=== PATIENT | female | born 1940 | race Caucasian/White ===

== ENCOUNTER 2022-10-17 13:12 | Inpatient (IN) ==
[2022-10-17] MEDS ORDERED: PANTOprazole 40 MG in SYRINGE 0 ML IV ONE (13:33)
[2022-10-17] MEDS ORDERED: SODIUM CHLORIDE 0.9% 1000ML 1,000 ML IV SCH (13:45)
[2022-10-17 13:46] LABS: iSTAT Creatinine 3.4 mg/dl (0.6-1.3); iSTAT Hemoglobin 8.8 g/dl (12.0-16.0); iSTAT Potassium 3.4 mmol/L (3.3-5.0)
[2022-10-17 13:50] LABS: Hematocrit (blood only) 26.7 % (37.0-47.0); Mean Corpuscular Hemoglobin 30.8 pg (25.0-34.0); Mean Corpuscular Hgb Conc 33.7 g/dL (32.0-36.0); Mean Corpuscular Volume 91.4 fL (80.0-100.0); Mean Platelet Volume 9.8 fL (9.4-12.4); Platelet Count 113 K/uL (130-400); RDW Coefficient of Variation 14.2 % (11.5-14.5); RDW Standard Deviation 47.2 fL (36.4-46.3); Red Blood Count 2.92 M/uL (4.20-5.40); White Blood Count 7.88 K/ul (4.8-10.8)
[2022-10-17] MEDS ORDERED: SODIUM CHLORIDE 0.9% 1000ML 1,000 ML IV ONE (14:06)
[2022-10-17 14:07] LABS: Albumin Level 3.3 gm/dl (3.4-5.0); BUN Creatinine Ratio 16.7 (10-20); Bilirubin Direct 2.8 mg/dl (0-0.2); Bilirubin,Total 3.9 mg/dl (0.2-1.0); Creatinine Clr Calc Pharmacy 14.7 ml/min; Est GFR (African American) 15.5 ml/min; Est GFR (Non-African American) 13.4 ml/min; Magnesium 1.3 mg/dl (1.7-2.4); Potassium 3.5 mmol/L (3.5-5.1); Total Protein 6.2 gm/dl (6.0-8.3)
[2022-10-17] MEDS ORDERED: CEFEPIME 2,000 MG/20 ML VIAL IV STA (14:08)
--- NOTE | 2022-10-17 14:10 | CT Scan Report ---
CT SCAN OF THE BRAIN WITHOUT IV CONTRAST CLINICAL HISTORY: Vomiting. Change in mental status. COMPARISON STUDY: CT of the brain dated 10/14/2020. TECHNIQUE: Unenhanced axial CT scan of the brain is performed from the vertex to the skull base. A do se lowering technique was utilized adhering to the principles of ALARA. FINDINGS: Brain parenchyma: There is age-related involutional change noting mild subcortical and periventricula r microangiopathic disease. There is no hemorrhage, mass effect, or evidence of acute territorial isc hemia by CT criteria. Shell-white matter differentiation is preserved. No extra-axial fluid collection is seen. Ventricles, sulci, cisterns: Prominent secondary to involutional change. Intracranial vasculature: There is atherosclerotic calcification of the cavernous carotid and vertebr al artery. Calvarium: Unremarkable. Sinuses and mastoids: There is a 1.6 cm retention cyst in the left maxillary antrum. The remaining pa ranasal sinuses are clear. The mastoid air cells are well pneumatized. Orbits: The bony orbits are grossly intact. There are bilateral ocular lens implants. IMPRESSION: There is no hemorrhage, mass effect, or evidence of acute territorial ischemia by CT duy nichols. ACT 112: Negative or not required by law. Electronically signed by: Andrew Sanders M.D. 10/17/2022 2:09 PM
--- NOTE | 2022-10-17 14:12 | CT Scan Report ---
CT chest diagnostic wo con CLINICAL HISTORY: abn cxr, ams TECHNIQUE: Multidetector row helical CT of the chest was performed. Coronal and sagittal reformations were obtained. Automated dose lowering techniques and/or adjustment according to patient size were u tilized for this exam. CT DOSE: 2837.45 mGy.cm Comparison: Comparison is made to chest radiograph 10/17/2022 FINDINGS: Lungs and pleura: Atelectasis versus scarring is seen in the dependent portions of the lungs. Heart and pericardium: Mitral enlargement is seen. Calcifications are noted. Vessels: Severe atherosclerotic changes in the aorta and coronary arteries. Mediastinum and sara: Unremarkable. Chest wall and lower neck: Unremarkable. Abdomen: For findings below the diaphragm, please refer to CT of the abdomen dated the same. Bones: Degenerative changes in the thoracic spine. IMPRESSION: 1. Atelectasis is seen without evidence of consolidation. 2. Cardiomegaly with biatrial enlargement, mitral annular calcifications are seen. ACT 112: Negative or not required by law. Electronically signed by: Sandro Arora M.D. 10/17/2022 2:11 PM
[2022-10-17 14:18] LABS: Troponin I High Sensitivity 368.7 pg/ml (0-14)
[2022-10-17 14:35] LABS: Basophils # (auto) 0.01 K/uL (0-0.2); Basophils % (auto) 0.1 %; Dohle Bodies 2+; Immature Granulocytes # (auto) 0.17 K/uL (0.01-0.20); Immature Granulocytes % (auto) 2.2 %; Lymphocytes # (auto) 0.39 K/uL (1.2-3.4); Lymphocytes % (auto) 4.9 %; Monocytes # (auto) 0.38 K/uL (0.11-0.59); Monocytes % (auto) 4.8 %; Neutrophils # (auto) 6.93 K/uL (1.40-6.50)
[2022-10-17] MEDS: MAGNESIUM SULFATE / D5W 1 GM/100 ML BAG IV SCH ×2 (14:50→16:00)
--- NOTE | 2022-10-17 14:57 | XRay Report ---
XR chest 1V portable HISTORY: Sepsis COMPARISON: None. FINDINGS: The heart is enlarged. Rotated study. No pneumothorax. There are low lung volumes. Mild john tral pulmonary vascular congestion without overt edema. Bibasilar linear densities favor subsegmental atelectasis. IMPRESSION: 1. Mild central pulmonary vascular congestion without overt edema. 2. Cardiomegaly. 3. Low lung volumes with bibasilar linear densities. This favors subsegmental atelectasis. ACT 112: Negative or not required by law. Electronically signed by: Christiano Nieto M.D. 10/17/2022 2:55 PM
--- NOTE | 2022-10-17 15:08 | CT Scan Report ---
ABDOMEN AND PELVIS CT WITHOUT CONTRAST CT DOSE: HISTORY: Nausea. Vomiting. Abdominal pain. TECHNIQUE: Multiaxial CT images of the abdomen and pelvis were performed without contrast. A dose lo wering technique was utilized adhering to the principles of ALARA. COMPARISON STUDY: None. FINDINGS: Bibasilar densities favor subsegmental atelectasis. No pneumoperitoneum. No pneumatosis. No acute fractures identified. The heart is mildly enlarged. There is a small hiatus hernia. There is a surgical clip within the proximal stomach. Hyperdense material within the proximal stomach favors in gested contents. Cholecystectomy. Hepatic steatosis. The unenhanced spleen, adrenal glands, and pancr eas unremarkable. The common bile duct is mildly distended measuring up to 11 mm. Possible 7 mm hyper dense focus at the distal common bile duct on image 140. This raises the possibility of a distal comm on bile duct stone. Bilateral cortical renal atrophy is noted. No renal or ureteral calculi. No hydro nephrosis. No retroperitoneal lymphadenopathy. Calcified plaque within the normal caliber abdominal a siri. Gas within the bladder. No bladder wall thickening. There is a small amount of gas within the v agina. The uterus and ovaries are within normal limits. No pelvic lymphadenopathy or pelvic free flui d. Colonic diverticulosis. No evidence for acute diverticulitis. Calcified nodule within the left low er quadrant adjacent to the proximal sigmoid colon. This is likely benign. No bowel wall thickening o r obstruction. Normal appendix. IMPRESSION: 1. No bowel wall thickening or obstruction. 2. Possible 7 mm stone at the distal common bile duct. Correlation with LFTs recommended. Follow-up [facility] [employer] or ERCP could also be used for further evaluation. 3. Small hiatus hernia. 4. Colonic diverticulosis. No evidence for acute diverticulitis. 5. Normal appendix. 6. Gas within the bladder. This may be due to prior catheterization. 7. Additional findings as described above. ACT 112: Negative or not required by law. Electronically signed by: Christiano Nieto M.D. 10/17/2022 3:06 PM
[2022-10-17 15:24] LABS: Base Excess VBG -2.2 mEq/L; HCO3 VBG 22 mmol/L; Oxygen Saturation VBG 92.4 %; PCO2 VBG 37 mmHg (38-50); PO2 VBG 60 mmHg; pH VBG 7.39 (7.36-7.41)
--- NOTE | 2022-10-17 15:52 | Emergency Department Note ---
Impression & Plan Altered mental status, Hypotension, Choledocholithiasis, Abnormal LFTs, Chronic kidney disease (CKD), Anemia, Prolonged QT interval ED Provider Note ED Provider Note NAME: TRAN COOK AGE:82 SEX: Female : 1940 ARRIVES VIA: EMS INFORMANT: Family ED PROVIDER(s): Yanelis Esquivel DO CHIEF COMPLAINT: Altered mental status, vomiting HPI: This is an 82-year-old female brought in by EMS due to concern for altered mental status, nausea/vomiting, and abdominal pain. Patient unable to provide history at bedside. EMS reported patient was hypotensive and mildly hypoxic in route. She was given IV fluids as well as 1 dose of push dose epinephrine push with improvement. She was placed on oxygen via nasal cannula with improvement. Family states patient complained of abdominal pain, nausea and vomiting last nig ht. She states she seemed improved and was able to go to bed. Another family member checked on her this morning and found her seated on the floor next to her bed. She did not recall falling, and thought perhaps she had slid out of bed. Family states she seemed more confused today and they were unable to get her up so 911 was contacted. Family states she did recently have a GI bleed and underw ent endoscopy. They states she does not take any blood thinners but does take a low-dose aspirin. She states she is a diabetic and they did check her blood sugar this morning prior to EMS arrival and it was in the 200s. EMS reported their check of blood glucose was in the 300s. PAST MEDICAL HISTORY:See Below PAST SURGICAL HISTORY:See Below FAMILY HISTORY:See Below SOCIAL HISTORY:See Below HOME MEDICATIONS:See Below ALLERGIES:See Below VITALS:See Below PHYSICAL EXAMINATION: GENERAL: alert, well appearing, well nourished, no distress, non-toxic HEAD: nc/at EYE EXAM: normal conjunctiva, PERRL and EOM's grossly intact OROPHARYNX: no exudate, no erythema, lips, buccal mucosa, and tongue normal and mucous membranes are dry NECK: supple, no nuchal rigidity, no adenopathy, non-tender LUNGS: Clear to auscultation. Normal chest wall mechanics, no w/r/r HEART: no murmurs, S1 normal and S2 normal ABDOMEN: abdomen soft, non-tender, normo-active bowel sounds, no masses, no rebound or guarding. BACK: Back is symmetrical on inspection and there is no deformity, no midline tenderness, no CVA tenderness. SKIN: no rashes, petechiae, orbruising UPPER EXTREMITIES: upper extremities are grossly normal. FROM, nml pulses b/l. No evidence of trauma or deformity LOWER EXTREMITIES: No pitting edema. FROM, nml pulses b/l. No evidence of trauma or deformity NEURO EXAM: Pleasantly confused, will answer simple yes/no questions, cranial nerves II-XII grossly intact, normal speech, no facial droop,nogross weakness of arms, no gross weakness of legs. Gross sensation intact. No ataxia. Vital Signs: reviewed and remarkable Differential Diagnosis: CVA, ICH, bacteremia/sepsis, dehydration, electrolyte abnormality, occult traumatic injury, colitis, bowel obstruction, pancreatitis, perforation, mesenteric ischemia, as well as others were concern MEDICAL DECISION MAKING: This is an 82 yo female who presents emerged part via EMS due to altered mental status and being found down, with unknown mechanism. Patient noted to be hypotensive and hypoxic. She was given IV fluids as well as push dose epi by EMS and route and oxygen was improved via supplemental O2 with nasal cannula. Labs drawn and sent, IV established, patient continued IV fluids and blood pressure continued to improve. EKG and chest x-ray performed at bedside and interpreted by me and patient monitored on telemetry throughout. Patient was noted to be fluid responsive and with continued IV fluids blood pressure co ntinued to improve and she was able to be dropped back to maintenance with stability. She was sent for CT imaging due to concern for trauma as well as evaluation for other etiology given reported GI symptoms preceding. Patient's mentation improved as she was treated here. She was given empiric antibiotics after blood work began to result. CT revealed common bile duct stone which likely explains her GI symptoms as well as her abnormal LFTs. Several calls were made as it was not initially clear if we had GI available who could perform ERCP. Ultimately it was determined the patient would be able to be admitted here medically with GI consult for ERCP. Patient and family updated at bedside several times and verbalized understanding. Consultation(s): 1605: Discussed with Dr. Oquendo, Intercom. 163: Discussed with Dr. Peralta. 165: Discussed with Tatyana. States Dr. Marie is available. 1735: Discussed with Robby Bustamante hospitalist team. ER Treatment Provided: See below Diagnostics Interpreted By Me: -ECG: Normal sinus at 77, normal axis, normal QRS, prolonged QT, nonspecific S T/T wave changes -Cardiac Monitoring: An order was placed for continuous cardiac monitoring. The monitor shows a rate of 68 with rhythm. -Laboratory studies: As stated above and show below. -Imaging studies: Chest x-ray:, Suboptimal, patient rotated, CM, no pneumothorax or obvious rib fx Triage Nursing Note Reviewed Prior/Outside Records Reviewed Critical Care: Critical care of 49 min performed to assess and manage high likelihood of life- threatening AMS and stable common bile duct stone, involving labs and imaging performed with assessment to evaluate AMS Diagnosis with frequent reassessment. This time includes bedside time, treatment discussions with patient/family/consultants, documentation time and excludes procedure time. Past Med/Surg History Medical History (Updated 10/19/22 @ 01:24 by Yanelis Esquivel DO) Abnormal LFTs Acute metabolic encephalopathy Anemia Choledocholithiasis CKD (chronic kidney disease), stage IV DM type 2 (diabetes mellitus, type 2) Elevated troponin Encounter for pre-operative examination HLD (hyperlipidemia) HTN (hypertension) Moderate aortic stenosis Postsurgical hypothyroidism Prolonged QT interval Surgical History History of cholecystectomy History of thyroidectomy Social History Smoking Status: Never smoker Second Hand Exposure: No; Do You Dip or Chew Tobacco: No; Tobacco Cessation Education Requested by Patient: No Hx Alcohol Use: No Hx Substance Use: No Preferred Language: Niuean Communication Ability: Effective [employer] Required: No Beliefs That Will Affect Care: None Current Living Situation: Alone Current Living Situation Comment: patient lives in senior community apartment building Other Information That Helps Us Care for You: Yes (particular about foods; please give options) Feels Safe at Home: Yes Safety Concerns: Feels Safe At This Time Assistive Devices: Walker Allergies Allergies Allergy/AdvReac Type Severity Reaction Status Date / Time sulfamethoxazole Allergy unknown Unverified 10/14/20 14:58 [From Bactrim] reaction trimethoprim [From Bactrim] Allergy unknown Unverified 10/14/20 14:58 reaction Home Meds Home Medications Medication Instructions Recorded Confirmed aspirin 81 mg tablet,delayed 81 mg PO DAILY 10/14/20 10/17/22 release (Alberto Low Dose Aspirin) atorvastatin 40 mg tablet 40 mg PO QPM 10/14/20 10/17/22 cholecalciferol (vitamin D3) 125 125 mcg PO DAILY 10/14/20 10/17/22 mcg (5,000 unit) capsule docusate sodium 100 mg capsule 100 mg PO BID PRN Other 10/14/20 10/17/22 famotidine 20 mg tablet 20 mg PO BID 10/14/20 10/17/22 furosemide 40 mg tablet 40 mg PO DAILY 10/14/20 10/17/22 gabapentin 400 mg capsule 400 mg PO BID 10/14/20 10/17/22 insulin detemir U-100 100 unit/mL 11 unit subcut HS 10/14/20 10/17/22 (3 mL) subcutaneous pen (Levemir FlexTouch U-100 Insulin) levothyroxine 50 mcg tablet 50 mcg PO DAILY 10/14/20 10/17/22 liraglutide 0.6 mg/0.1 mL (18 mg/3 1.8 mg subcut QAM 10/14/20 10/17/22 mL) subcutaneous pen injector (Victoza 3-George) sodium bicarbonate 650 mg tablet 650 mg PO BID PRN Other 10/14/20 10/17/22 calcitriol 0.25 mcg capsule 0.25 mcg PO DAILY 10/17/22 10/17/22 diclofenac sodium 1 % topical gel See Rx Instructions .Route 10/17/22 10/17/22 .COMPLEX PRN Other ezetimibe 10 mg tablet 10 mg PO DAILY 10/17/22 10/17/22 glipizide 2.5 mg tablet, extended 2.5 mg PO DAILY 10/17/22 10/17/22 release 24 hr lisinopril 20 mg tablet 20 mg PO DAILY 10/17/22 10/17/22 loratadine 10 mg tablet (Allergy 10 mg PO DAILY 10/17/22 10/17/22 Relief (loratadine)) polysaccharide iron complex 150 mg 150 mg PO BID 10/17/22 10/17/22 iron capsule (iFerex 150) Results & Data (ED) Vital Signs Vital Signs - 24 hr 10/17/22 13:23 10/17/22 13:31 10/17/22 13:31 Temperature 37.5 C Temperature Source Oral Pulse Rate 85 85 Pulse Rate [Right Finger] Pulse Rate from SpO2 Sensor Pulse Rhythm [Right Finger] Pulse Strength [Right Finger] Respiratory Rate 24 Respiratory Effort / Characteristics Respiratory Depth Respiratory Pattern Blood Pressure 96/50 L Blood Pressure [Left Arm] Blood Pressure Mean 65 Blood Pressure Mean [Left Arm] Blood Pressure Position [Left Arm] Pulse Oximetry 94 88 L Oxygen Delivery Method Nasal Cannula Room Air Oxygen Flow Rate 2 Sepsis Recent Fever Within 48 Hours No Sepsis New/Unexplained Change in Mental Status No Sepsis Action Taken by Nursing Physician Notified Oxygen Flow Rate - Titration 2 Pulse Oximetry Post Tiitration 98 10/17/22 13:44 10/17/22 13:17 10/17/22 13:19 Temperature Temperature Source Pulse Rate 84 Pulse Rate [Right Finger] Pulse Rate from SpO2 Sensor 83 Pulse Rhythm [Right Finger] Pulse Strength [Right Finger] Respiratory Rate 18 Respiratory Effort / Characteristics Respiratory Depth Respiratory Pattern Blood Pressure 89/51 L Blood Pressure [Left Arm] Blood Pressure Mean 72 Blood Pressure Mean [Left Arm] Blood Pressure Position [Left Arm] Pulse Oximetry 98 90 Oxygen Delivery Method Nasal Cannula Oxygen Flow Rate 2 2 Sepsis Recent Fever Within 48 Hours Sepsis New/Unexplained Change in Mental Status Sepsis Action Taken by Nursing Oxygen Flow Rate - Titration Pulse Oximetry Post Tiitration 10/17/22 13:19 10/17/22 13:21 10/17/22 13:21 Temperature Temperature Source Pulse Rate 89 80 Pulse Rate [Right Finger] Pulse Rate from SpO2 Sensor 83 80 Pulse Rhythm [Right Finger] Pulse Strength [Right Finger] Respiratory Rate 20 18 Respiratory Effort / Characteristics Respiratory Depth Respiratory Pattern Blood Pressure 97/47 L Blood Pressure [Left Arm] Blood Pressure Mean 63 Blood Pressure Mean [Left Arm] Blood Pressure Position [Left Arm] Pulse Oximetry 97 98 Oxygen Delivery Method Oxygen Flow Rate 2 2 Sepsis Recent Fever Within 48 Hours Sepsis New/Unexplained Change in Mental Status Sepsis Action Taken by Nursing Oxygen Flow Rate - Titration Pulse Oximetry Post Tiitration 10/17/22 13:22 10/17/22 13:22 10/17/22 13:25 Temperature Temperature Source Pulse Rate 83 80 Pulse Rate [Right Finger] Pulse Rate from SpO2 Sensor 79 79 Pulse Rhythm [Right Finger] Pulse Strength [Right Finger] Respiratory Rate 22 22 Respiratory Effort / Characteristics Respiratory Depth Respiratory Pattern Blood Pressure 98/44 L Blood Pressure [Left Arm] Blood Pressure Mean 62 Blood Pressure Mean [Left Arm] Blood Pressure Position [Left Arm] Pulse Oximetry 98 98 Oxygen Delivery Method Oxygen Flow Rate 2 2 Sepsis Recent Fever Within 48 Hours Sepsis New/Unexplained Change in Mental Status Sepsis Action Taken by Nursing Oxygen Flow Rate - Titration Pulse Oximetry Post Tiitration 10/17/22 13:25 10/17/22 13:30 10/17/22 13:30 Temperature Temperature Source Pulse Rate 77 Pulse Rate [Right Finger] Pulse Rate from SpO2 Sensor 78 Pulse Rhythm [Right Finger] Pulse Strength [Right Finger] Respiratory Rate 23 Respiratory Effort / Characteristics Respiratory Depth Respiratory Pattern Blood Pressure 88/48 L 91/46 L Blood Pressure [Left Arm] Blood Pressure Mean 63 59 Blood Pressure Mean [Left Arm] Blood Pressure Position [Left Arm] Pulse Oximetry 98 Oxygen Delivery Method Oxygen Flow Rate 2 Sepsis Recent Fever Within 48 Hours Sepsis New/Unexplained Change in Mental Status Sepsis Action Taken by Nursing Oxygen Flow Rate - Titration Pulse Oximetry Post Tiitration 10/17/22 13:35 10/17/22 13:35 10/17/22 13:40 Temperature Temperature Source Pulse Rate 81 Pulse Rate [Right Finger] Pulse Rate from SpO2 Sensor 82 Pulse Rhythm [Right Finger] Pulse Strength [Right Finger] Respiratory Rate 19 Respiratory Effort / Characteristics Respiratory Depth Respiratory Pattern Blood Pressure 94/50 L 99/53 L Blood Pressure [Left Arm] Blood Pressure Mean 68 75 Blood Pressure Mean [Left Arm] Blood Pressure Position [Left Arm] Pulse Oximetry 99 Oxygen Delivery Method Oxygen Flow Rate 2 Sepsis Recent Fever Within 48 Hours Sepsis New/Unexplained Change in Mental Status Sepsis Action Taken by Nursing Oxygen Flow Rate - Titration Pulse Oximetry Post Tiitration 10/17/22 13:40 10/17/22 13:56 10/17/22 13:57 Temperature Temperature Source Pulse Rate 76 83 Pulse Rate [Right Finger] Pulse Rate from SpO2 Sensor 76 77 Pulse Rhythm [Right Finger] Pulse Strength [Right Finger] Respiratory Rate 21 20 Respiratory Effort / Characteristics Respiratory Depth Respiratory Pattern Blood Pressure 95/51 L Blood Pressure [Left Arm] Blood Pressure Mean 69 Blood Pressure Mean [Left Arm] Blood Pressure Position [Left Arm] Pulse Oximetry 98 98 Oxygen Delivery Method Oxygen Flow Rate 2 2 Sepsis Recent Fever Within 48 Hours Sepsis New/Unexplained Change in Mental Status Sepsis Action Taken by Nursing Oxygen Flow Rate - Titration Pulse Oximetry Post Tiitration 10/17/22 13:57 10/17/22 14:00 10/17/22 14:00 Temperature Temperature Source Pulse Rate 77 74 Pulse Rate [Right Finger] Pulse Rate from SpO2 Sensor 77 72 Pulse Rhythm [Right Finger] Pulse Strength [Right Finger] Respiratory Rate 18 20 Respiratory Effort / Characteristics Respiratory Depth Respiratory Pattern Blood Pressure 89/57 L Blood Pressure [Left Arm] Blood Pressure Mean 66 Blood Pressure Mean [Left Arm] Blood Pressure Position [Left Arm] Pulse Oximetry 98 99 Oxygen Delivery Method Oxygen Flow Rate 2 2 Sepsis Recent Fever Within 48 Hours Sepsis New/Unexplained Change in Mental Status Sepsis Action Taken by Nursing Oxygen Flow Rate - Titration Pulse Oximetry Post Tiitration 10/17/22 14:05 10/17/22 14:05 10/17/22 14:10 Temperature Temperature Source Pulse Rate 73 70 Pulse Rate [Right Finger] Pulse Rate from SpO2 Sensor 74 72 Pulse Rhythm [Right Finger] Pulse Strength [Right Finger] Respiratory Rate 19 20 Respiratory Effort / Characteristics Respiratory Depth Respiratory Pattern Blood Pressure 86/49 L Blood Pressure [Left Arm] Blood Pressure Mean 62 Blood Pressure Mean [Left Arm] Blood Pressure Position [Left Arm] Pulse Oximetry 98 99 Oxygen Delivery Method Oxygen Flow Rate 2 2 Sepsis Recent Fever Within 48 Hours Sepsis New/Unexplained Change in Mental Status Sepsis Action Taken by Nursing Oxygen Flow Rate - Titration Pulse Oximetry Post Tiitration 10/17/22 14:10 10/17/22 14:15 10/17/22 14:15 Temperature Temperature Source Pulse Rate 79 Pulse Rate [Right Finger] Pulse Rate from SpO2 Sensor 77 Pulse Rhythm [Right Finger] Pulse Strength [Right Finger] Respiratory Rate 20 Respiratory Effort / Characteristics Respiratory Depth Respiratory Pattern Blood Pressure 95/50 L 93/72 L Blood Pressure [Left Arm] Blood Pressure Mean 76 80 Blood Pressure Mean [Left Arm] Blood Pressure Position [Left Arm] Pulse Oximetry 99 Oxygen Delivery Method Oxygen Flow Rate 2 Sepsis Recent Fever Within 48 Hours Sepsis New/Unexplained Change in Mental Status Sepsis Action Taken by Nursing Oxygen Flow Rate - Titration Pulse Oximetry Post Tiitration 10/17/22 14:20 10/17/22 14:20 10/17/22 14:25 Temperature Temperature Source Pulse Rate 78 77 Pulse Rate [Right Finger] Pulse Rate from SpO2 Sensor 76 74 Pulse Rhythm [Right Finger] Pulse Strength [Right Finger] Respiratory Rate 24 18 Respiratory Effort / Characteristics Respiratory Depth Respiratory Pattern Blood Pressure 108/61 Blood Pressure [Left Arm] Blood Pressure Mean 90 Blood Pressure Mean [Left Arm] Blood Pressure Position [Left Arm] Pulse Oximetry 99 99 Oxygen Delivery Method Oxygen Flow Rate 2 2 Sepsis Recent Fever Within 48 Hours Sepsis New/Unexplained Change in Mental Status Sepsis Action Taken by Nursing Oxygen Flow Rate - Titration Pulse Oximetry Post Tiitration 10/17/22 14:25 10/17/22 14:30 10/17/22 14:30 Temperature Temperature Source Pulse Rate 74 Pulse Rate [Right Finger] Pulse Rate from SpO2 Sensor 75 Pulse Rhythm [Right Finger] Pulse Strength [Right Finger] Respiratory Rate 20 Respiratory Effort / Characteristics Respiratory Depth Respiratory Pattern Blood Pressure 109/54 L 115/56 L Blood Pressure [Left Arm] Blood Pressure Mean 76 85 Blood Pressure Mean [Left Arm] Blood Pressure Position [Left Arm] Pulse Oximetry 99 Oxygen Delivery Method Oxygen Flow Rate 2 Sepsis Recent Fever Within 48 Hours Sepsis New/Unexplained Change in Mental Status Sepsis Action Taken by Nursing Oxygen Flow Rate - Titration Pulse Oximetry Post Tiitration 10/17/22 14:35 10/17/22 14:35 10/17/22 14:40 Temperature Temperature Source Pulse Rate 77 Pulse Rate [Right Finger] Pulse Rate from SpO2 Sensor 77 Pulse Rhythm [Right Finger] Pulse Strength [Right Finger] Respiratory Rate 21 Respiratory Effort / Characteristics Respiratory Depth Respiratory Pattern Blood Pressure 104/58 L 101/53 L Blood Pressure [Left Arm] Blood Pressure Mean 91 78 Blood Pressure Mean [Left Arm] Blood Pressure Position [Left Arm] Pulse Oximetry 99 Oxygen Delivery Method Oxygen Flow Rate 2 Sepsis Recent Fever Within 48 Hours Sepsis New/Unexplained Change in Mental Status Sepsis Action Taken by Nursing Oxygen Flow Rate - Titration Pulse Oximetry Post Tiitration 10/17/22 14:40 10/17/22 15:00 10/17/22 15:05 Temperature Temperature Source Pulse Rate 75 68 71 Pulse Rate [Right Finger] Pulse Rate from SpO2 Sensor 75 69 71 Pulse Rhythm [Right Finger] Pulse Strength [Right Finger] Respiratory Rate 20 19 18 Respiratory Effort / Characteristics Respiratory Depth Respiratory Pattern Blood Pressure 99/48 L 104/63 Blood Pressure [Left Arm] Blood Pressure Mean 65 76 Blood Pressure Mean [Left Arm] Blood Pressure Position [Left Arm] Pulse Oximetry 98 99 99 Oxygen Delivery Method Nasal Cannula Nasal Cannula Oxygen Flow Rate 2 2 2 Sepsis Recent Fever Within 48 Hours Sepsis New/Unexplained Change in Mental Status Sepsis Action Taken by Nursing Oxygen Flow Rate - Titration Pulse Oximetry Post Tiitration 10/17/22 15:10 10/17/22 15:20 10/17/22 15:25 Temperature Temperature Source Pulse Rate 74 73 73 Pulse Rate [Right Finger] Pulse Rate from SpO2 Sensor 71 71 72 Pulse Rhythm [Right Finger] Pulse Strength [Right Finger] Respiratory Rate 20 22 19 Respiratory Effort / Characteristics Respiratory Depth Respiratory Pattern Blood Pressure 114/51 L 100/60 98/51 L Blood Pressure [Left Arm] Blood Pressure Mean 72 73 66 Blood Pressure Mean [Left Arm] Blood Pressure Position [Left Arm] Pulse Oximetry 98 98 98 Oxygen Delivery Method Nasal Cannula Nasal Cannula Nasal Cannula Oxygen Flow Rate 2 2 2 Sepsis Recent Fever Within 48 Hours Sepsis New/Unexplained Change in Mental Status Sepsis Action Taken by Nursing Oxygen Flow Rate - Titration Pulse Oximetry Post Tiitration 10/17/22 15:30 10/17/22 15:35 10/17/22 15:40 Temperature Temperature Source Pulse Rate 73 74 73 Pulse Rate [Right Finger] Pulse Rate from SpO2 Sensor 71 73 72 Pulse Rhythm [Right Finger] Pulse Strength [Right Finger] Respiratory Rate 23 17 20 Respiratory Effort / Characteristics Respiratory Depth Respiratory Pattern Blood Pressure 97/54 L 100/59 L 106/53 L Blood Pressure [Left Arm] Blood Pressure Mean 68 72 70 Blood Pressure Mean [Left Arm] Blood Pressure Position [Left Arm] Pulse Oximetry 98 98 98 Oxygen Delivery Method Nasal Cannula Nasal Cannula Nasal Cannula Oxygen Flow Rate 2 2 2 Sepsis Recent Fever Within 48 Hours Sepsis New/Unexplained Change in Mental Status Sepsis Action Taken by Nursing Oxygen Flow Rate - Titration Pulse Oximetry Post Tiitration 10/17/22 15:45 10/17/22 15:50 10/17/22 15:55 Temperature Temperature Source Pulse Rate 73 70 67 Pulse Rate [Right Finger] Pulse Rate from SpO2 Sensor 68 69 68 Pulse Rhythm [Right Finger] Pulse Strength [Right Finger] Respiratory Rate 23 19 19 Respiratory Effort / Characteristics Respiratory Depth Respiratory Pattern Blood Pressure 99/50 L 98/54 L 99/53 L Blood Pressure [Left Arm] Blood Pressure Mean 66 68 68 Blood Pressure Mean [Left Arm] Blood Pressure Position [Left Arm] Pulse Oximetry 98 98 98 Oxygen Delivery Method Nasal Cannula Nasal Cannula Nasal Cannula Oxygen Flow Rate 2 2 2 Sepsis Recent Fever Within 48 Hours Sepsis New/Unexplained Change in Mental Status Sepsis Action Taken by Nursing Oxygen Flow Rate - Titration Pulse Oximetry Post Tiitration 10/17/22 16:27 Temperature 37.0 C Temperature Source Oral Pulse Rate Pulse Rate [Right Finger] 70 Pulse Rate from SpO2 Sensor Pulse Rhythm [Right Finger] Regular Pulse Strength [Right Finger] Normal Respiratory Rate 18 Respiratory Effort / Characteristics Non-Labored Spontaneous Respiratory Depth Normal Respiratory Pattern Regular Blood Pressure Blood Pressure [Left Arm] 102/53 L Blood Pressure Mean Blood Pressure Mean [Left Arm] 69 Blood Pressure Position [Left Arm] Semi-fowlers Pulse Oximetry 99 Oxygen Delivery Method Nasal Cannula Oxygen Flow Rate 2 Sepsis Recent Fever Within 48 Hours Sepsis New/Unexplained Change in Mental Status Sepsis Action Taken by Nursing Oxygen Flow Rate - Titration Pulse Oximetry Post Tiitration Laboratory Data 10/17/22 13:21 10/17/22 13:21 Lab Results 10/17/22 10/17/22 10/17/22 Range/Units 13:21 13:21 13:21 WBC 7.88 (4.8-10.8) K/ul RBC 2.92 L (4.20-5.40) M/uL Hgb 9.0 L (12.0-16.0) g/dl POC Hgb (12.0-16.0) g/dl Hct 26.7 L (37.0-47.0) % POC Hct (37-47) % MCV 91.4 (80.0-100.0) fL MCH 30.8 (25.0-34.0) pg MCHC 33.7 (32.0-36.0) g/dL RDW Std Deviation 47.2 H (36.4-46.3) fL RDW Coeff of Aysha 14.2 (11.5-14.5) % Plt Count 113 L (130-400) K/uL MPV 9.8 (9.4-12.4) fL Immature Gran % (Auto) 2.2 % Neut % (Auto) 88.0 % Lymph % (Auto) 4.9 % [place] % (Auto) 4.8 % Eos % (Auto) 0.0 % Baso % (Auto) 0.1 % Neut # (Auto) 6.93 H (1.40-6.50) K/uL Lymph # (Auto) 0.39 L (1.2-3.4) K/uL [place] # (Auto) 0.38 (0.11-0.59) K/uL Eos # (Auto) 0.00 (0-0.50) K/uL Baso # (Auto) 0.01 (0-0.2) K/uL Immature Gran # (Auto) 0.17 (0.01-0.20) K/uL Dohle Bodies 2+ VBG pH (7.36-7.41) VBG pCO2 (38-50) mmHg VBG pO2 mmHg VBG HCO3 mmol/L VBG O2 Saturation % VBG Base Excess mEq/L POC Sodium (135-144) mmol/L Sodium 133 L (136-145) mmol/L POC Potassium (3.3-5.0) mmol/L Potassium 3.5 (3.5-5.1) mmol/L POC Chloride (101-112) mmol/L Chloride 97 L (98-107) mmol/L Carbon Dioxide 24 (21-32) mmol/L POC Total CO2 (24-31) mmol/L Anion Gap 12 H (3-11) POC Anion Gap (16-25) mmol/L POC BUN (7-18) mg/dl BUN 51 H (6-23) mg/dl Creatinine 3.06 H (0.6-1.2) mg/dl POC Creatinine (0.6-1.3) mg/dl Est Cr Clr Drug Dosing 14.7 ml/min Est GFR ( Amer) 15.5 ml/min Est GFR (Non-Af Amer) 13.4 ml/min BUN/Creatinine Ratio 16.7 (10-20) Glucose 248 H (70-99(Fasting)) mg/dl POC Glucose (other) (70-99) mg/dl Lactate (0.4-2.0) mmol/L Calcium 8.0 L (8.6-10.3) mg/dl POC Ioniz Calcium Art (1.12-1.32) mmol/l Magnesium 1.3 L (1.7-2.4) mg/dl Total Bilirubin 3.9 H (0.2-1.0) mg/dl Direct Bilirubin 2.8 H (0-0.2) mg/dl AST 383 H (13-39) U/L ALT 416 H (7-52) U/L Alkaline Phosphatase 154 H (34-104) U/L Total Creatine Kinase 281 H (26-192) U/L Troponin I High Sens 368.7 H* (0-14) pg/ml Total Protein 6.2 (6.0-8.3) gm/dl Albumin 3.3 L (3.4-5.0) gm/dl Procalcitonin > 200.00 H (0-0.5) ng/ml Enterobacterales (PCR) (NotDetected) E. coli (PCR) (NotDetected) mcr-1 Colistin Res Gene PCR (NotDetected) blaIMP Car res Gene PCR (NotDetected) KPC-Carbap Res Gene PCR (NotDetected) blaNDM Car Res Gene PCR (NotDetected) OXA-48 Carbapenem Resis Gene (PCR) (NotDetected) blaVIM Car Res Gene PCR (NotDetected) CTX-M Gene Resistance (PCR) (NotDetected) Bld Cult ID Panel PCR (NotDetected) Blood Type Antibody Screen Antibody Identification Antibody ID Comment 10/17/22 10/17/22 10/17/22 Range/Units 13:21 13:30 13:34 WBC (4.8-10.8) K/ul RBC (4.20-5.40) M/uL Hgb (12.0-16.0) g/dl POC Hgb 8.8 L (12.0-16.0) g/dl Hct (37.0-47.0) % POC Hct 26 L (37-47) % MCV (80.0-100.0) fL MCH (25.0-34.0) pg MCHC (32.0-36.0) g/dL RDW Std Deviation (36.4-46.3) fL RDW Coeff of Aysha (11.5-14.5) % Plt Count (130-400) K/uL MPV (9.4-12.4) fL Immature Gran % (Auto) % Neut % (Auto) % Lymph % (Auto) % [place] % (Auto) % Eos % (Auto) % Baso % (Auto) % Neut # (Auto) (1.40-6.50) K/uL Lymph # (Auto) (1.2-3.4) K/uL [place] # (Auto) (0.11-0.59) K/uL Eos # (Auto) (0-0.50) K/uL Baso # (Auto) (0-0.2) K/uL Immature Gran # (Auto) (0.01-0.20) K/uL Dohle Bodies VBG pH (7.36-7.41) VBG pCO2 (38-50) mmHg VBG pO2 mmHg VBG HCO3 mmol/L VBG O2 Saturation % VBG Base Excess mEq/L POC Sodium 133 L (135-144) mmol/L Sodium (136-145) mmol/L POC Potassium 3.4 (3.3-5.0) mmol/L Potassium (3.5-5.1) mmol/L POC Chloride 95 L (101-112) mmol/L Chloride (98-107) mmol/L Carbon Dioxide (21-32) mmol/L POC Total CO2 22 L (24-31) mmol/L Anion Gap (3-11) POC Anion Gap 20.0 (16-25) mmol/L POC BUN 45 H (7-18) mg/dl BUN (6-23) mg/dl Creatinine (0.6-1.2) mg/dl POC Creatinine 3.4 H (0.6-1.3) mg/dl Est Cr Clr Drug Dosing ml/min Est GFR ( Amer) ml/min Est GFR (Non-Af Amer) ml/min BUN/Creatinine Ratio (10-20) Glucose (70-99(Fasting)) mg/dl POC Glucose (other) 262 H (70-99) mg/dl Lactate 2.4 H* (0.4-2.0) mmol/L Calcium (8.6-10.3) mg/dl POC Ioniz Calcium Art 1.00 L (1.12-1.32) mmol/l Magnesium (1.7-2.4) mg/dl Total Bilirubin (0.2-1.0) mg/dl Direct Bilirubin (0-0.2) mg/dl AST (13-39) U/L ALT (7-52) U/L Alkaline Phosphatase (34-104) U/L Total Creatine Kinase (26-192) U/L Troponin I High Sens (0-14) pg/ml Total Protein (6.0-8.3) gm/dl Albumin (3.4-5.0) gm/dl Procalcitonin (0-0.5) ng/ml Enterobacterales (PCR) DETECTED A (NotDetected) E. coli (PCR) DETECTED A (NotDetected) mcr-1 Colistin Res Gene PCR Not Detected (NotDetected) blaIMP Car res Gene PCR Not Detected (NotDetected) KPC-Carbap Res Gene PCR Not Detected (NotDetected) blaNDM Car Res Gene PCR Not Detected (NotDetected) OXA-48 Carbapenem Resis Gene (PCR) Not Detected (NotDetected) blaVIM Car Res Gene PCR Not Detected (NotDetected) CTX-M Gene Resistance (PCR) Not Detected (NotDetected) Bld Cult ID Panel PCR See PCR Comment (NotDetected) Blood Type Antibody Screen Antibody Identification Antibody ID Comment 10/17/22 10/17/22 10/17/22 Range/Units 14:00 15:19 16:14 WBC (4.8-10.8) K/ul RBC (4.20-5.40) M/uL Hgb (12.0-16.0) g/dl POC Hgb (12.0-16.0) g/dl Hct (37.0-47.0) % POC Hct (37-47) % MCV (80.0-100.0) fL MCH (25.0-34.0) pg MCHC (32.0-36.0) g/dL RDW Std Deviation (36.4-46.3) fL RDW Coeff of Aysha (11.5-14.5) % Plt Count (130-400) K/uL MPV (9.4-12.4) fL Immature Gran % (Auto) % Neut % (Auto) % Lymph % (Auto) % [place] % (Auto) % Eos % (Auto) % Baso % (Auto) % Neut # (Auto) (1.40-6.50) K/uL Lymph # (Auto) (1.2-3.4) K/uL [place] # (Auto) (0.11-0.59) K/uL Eos # (Auto) (0-0.50) K/uL Baso # (Auto) (0-0.2) K/uL Immature Gran # (Auto) (0.01-0.20) K/uL Dohle Bodies VBG pH 7.39 (7.36-7.41) VBG pCO2 37 L (38-50) mmHg VBG pO2 60 mmHg VBG HCO3 22 mmol/L VBG O2 Saturation 92.4 % VBG Base Excess -2.2 mEq/L POC Sodium (135-144) mmol/L Sodium (136-145) mmol/L POC Potassium (3.3-5.0) mmol/L Potassium (3.5-5.1) mmol/L POC Chloride (101-112) mmol/L Chloride (98-107) mmol/L Carbon Dioxide (21-32) mmol/L POC Total CO2 (24-31) mmol/L Anion Gap (3-11) POC Anion Gap (16-25) mmol/L POC BUN (7-18) mg/dl BUN (6-23) mg/dl Creatinine (0.6-1.2) mg/dl POC Creatinine (0.6-1.3) mg/dl Est Cr Clr Drug Dosing ml/min Est GFR ( Amer) ml/min Est GFR (Non-Af Amer) ml/min BUN/Creatinine Ratio (10-20) Glucose (70-99(Fasting)) mg/dl POC Glucose (other) (70-99) mg/dl Lactate 1.5 (0.4-2.0) mmol/L Calcium (8.6-10.3) mg/dl POC Ioniz Calcium Art (1.12-1.32) mmol/l Magnesium (1.7-2.4) mg/dl Total Bilirubin (0.2-1.0) mg/dl Direct Bilirubin (0-0.2) mg/dl AST (13-39) U/L ALT (7-52) U/L Alkaline Phosphatase (34-104) U/L Total Creatine Kinase (26-192) U/L Troponin I High Sens (0-14) pg/ml Total Protein (6.0-8.3) gm/dl Albumin (3.4-5.0) gm/dl Procalcitonin (0-0.5) ng/ml Enterobacterales (PCR) (NotDetected) E. coli (PCR) (NotDetected) mcr-1 Colistin Res Gene PCR (NotDetected) blaIMP Car res Gene PCR (NotDetected) KPC-Carbap Res Gene PCR (NotDetected) blaNDM Car Res Gene PCR (NotDetected) OXA-48 Carbapenem Resis Gene (PCR) (NotDetected) blaVIM Car Res Gene PCR (NotDetected) CTX-M Gene Resistance (PCR) (NotDetected) Bld Cult ID Panel PCR (NotDetected) Blood Type O Negative Antibody Screen POSITIVE A Antibody Identification Anti-E Antibody ID Comment Administered Medications Aspirin (Aspirin 81 Mg Ectab) 81 mg PO DAILY [facility] Stop: 11/17/22 08:59 Last Admin: 10/18/22 08:59 Dose: 81 mg Documented By: CAMACHO Calcitriol (Calcitriol 0.25 Mcg Capsule) 0.25 mcg PO DAILY [facility] Stop: 11/17/22 08:59 Last Admin: 10/18/22 08:59 Dose: 0.25 mcg Documented By: CAMACHO Famotidine (Famotidine 20 Mg Tab) 20 mg PO BID [facility] Stop: 11/16/22 20:59 Last Admin: 10/18/22 21:03 Dose: 20 mg Documented By: Admin: 10/18/22 08:58 Dose: 20 mg Documented By: Admin: 10/17/22 21:44 Dose: 20 mg Documented By: MARGA Gabapentin (Gabapentin 400 Mg Cap) 400 mg PO BID [facility] Stop: 11/16/22 20:59 Last Admin: 10/18/22 21:03 Dose: 400 mg Documented By: Admin: 10/18/22 08:58 Dose: 400 mg Documented By: Admin: 10/17/22 21:44 Dose: 400 mg Documented By: MARGA Piperacillin Sod/Tazobactam (Sod 4.5 gm/ Dextrose) 120 mls @ 30 mls/hr IV Q12H [facility]; Protocol Stop: 10/28/22 03:59 Last Admin: 10/18/22 16:53 Dose: 30 mls/hr Documented By: Infusion: 10/18/22 09:10 Dose: 0 mls/hr Documented By: Admin: 10/18/22 05:08 Dose: 30 mls/hr Documented By: MARGA Sodium Chloride (Nss 1000ml) 1,000 mls @ 80 mls/hr IV .[id number] [facility] Stop: 10/19/22 10:14 Last Admin: 10/18/22 09:48 Dose: 80 mls/hr Documented By: CAMACHO Insulin Aspart (Insulin Aspart Per Unit Charge) 0 units SC ACHS [facility] Stop: 11/16/22 20:59 Last Admin: 10/18/22 21:03 Dose: 7 units Documented By: MARGA Co-signed By: JOSE Admin: 10/18/22 17:38 Dose: 2 units Documented By: RLJozef Co-signed By: RT Admin: 10/18/22 12:17 Dose: 1 units Documented By: RLJozef Co-signed By: [email or web address] Admin: 10/18/22 08:59 Dose: 1 units Documented By: RLJozef Co-signed By: RT Admin: 10/17/22 21:21 Dose: 5 units Documented By: DLP Co-signed By: EDILBERTO Insulin Glargine (Lantus Per Unit Charge) 0 units SQ HS [facility]; Protocol Stop: 11/16/22 20:59 Last Admin: 10/18/22 21:04 Dose: 10 units Documented By: DLArchana Co-signed By: JOSE Admin: 10/17/22 23:47 Dose: 10 units Documented By: DLArchana Co-signed By: EDILBERTO Levothyroxine Sodium (Levothyroxine Sodium 50 Mcg Tablet) 50 mcg PO DAILYBB [facility] Stop: 11/17/22 06:29 Last Admin: 10/18/22 06:59 Dose: 50 mcg Documented By: MARGA Polysaccharide Iron Complex (Iron Polysaccharide Complex 150 Mg Capsule) 150 mg PO BID [facility] Stop: 11/16/22 20:59 Last Admin: 10/18/22 21:03 Dose: 150 mg Documented By: Admin: 10/18/22 08:58 Dose: 150 mg Documented By: Admin: 10/17/22 21:44 Dose: 150 mg Documented By: MARGA Discontinued Medications Sodium Chloride (Nss 1000ml) 1,000 mls @ 999 mls/hr IV .Q1H1M [facility] Stop: 10/17/22 14:45 Last Infusion: 10/17/22 14:56 Dose: 0 mls/hr Documented By: Admin: 10/17/22 14:03 Dose: 999 mls/hr Documented By: ARCELIA Pantoprazole Sodium 40 mg/ (Syringe) 10 mls @ 5 mls/min IV NOW ONE Stop: 10/17/22 13:34 Last Admin: 10/17/22 14:04 Dose: 5 mls/min Documented By: ARCELIA Sodium Chloride (Nss 1000ml) 1,000 mls @ 999 mls/hr IV .Q1H1M ONE Stop: 10/17/22 15:06 Last Infusion: 10/17/22 16:11 Dose: 0 mls/hr Documented By: Admin: 10/17/22 14:16 Dose: 999 mls/hr Documented By: ARCELIA Cefepime HCl (Maxipime) 2,000 mg in 20 mls @ 5 mls/min IV NOW STA; Protocol Stop: 10/17/22 14:11 Last Admin: 10/17/22 14:27 Dose: 5 mls/min Documented By: ARCELIA Magnesium Sulfate/Dextrose (Magnesium Sulfate / D5w) 1 gm in 100 mls @ 100 mls/hr IV Q1H [facility] Stop: 10/17/22 16:36 Last Infusion: 10/17/22 17:20 Dose: 0 mls/hr Documented By: Admin: 10/17/22 16:00 Dose: 100 mls/hr Documented By: Infusion: 10/17/22 15:50 Dose: 100 mls/hr Documented By: Admin: 10/17/22 14:50 Dose: 100 mls/hr Documented By: ARCELIA Lactated Ringer's (Lr) 1,000 mls @ 125 mls/hr IV .Q8H [facility] Stop: 10/18/22 07:44 Last Infusion: 10/18/22 08:15 Dose: 0 mls/hr Documented By: Admin: 10/17/22 21:42 Dose: 125 mls/hr Documented By: Infusion: 10/17/22 21:42 Dose: 125 mls/hr Documented By: Admin: 10/17/22 16:18 Dose: 125 mls/hr Documented By: QGV Piperacillin Sod/Tazobactam (Sod 4.5 gm/ Dextrose) 120 mls @ 240 mls/hr IV ONE ONE; Protocol Stop: 10/17/22 20:29 Last Infusion: 10/18/22 05:04 Dose: 0 mls/hr Documented By: DLArchana Admin: 10/17/22 21:41 Dose: 240 mls/hr Documented By: DLP Imaging Data Radiologist's Impression: Chest X-Ray 10/17/22 13:31 XR chest 1V portable HISTORY: Sepsis COMPARISON: None. FINDINGS: The heart is enlarged. Rotated study. No pneumothorax. There are low lung volumes. Mild central pulmonary vascular congestion without overt edema. Bibasilar linear densities favor subsegmental atelectasis. IMPRESSION: 1. Mild central pulmonary vascular congestion without overt edema. 2. Cardiomegaly. 3. Low lung volumes with bibasilar linear densities. This favors subsegmental atelectasis. ACT 112: Negative or not required by law. Electronically signed by: Christiano Nieto M.D. 10/17/2022 2:55 PM Abdomen/Pelvis CT 10/17/22 13:[address] WITHOUT CONTRAST CT DOSE: HISTORY: Nausea. Vomiting. Abdominal pain. TECHNIQUE: Multiaxial CT images of the abdomen and pelvis were performed without contrast. A dose lowering technique was utilized adhering to the principles of ALARA. COMPARISON STUDY: None. FINDINGS: Bibasilar densities favor subsegmental atelectasis. No pneumoperitoneum. No pneumatosis. No acute fractures identified. The heart is mildly enlarged. There is a small hiatus hernia. There is a surgical clip within the proximal stomach. Hyperdense material within the proximal stomach favors ingested contents. Cholecystectomy. Hepatic steatosis. The unenhanced spleen, adrenal glands, and pancreas unremarkable. The common bile duct is mildly distended measuring up to 11 mm. Possible 7 mm hyperdense focus at the distal common bile duct on image 140. This raises the possibility of a distal common bile duct stone. Bilateral cortical renal atrophy is noted. No renal or ureteral calculi. No hydronephrosis. No retroperitoneal lymphadenopathy. Calcified plaque within the normal caliber abdominal aorta. Gas within the bladder. No bladder wall thickening. There is a small amount of gas within the vagina. The uterus and ovaries are within normal limits. No pelvic lymphadenopathy or pelvic free fluid. Colonic diverticulosis. No evidence for acute diverticulitis. Calcified nodule within the left lower quadrant adjacent to the proximal sigmoid colon. This is likely benign. No bowel wall thickening or obstruction. Normal appendix. IMPRESSION: 1. No bowel wall thickening or obstruction. 2. Possible 7 mm stone at the distal common bile duct. Correlation with LFTs recommended. Follow-up MRCP or ERCP could also be used for further evaluation. 3. Small hiatus hernia. 4. Colonic diverticulosis. No evidence for acute diverticulitis. 5. Normal appendix. 6. Gas within the bladder. This may be due to prior catheterization. 7. Additional findings as described above. ACT 112: Negative or not required by law. Electronically signed by: Christiano Nieto M.D. 10/17/2022 3:[address] 10/17/22 13:32 CT SCAN OF THE BRAIN WITHOUT IV CONTRAST CLINICAL HISTORY: Vomiting. Change in mental status. COMPARISON STUDY: CT of the brain dated 10/14/2020. TECHNIQUE: Unenhanced axial CT scan of the brain is performed from the vertex to the skull base. A dose lowering technique was utilized adhering to the principles of ALARA. FINDINGS: Brain parenchyma: There is age-related involutional change noting mild subcortical and periventricular microangiopathic disease. There is no hemorrhage, mass effect, or evidence of acute territorial ischemia by CT criteria. Shell-white matter differentiation is preserved. No extra-axial fluid collection is seen. Ventricles, sulci, cisterns: Prominent secondary to involutional change. Intracranial vasculature: There is atherosclerotic calcification of the cavernous carotid and vertebral artery. Calvarium: Unremarkable. Sinuses and mastoids: There is a 1.6 cm retention cyst in the left maxillary antrum. The remaining paranasal sinuses are clear. The mastoid air cells are well pneumatized. Orbits: The bony orbits are grossly intact. There are bilateral ocular lens implants. IMPRESSION: There is no hemorrhage, mass effect, or evidence of acute territorial ischemia by CT criteria. ACT 112: Negative or not required by law. Electronically signed by: Andrew Sanders M.D. 10/17/2022 2:[address] 10/17/22 13:45 CT chest diagnostic wo con CLINICAL HISTORY: abn cxr, ams TECHNIQUE: Multidetector row helical CT of the chest was performed. Coronal and sagittal reformations were obtained. Automated dose lowering techniques and/or adjustment according to patient size were utilized for this exam. CT DOSE: 2837.45 mGy.cm Comparison: Comparison is made to chest radiograph 10/17/2022 FINDINGS: Lungs and pleura: Atelectasis versus scarring is seen in the dependent portions of the lungs. Heart and pericardium: Mitral enlargement is seen. Calcifications are noted. Vessels: Severe atherosclerotic changes in the aorta and coronary arteries. Mediastinum and sara: Unremarkable. Chest wall and lower neck: Unremarkable. Abdomen: For findings below the diaphragm, please refer to CT of the abdomen dated the same. Bones: Degenerative changes in the thoracic spine. IMPRESSION: 1. Atelectasis is seen without evidence of consolidation. 2. Cardiomegaly with biatrial enlargement, mitral annular calcifications are seen. ACT 112: Negative or not required by law. Electronically signed by: Sandro Arora M.D. 10/17/2022 2:11 PM Discharge Plan Visit Data Chief Complaint: Seizure Stated Complaint: SEIZURE ED Provider: Yanelis Esquivel Discharge Problem: Altered mental status, Hypotension, Choledocholithiasis, Abnormal LFTs, Chronic kidney disease (CKD), Anemia, Prolonged QT interval Patient Disposition: Admitted As Inpatient Discharge Instructions Interventions: ED Discharge Assessment Last Done: 10/17/22 19:09
[2022-10-17] MEDS: LACTATED RINGER'S 1,000 ML IV SCH ×2 (16:18→21:42)
--- NOTE | 2022-10-17 17:37 | Electrocardiogram Report ---
Test Reason : Blood Pressure : / mmHG Vent. Rate : 077 BPM Atrial Rate : 077 BPM P-R Int : 156 ms QRS Dur : 096 ms QT Int : 464 ms P-R-T Axes : 060 -06 020 degrees QTc Int : 525 ms Normal sinus rhythm Moderate voltage criteria for LVH, may be normal variant Prolonged QT Abnormal ECG No previous ECGs available Confirmed by Ryan Osborn ([id number]) on 10/17/2022 5:36:35 PM Referred By: REFERRED SELF Confirmed By:Gary Osborn
[2022-10-17] MEDS ORDERED: DEXTROSE 50% 50 ML SYRINGE IV PRN (19:49)
[2022-10-17] MEDS ORDERED: CARBOHYDRATES FOR HYPOGLYCEMIA PO PRN (19:49)
[2022-10-17] MEDS ORDERED: GLUCAGON FOR INJ 1 MG VIAL SQ PRN (19:49)
[2022-10-17] MEDS ORDERED: PHARMACY GLYCEMIC MGMT CONSULT PRN (19:49)
[2022-10-17] MEDS ORDERED: GLUCOSE 10 TAB/TUBE PO PRN (19:49)
[2022-10-17] MEDS ORDERED: DOCUSATE SODIUM 100 MG CAP PO PRN (19:49)
[2022-10-17] MEDS ORDERED: GLUCOSE 40% GEL 15 GM TUBE PO PRN (19:49)
[2022-10-17] MEDS ORDERED: PIPERACILLIN/TAZOBACTAM 4.5 GM in DEXTROSE 5% 100 ML IV ONE (20:00)
--- NOTE | 2022-10-17 20:27 | History & Physical Report ---
Date of Service October 17, 2022 Assessment & Plan (1) Choledocholithiasis: (2) Acute metabolic encephalopathy: Plan: Admit to telemetry Patient presenting from home with reports of vomiting, confusion, generalized weakness. In the ED, found to have transaminitis and CT ABD/pelvis showing 7 mm stone in the common bile duct. Noted prior history of laparoscopic cholecystectomy in 2020. Received IV cefepime in the ED, will continue with empiric Zosyn. Leukocytosis and elevated procalcitonin noted, currently afebrile. Follow blood cultures GI consult, tentatively planning ERCP tomorrow (3) Elevated troponin: Plan: HS troponin 368 No reports of chest pain, EKG without acute ST changes Continue to trend troponin, resting echo prior to GI procedure tomorrow (4) Prolonged QT interval: Plan: QTc 525 Avoid QTc prolonging agents Daily EKG (5) Moderate aortic stenosis: Plan: Moderate aortic stenosis on echo 01/2022, updating echo as above (6) CKD (chronic kidney disease), stage IV: Plan: Creatinine 3.0, unknown baseline, PCP records requested (7) HTN (hypertension): Plan: Holding lisinopril due to hypotension in route to the ED and also unknown baseline creatinine (8) DM type 2 (diabetes mellitus, type 2): Plan: Unknown Hgb A1c, will obtain with a.m. labs Lantus NovoLog per protocol while hospitalized (9) Anemia: Plan: Hgb 9.0, unknown baseline, PCP records requested Suspect some component of chronic anemia due to underlying CKD Continue iron replacement (10) Postsurgical hypothyroidism: Plan: Continue levothyroxine (11) HLD (hyperlipidemia): Plan: Holding statin due to elevated FTs DVT PROPHYLAXIS SCDs due to tentative GI procedure tomorrow Patient seen in collaboration with Dr. Rodriguez. I spent a total of 75 minutes coordinating, documenting, and providing care for this patient excluding time spent in the performance of separately billed services. This included personally reviewing all current laboratories and imaging studies, medication reconciliation, outpatient chart review, and discussion with specialists. Admission and Anticipated Discharge Date Admission Date: October 17, 2022 History of Present Illness Chief Complaint: Abdominal pain, vomiting, confusion, weakness Primary Care Provider: Ephraim Drummond 82-year-old female with PMH DM type II, HTN, CKD stage IV, anemia, HLD, and other problems listed below who presents to the ED for evaluation of abdominal pain, vomiting, confusion, generalized weakness. History obtained from the patient and daughter at the bedside as well as review of outpatient cardiology records. Last evening around 5:00, patient developed vomiting. Daughter states that patient struggles with chronic nausea and vomiting from time to time however this was much worse last evening. Patient had gone to bed and states that she woke up around 4 AM to go to the bathroom and she slid out of bed onto the floor. Granddaughter found her on the floor at 730. Patient progressively got more confused and generally weak throughout the day and also with worsening vomiting. EMS was called and patient was brought to the ED for further evaluation. Patient denies fevers and chills. No chest pain or shortness of breath. Denies lightheadedness, dizziness, diaphoresis, syncopal events. No urinary symptoms. Patient did require a small dose of epinephrine in route due to hypotension, BPs have since been stable. In the ED, labs show transaminitis, HS troponin 368, procalcitonin > 200. CT ABD/pelvis shows 7 mm stone in the common bile duct. Patient was given IV cefepime, IV Protonix, IVF. Allergies Allergy/AdvReac Type Severity Reaction Status Date / Time sulfamethoxazole Allergy unknown Unverified 10/14/20 14:58 [From Bactrim] reaction trimethoprim [From Bactrim] Allergy unknown Unverified 10/14/20 14:58 reaction Home Medications Medication Instructions Recorded Confirmed Type aspirin 81 mg tablet,delayed 81 mg PO DAILY 10/14/20 10/17/22 History release (Alberto Low Dose Aspirin) atorvastatin 40 mg tablet 40 mg PO QPM 10/14/20 10/17/22 History cholecalciferol (vitamin D3) 125 125 mcg PO DAILY 10/14/20 10/17/22 History mcg (5,000 unit) capsule docusate sodium 100 mg capsule 100 mg PO BID PRN Other 10/14/20 10/17/22 History famotidine 20 mg tablet 20 mg PO BID 10/14/20 10/17/22 History furosemide 40 mg tablet 40 mg PO DAILY 10/14/20 10/17/22 History gabapentin 400 mg capsule 400 mg PO BID 10/14/20 10/17/22 History insulin detemir U-100 100 unit/mL 11 unit subcut HS 10/14/20 10/17/22 History (3 mL) subcutaneous pen (Levemir FlexTouch U-100 Insulin) levothyroxine 50 mcg tablet 50 mcg PO DAILY 10/14/20 10/17/22 History liraglutide 0.6 mg/0.1 mL (18 mg/3 1.8 mg subcut QAM 10/14/20 10/17/22 History mL) subcutaneous pen injector (Victoza 3-George) sodium bicarbonate 650 mg tablet 650 mg PO BID PRN Other 10/14/20 10/17/22 History calcitriol 0.25 mcg capsule 0.25 mcg PO DAILY 10/17/22 10/17/22 History diclofenac sodium 1 % topical gel See Rx Instructions .Route 10/17/22 10/17/22 History .COMPLEX PRN Other ezetimibe 10 mg tablet 10 mg PO DAILY 10/17/22 10/17/22 History glipizide 2.5 mg tablet, extended 2.5 mg PO DAILY 10/17/22 10/17/22 History release 24 hr lisinopril 20 mg tablet 20 mg PO DAILY 10/17/22 10/17/22 History loratadine 10 mg tablet (Allergy 10 mg PO DAILY 10/17/22 10/17/22 History Relief (loratadine)) polysaccharide iron complex 150 mg 150 mg PO BID 10/17/22 10/17/22 History iron capsule (iFerex 150) Past Med/Surg History Medical History (Updated 10/17/22 @ 20:16 by DIVINE Jones) Anemia CKD (chronic kidney disease), stage IV DM type 2 (diabetes mellitus, type 2) HLD (hyperlipidemia) HTN (hypertension) Moderate aortic stenosis Postsurgical hypothyroidism Surgical History History of cholecystectomy History of thyroidectomy Social History Smoking Status: Never smoker Second Hand Exposure: No; Do You Dip or Chew Tobacco: No; Tobacco Cessation Education Requested by Patient: No Hx Alcohol Use: No Hx Substance Use: No Preferred Language: Greenlandic Communication Ability: Effective Medical Coding Specialist Required: No Beliefs That Will Affect Care: None Current Living Situation: Alone Current Living Situation Comment: patient lives in [facility] apartment building Other Information That Helps Us Care for You: Yes (particular about foods; please give options) Feels Safe at Home: Yes Safety Concerns: Feels Safe At This Time Assistive Devices: Denture - Upper, Denture - Lower, Glasses and Walker Review of Systems Review of Systems: ROS per HPI, all other systems reviewed and negative Physical Exam Constitutional: WD/WN, vitals as above no acute distress Eyes: PERRL, conjunctivae normal, anicteric sclerae ENMT: external ear and nose normal, oropharynx normal Respiratory: normal respiratory effort, lungs clear to auscultation Cardiovascular: Rate/Rhythm: regular rate and regular rhythm Heart Sounds: + murmur (Grade 3/6, systolic) Vessels: normal peripheral pulses Extremities: no edema Gastrointestinal (Abdomen): normal bowel sounds, soft, nontender, no hepatosplenomegaly Musculoskeletal: no cyanosis or clubbing, extremities motor strength 5/5 Skin: no rashes, warm and dry Neurologic: PERRL, EOMI, accommodation nl, no face palsy, no dysarthria Psychiatric: A+Ox3, euthymic affect Cognition: + recent memory not intact Insight: + limited insight Results & Data Results & Data Vital Signs (Past 12 Hours) Vital Signs Temp Pulse Pulse Resp BP BP Pulse Ox 10/17/22 19:09 37.1 C 67 20 125/65 100 10/17/22 19:04 67 21 125/65 99 10/17/22 18:55 66 20 115/61 100 10/17/22 18:50 67 20 118/76 100 10/17/22 18:40 66 18 115/64 100 10/17/22 18:30 65 18 128/51 L 100 10/17/22 18:20 66 19 112/54 L 99 10/17/22 18:15 64 17 110/62 100 10/17/22 18:10 68 18 117/55 L 98 10/17/22 18:05 65 16 113/64 100 10/17/22 18:04 68 18 110/58 L 99 10/17/22 17:35 71 22 120/59 L 100 10/17/22 17:30 70 24 124/61 99 10/17/22 17:27 73 20 117/72 99 10/17/22 17:15 68 21 118/63 99 10/17/22 17:05 68 20 108/58 L 99 10/17/22 16:50 70 22 107/60 99 10/17/22 16:10 70 21 116/54 L 99 10/17/22 16:27 37.0 C 70 18 102/53 L 99 10/17/22 15:55 67 19 99/53 L 98 10/17/22 15:50 70 19 98/54 L 98 10/17/22 15:45 73 23 99/50 L 98 10/17/22 15:40 73 20 106/53 L 98 10/17/22 15:35 74 17 100/59 L 98 10/17/22 15:30 73 23 97/54 L 98 10/17/22 15:25 73 19 98/51 L 98 10/17/22 15:20 73 22 100/60 98 10/17/22 15:10 74 20 114/51 L 98 10/17/22 15:05 71 18 104/63 99 10/17/22 15:00 68 19 99/48 L 99 10/17/22 14:40 75 20 98 10/17/22 14:40 101/53 L 10/17/22 14:35 104/58 L 10/17/22 14:35 77 21 99 10/17/22 14:30 74 20 99 10/17/22 14:30 115/56 L 10/17/22 14:25 109/54 L 10/17/22 14:25 77 18 99 10/17/22 14:20 108/61 10/17/22 14:20 78 24 99 10/17/22 14:15 79 20 99 10/17/22 14:15 93/72 L 10/17/22 14:10 95/50 L 10/17/22 14:10 70 20 99 10/17/22 14:05 86/49 L 10/17/22 14:05 73 19 98 10/17/22 14:00 74 20 99 10/17/22 14:00 89/57 L 10/17/22 13:57 77 18 98 10/17/22 13:57 95/51 L 10/17/22 13:56 83 20 98 10/17/22 13:40 76 21 98 10/17/22 13:40 99/53 L 10/17/22 13:35 94/50 L 10/17/22 13:35 81 19 99 10/17/22 13:30 77 23 98 10/17/22 13:30 91/46 L 10/17/22 13:25 88/48 L 10/17/22 13:25 80 22 98 10/17/22 13:22 83 22 98 10/17/22 13:22 98/44 L 10/17/22 13:21 80 18 98 10/17/22 13:21 97/47 L 10/17/22 13:19 89 20 97 10/17/22 13:19 89/51 L 10/17/22 13:17 84 18 90 10/17/22 13:44 98 10/17/22 13:31 88 L 10/17/22 13:31 37.5 C 85 24 96/50 L 94 10/17/22 13:23 85 O2 Del Method O2 Flow Rate 10/17/22 19:09 Nasal Cannula 2 10/17/22 19:04 2 10/17/22 18:55 Nasal Cannula 2 10/17/22 18:50 Nasal Cannula 2 10/17/22 18:40 Nasal Cannula 2 10/17/22 18:30 Nasal Cannula 2 10/17/22 18:20 2 10/17/22 18:15 2 10/17/22 18:10 2 10/17/22 18:05 2 10/17/22 18:04 Nasal Cannula 2 10/17/22 17:35 Nasal Cannula 2 10/17/22 17:30 Nasal Cannula 2 10/17/22 17:27 Nasal Cannula 2 10/17/22 17:15 Nasal Cannula 2 10/17/22 17:05 Nasal Cannula 2 10/17/22 16:50 Nasal Cannula 2 10/17/22 16:10 Nasal Cannula 2 10/17/22 16:27 Nasal Cannula 2 10/17/22 15:55 Nasal Cannula 2 10/17/22 15:50 Nasal Cannula 2 10/17/22 15:45 Nasal Cannula 2 10/17/22 15:40 Nasal Cannula 2 10/17/22 15:35 Nasal Cannula 2 10/17/22 15:30 Nasal Cannula 2 10/17/22 15:25 Nasal Cannula 2 10/17/22 15:20 Nasal Cannula 2 10/17/22 15:10 Nasal Cannula 2 10/17/22 15:05 Nasal Cannula 2 10/17/22 15:00 Nasal Cannula 2 10/17/22 14:40 2 10/17/22 14:40 10/17/22 14:35 10/17/22 14:35 2 10/17/22 14:30 2 10/17/22 14:30 10/17/22 14:25 10/17/22 14:25 2 10/17/22 14:20 10/17/22 14:20 2 10/17/22 14:15 2 10/17/22 14:15 10/17/22 14:10 10/17/22 14:10 2 10/17/22 14:05 10/17/22 14:05 2 10/17/22 14:00 2 10/17/22 14:00 10/17/22 13:57 2 10/17/22 13:57 10/17/22 13:56 2 10/17/22 13:40 2 10/17/22 13:40 10/17/22 13:35 10/17/22 13:35 2 10/17/22 13:30 2 10/17/22 13:30 10/17/22 13:25 10/17/22 13:25 2 10/17/22 13:22 2 10/17/22 13:22 10/17/22 13:21 2 10/17/22 13:21 10/17/22 13:19 2 10/17/22 13:19 10/17/22 13:17 2 10/17/22 13:44 Nasal Cannula 2 10/17/22 13:31 Room Air 10/17/22 13:31 Nasal Cannula 2 10/17/22 13:23 Laboratory Results Short CBC 10/17/22 Range/Units 13:21 WBC 7.88 (4.8-10.8) K/ul Hgb 9.0 L (12.0-16.0) g/dl Hct 26.7 L (37.0-47.0) % Plt Count 113 L (130-400) K/uL BMP 10/17/22 13:21 Sodium 133 L Potassium 3.5 Chloride 97 L Carbon Dioxide 24 BUN 51 H Creatinine 3.06 H Glucose 248 H Calcium 8.0 L Cardiac Enzymes 10/17/22 Range/Units 13:21 Total Creatine Kinase 281 H (26-192) U/L Liver Function 10/17/22 Range/Units 13:21 Total Bilirubin 3.9 H (0.2-1.0) mg/dl Direct Bilirubin 2.8 H (0-0.2) mg/dl AST 383 H (13-39) U/L ALT 416 H (7-52) U/L Alkaline Phosphatase 154 H (34-104) U/L Albumin 3.3 L (3.4-5.0) gm/dl Diagnostic Findings Chest X-Ray 10/17/22 13:31 XR chest 1V portable HISTORY: Sepsis COMPARISON: None. FINDINGS: The heart is enlarged. Rotated study. No pneumothorax. There are low lung volumes. Mild central pulmonary vascular congestion without overt edema. Bibasilar linear densities favor subsegmental atelectasis. IMPRESSION: 1. Mild central pulmonary vascular congestion without overt edema. 2. Cardiomegaly. 3. Low lung volumes with bibasilar linear densities. This favors subsegmental atelectasis. ACT 112: Negative or not required by law. Electronically signed by: Christiano Nieto M.D. 10/17/2022 2:55 PM Abdomen/Pelvis CT 10/17/22 13:[address] WITHOUT CONTRAST CT DOSE: HISTORY: Nausea. Vomiting. Abdominal pain. TECHNIQUE: Multiaxial CT images of the abdomen and pelvis were performed without contrast. A dose lowering technique was utilized adhering to the principles of ALARA. COMPARISON STUDY: None. FINDINGS: Bibasilar densities favor subsegmental atelectasis. No pneumoperitoneum. No pneumatosis. No acute fractures identified. The heart is mildly enlarged. There is a small hiatus hernia. There is a surgical clip within the proximal stomach. Hyperdense material within the proximal stomach favors ingested contents. Cholecystectomy. Hepatic steatosis. The unenhanced spleen, adrenal glands, and pancreas unremarkable. The common bile duct is mildly distended measuring up to 11 mm. Possible 7 mm hyperdense focus at the distal common bile duct on image 140. This raises the possibility of a distal common bile duct stone. Bilateral cortical renal atrophy is noted. No renal or ureteral calculi. No hydronephrosis. No retroperitoneal lymphadenopathy. Calcified plaque within the normal caliber abdominal aorta. Gas within the bladder. No bladder wall thickening. There is a small amount of gas within the vagina. The uterus and ovaries are within normal limits. No pelvic lymphadenopathy or pelvic free fluid. Colonic diverticulosis. No evidence for acute diverticulitis. Calcified nodule within the left lower quadrant adjacent to the proximal sigmoid colon. This is likely benign. No bowel wall thickening or obstruction. Normal appendix. IMPRESSION: 1. No bowel wall thickening or obstruction. 2. Possible 7 mm stone at the distal common bile duct. Correlation with LFTs recommended. Follow-up MRCP or ERCP could also be used for further evaluation. 3. Small hiatus hernia. 4. Colonic diverticulosis. No evidence for acute diverticulitis. 5. Normal appendix. 6. Gas within the bladder. This may be due to prior catheterization. 7. Additional findings as described above. ACT 112: Negative or not required by law. Electronically signed by: Christiano Nieto M.D. 10/17/2022 3:[address] 10/17/22 13:32 CT SCAN OF THE BRAIN WITHOUT IV CONTRAST CLINICAL HISTORY: Vomiting. Change in mental status. COMPARISON STUDY: CT of the brain dated 10/14/2020. TECHNIQUE: Unenhanced axial CT scan of the brain is performed from the vertex to the skull base. A dose lowering technique was utilized adhering to the principles of ALARA. FINDINGS: Brain parenchyma: There is age-related involutional change noting mild subcortical and periventricular microangiopathic disease. There is no hemorrhage, mass effect, or evidence of acute territorial ischemia by CT criteria. Shell-white matter differentiation is preserved. No extra-axial fluid collection is seen. Ventricles, sulci, cisterns: Prominent secondary to involutional change. Intracranial vasculature: There is atherosclerotic calcification of the cavernous carotid and vertebral artery. Calvarium: Unremarkable. Sinuses and mastoids: There is a 1.6 cm retention cyst in the left maxillary antrum. The remaining paranasal sinuses are clear. The mastoid air cells are well pneumatized. Orbits: The bony orbits are grossly intact. There are bilateral ocular lens implants. IMPRESSION: There is no hemorrhage, mass effect, or evidence of acute territorial ischemia by CT criteria. ACT 112: Negative or not required by law. Electronically signed by: Andrew Sanders M.D. 10/17/2022 2:[address] 10/17/22 13:45 CT chest diagnostic wo con CLINICAL HISTORY: abn cxr, ams TECHNIQUE: Multidetector row helical CT of the chest was performed. Coronal and sagittal reformations were obtained. Automated dose lowering techniques and/or adjustment according to patient size were utilized for this exam. CT DOSE: 2837.45 mGy.cm Comparison: Comparison is made to chest radiograph 10/17/2022 FINDINGS: Lungs and pleura: Atelectasis versus scarring is seen in the dependent portions of the lungs. Heart and pericardium: Mitral enlargement is seen. Calcifications are noted. Vessels: Severe atherosclerotic changes in the aorta and coronary arteries. Mediastinum and sara: Unremarkable. Chest wall and lower neck: Unremarkable. Abdomen: For findings below the diaphragm, please refer to CT of the abdomen dated the same. Bones: Degenerative changes in the thoracic spine. IMPRESSION: 1. Atelectasis is seen without evidence of consolidation. 2. Cardiomegaly with biatrial enlargement, mitral annular calcifications are seen. ACT 112: Negative or not required by law. Electronically signed by: Sandro Arora M.D. 10/17/2022 2:11 PM Code Status & VTE Plan Code Status Patient is a full code as per my discussion with her. VTE Prophylaxis Plan VTE Prophylaxis will be ordered: Yes Supervising Physician Co-Signing Physician Notes I have seen and examined the patient and have discussed the case with the provider above. I agree with the assessment and plan as stated . 82-year-old female presenting with 24 hours of nausea vomiting and confusion as well as worsening weakness. Workup reveals evidence of a possible 7 mm stone at the distal common bile duct seen on abdomen pelvis CT without contrast. She has no leukocytosis with anemia present (H&H is 9/26.7), thrombocytopenia with a platelet count of 113 present, hyponatremia with a sodium of 133, evidence of renal disease with no known baseline with a BUN of 51 and creatinine of 3.06, lactate was initially elevated at 2.4 and improved to 1.5 with treatment in the ER. Magnesium is severely low at 1.3. Liver panel is concerning for obstructive process with a total bilirubin of 3.9, direct bilirubin of 2.8, AST of 383 and ALT of 416 with an alk phos of 154. She had a and elevated highly sensitive troponin of 368 which trended up to 436. She denied any chest pain or other ACS symptoms and at the time she was evaluated she was not confused anymore. Head CT was negative for acute intracranial abnormality. Chest imaging was unremarkable. On exam she was alert and oriented with generalized weakness. She was morbidly obese. She was hemodynamically stable and afebrile. She was oxygenating well on 4 L via nasal cannula but was not significantly short of breath and was quickly able to wean down to 94% on room air. Lungs were clear to auscultation throughout. CV exam reveals a 3 out of 6 systolic ejection murmur throughout precordium. Regular rate and rhythm is observed. No significant peripheral edema. Abdomen is soft nontender nondistended. 1. Choledocholithiasis with possible developing infection-continue Zosyn, trend cultures and clinical improvement. GI consult with tentative plan for ERCP in the morning. 2. Acute metabolic encephalopathy-resolved 3. Elevated troponin-suspect demand ischemia in setting of acute illness with possible developing infection. Continue trending troponin overnight. 4. Anemia-unknown baseline, requested records from outside hospital. No active bleeding. Trend CBC in a.m. 5. Other chronic comorbidities high appears stable, continue management as listed above. DO Michael
--- NOTE | 2022-10-17 20:45 | Pharmacy Report ---
Pharmacy Glycemic Short Note 2 - Date of Service October 17, 2022 - Glycemic Short BSG Results (Last 24 hours): 10/17/22 10/17/22 13:21 13:34 Glucose 248 H POC Glucose (other) 262 H OUTPATIENT ANTIDIABETIC REGIMEN: * Levemir 11 units HS, glipizide 2.5 mg daily, victoza ASSESSMENT: * 82 year old, type 2 diabetic - presenting with abdominal pain, vomiting, and confusion. A1c ordered for tomorrow AM. Patient on clears, but changing to NPO for possible ERCP tomorrow AM * Plan to have scale for basal insulin at HS this evening 8-10 units. Will start novolog stress of 2 PLAN FOR INPATIENT GLYCEMIC CONTROL: * Hold outpatient oral diabetes medications * Basal insulin * Lantus 8-10 units HS per scale * Bolus insulin * NovoLog per scale ACHS or Q6hrs while NPO * Goal Range: Low 110 mg/dL - High 140 mg/dL * Correction Factor: 30 mg/dL/unit * Nutritional / Prandial insulin per carb ratio of 1 unit per 10 grams CHO consumed
[2022-10-17] MEDS: INSULIN ASPART PER UNIT CHARGE SC SCH (21:21)
[2022-10-17] MEDS: IRON POLYSACCHARIDE COMPLEX 150 MG CAPSULE PO SCH (21:44)
[2022-10-17] MEDS: GABAPENTIN 400 MG CAP PO SCH (21:44)
[2022-10-17] MEDS: FAMOTIDINE 20 MG TAB PO SCH (21:44)
[2022-10-17] MEDS: LANTUS PER UNIT CHARGE SQ SCH (23:47)
[2022-10-18 04:38] LABS: A calco-baum cmplx NotReported Not Detected (NotDetected); Bact fragilis Not Reported Not Detected (NotDetected); C auris Not Reported Not Detected (NotDetected); CTX-M Resistant Gene Not Detected (NotDetected); Calbicans Not Reported Not Detected (NotDetected); Candida glabrata Not Reported Not Detected (NotDetected); Candida krusei Not Reported Not Detected (NotDetected); Cneoformans/gatti Not Reported Not Detected (NotDetected); Cparapsilosis Not Reported Not Detected (NotDetected); Ctropicalis Not Reported Not Detected (NotDetected); E cloacae compx Not Reported Not Detected (NotDetected); Efaecalis Not Reported Not Detected (NotDetected); Efaecium Not Reported Not Detected (NotDetected); Enterobacterales DETECTED (NotDetected); Enterobacterales Not Reported DETECTED (NotDetected); Escherichia coli Not Reported DETECTED (NotDetected); H influenzae Not Reported Not Detected (NotDetected); IMP Resistant Gene Not Detected (NotDetected); K aerogenes Not Reported Not Detected (NotDetected); KPC Resistant Gene Not Detected (NotDetected); Koxytoca Not Reported Not Detected (NotDetected); Kpneumoniae grp Not Reported Not Detected (NotDetected); Lmonocyt Not Reported Not Detected (NotDetected); N meningitidis Not Reported Not Detected (NotDetected); NDM Resistant Gene Not Detected (NotDetected); OXA 48 Like Resistant Gene Not Detected (NotDetected); P aeruginosa Not Reported Not Detected (NotDetected); Proteus spp Not Reported Not Detected (NotDetected); Salmonella spp Not Reported Not Detected (NotDetected); Smarcescens Not Reported Not Detected (NotDetected); Staph lugdunensis Not Reported Not Detected (NotDetected); Staph spp. Not Reported Not Detected (NotDetected); Staphaureus Not Reported Not Detected (NotDetected); Staphepi Not Reported Not Detected (NotDetected); Stenmaltophilia Not Reported Not Detected (NotDetected); Strep agal(GrpB) Not Reported Not Detected (NotDetected); Strep pneum Not Reported Not Detected (NotDetected); Strep pyog (GrpA) Not Reported Not Detected (NotDetected); Strep spp Not Reported Not Detected (NotDetected); VIM Resistant Gene Not Detected (NotDetected); mcr-1 Colistin Resistant Gene Not Detected (NotDetected)
[2022-10-18] MEDS: PIPERACILLIN/TAZOBACTAM 4.5 GM in DEXTROSE 5% 100 ML IV SCH ×2 (05:08→16:53)
[2022-10-18] MEDS: LEVOTHYROXINE SODIUM 50 MCG TABLET PO SCH (06:59)
[2022-10-18 07:11] LABS: Hematocrit (blood only) 24.7 % (37.0-47.0); Hemoglobin 8.2 g/dl (12.0-16.0); Mean Corpuscular Hemoglobin 30.6 pg (25.0-34.0); Mean Corpuscular Hgb Conc 33.2 g/dL (32.0-36.0); Mean Corpuscular Volume 92.2 fL (80.0-100.0); Mean Platelet Volume 9.8 fL (9.4-12.4); Platelet Count 100 K/uL (130-400); RDW Standard Deviation 47.1 fL (36.4-46.3); Red Blood Count 2.68 M/uL (4.20-5.40)
[2022-10-18 07:13] LABS: Albumin Level 2.8 gm/dl (3.4-5.0); BUN Creatinine Ratio 17.2 (10-20); Bilirubin,Total 3.2 mg/dl (0.2-1.0); Calcium 7.6 mg/dl (8.6-10.3); Creatinine Clr Calc Pharmacy 14.5 ml/min; Est GFR (African American) 15.7 ml/min; Est GFR (Non-African American) 13.6 ml/min; Globulin 2.8 gm/dl (2.5-4.0); Magnesium 1.9 mg/dl (1.7-2.4); Potassium 3.8 mmol/L (3.5-5.1); Total Protein 5.6 gm/dl (6.0-8.3)
--- NOTE | 2022-10-18 08:10 | Cardiology Consultation ---
Date of Consultation October 18, 2022 Assessment & Plan (1) Acute metabolic encephalopathy: (2) Choledocholithiasis: (3) Elevated troponin: (4) Prolonged QT interval: Plan 82-year-old female with known moderate aortic stenosis and stage IV CKD. Admitted for Choledocholithiasis with plans for ERCP. Peak high-sensitivity troponin of 436 and trending downward. Likely in the setting of demand ischemia/NSTEMI. EKG without ischemic changes but QTc prolonged at 525 ms Patient well compensated from a cardiac standpoint upon exam. She is currently chest pain-free with no evidence of hypervolemia Patient at moderate but acceptable risk to proceed with ERCP. Consider outpatient nuclear stress testing however given renal dysfunction patient may be a poor candidate for cardiac catheterization. Continue medical management with aspirin. Not currently on statin due to abnormal LFTs. Avoid QTc prolonging medications-repeat EKG to reassess Please refer to physician addendum for further information as per plan of care. Supervising Physician Co-Signing Physician Notes Attending Staff Pt seen and evaluated with [facility] staff; concur with evaluation and plan 82 yo woman presenting with confusion, abdominal pain and emesis Dx: Choledocholithiasis + Demand Ischemia/NSTEMI Tn peak 436 - trending down QTC - 525 CT Scan 10/17/2022: S/P Lab Cholecystectomy 7 mm stone in CBD Rx with: IV Fluids ABX Cardiac HX: Moderate HTN DMII CKD Stage 4 Anemia Hyperlipidemia Plans: Troponin elevation appears consistent with demand ischemia in the setting of significant physical stress related to CBD stone. Pt was functional prior to this presentation There is no evidence that patient had progressive angina, decompensated CHF or unstable arrhythmias leading up to presentation. No further testing suggested at this time in anticipation of removal of CBD stone Pt may benefit from outpt Pharmacologic Stress Testing Check 12-lead EKG ECHO on 10/18/2022 with normal LV function and Moderate Cautious with either aggressive volume repletion or depletion Continue ASA 81 mg po per day As LFTs improve, would consider starting Crestor 20 mg po per day Check LDL SBP @ goal HBA1c - 6.1 Jhonny Guajardo History of Present Illness Reason for Consultation: Elevated troponin Preop Requesting Physician: [facility] Attending Physician: Larry Alonzo MD History of Present Illness 82-year-old female who initially presented to [facility] emergency department due to abdominal pain and vomiting. Patient was confused and was having generalized weakness. CT ABD/pelvis shows 7 mm stone in the common bile duct. Patient was given IV cefepime, IV Protonix, IVF. Noted prior history of laparoscopic cholecystectomy in 2020. Lactate was initially elevated to 2.4, lowered to 1.5. Cardiac workup showed EKG without acute ST segment changes however QTc was prolonged at 525 ms. High-sensitivity troponin 368.7>>436.5>>398.9. CT of the chest showed coronary artery calcifications. Patient has known moderate aortic valve stenosis per echo 01/2022, echo this admission pending. Lisinopril held due to hypotension as well as renal function. Past medical history: Hypertension Aortic valve stenosis Dyslipidemia Type 2 diabetes CKD stage IV Multifactorial anemia/anemia of chronic disease and iron deficiency Allergies Allergy/AdvReac Type Severity Reaction Status Date / Time sulfamethoxazole Allergy unknown Unverified 10/14/20 14:58 [From Bactrim] reaction trimethoprim [From Bactrim] Allergy unknown Unverified 10/14/20 14:58 reaction Home Medications Medication Instructions Recorded Confirmed Type aspirin 81 mg tablet,delayed 81 mg PO DAILY 10/14/20 10/17/22 History release (Alberto Low Dose Aspirin) atorvastatin 40 mg tablet 40 mg PO QPM 10/14/20 10/17/22 History cholecalciferol (vitamin D3) 125 125 mcg PO DAILY 10/14/20 10/17/22 History mcg (5,000 unit) capsule docusate sodium 100 mg capsule 100 mg PO BID PRN Other 10/14/20 10/17/22 History famotidine 20 mg tablet 20 mg PO BID 10/14/20 10/17/22 History furosemide 40 mg tablet 40 mg PO DAILY 10/14/20 10/17/22 History gabapentin 400 mg capsule 400 mg PO BID 10/14/20 10/17/22 History insulin detemir U-100 100 unit/mL 11 unit subcut HS 10/14/20 10/17/22 History (3 mL) subcutaneous pen (Levemir FlexTouch U-100 Insulin) levothyroxine 50 mcg tablet 50 mcg PO DAILY 10/14/20 10/17/22 History liraglutide 0.6 mg/0.1 mL (18 mg/3 1.8 mg subcut QAM 10/14/20 10/17/22 History mL) subcutaneous pen injector (Victoza 3-George) sodium bicarbonate 650 mg tablet 650 mg PO BID PRN Other 10/14/20 10/17/22 History calcitriol 0.25 mcg capsule 0.25 mcg PO DAILY 10/17/22 10/17/22 History diclofenac sodium 1 % topical gel See Rx Instructions .Route 10/17/22 10/17/22 History .COMPLEX PRN Other ezetimibe 10 mg tablet 10 mg PO DAILY 10/17/22 10/17/22 History glipizide 2.5 mg tablet, extended 2.5 mg PO DAILY 10/17/22 10/17/22 History release 24 hr lisinopril 20 mg tablet 20 mg PO DAILY 10/17/22 10/17/22 History loratadine 10 mg tablet (Allergy 10 mg PO DAILY 10/17/22 10/17/22 History Relief (loratadine)) polysaccharide iron complex 150 mg 150 mg PO BID 10/17/22 10/17/22 History iron capsule (iFerex 150) Patient History Medical History (Updated 10/17/22 @ 20:16 by DIVINE Jones) Anemia CKD (chronic kidney disease), stage IV DM type 2 (diabetes mellitus, type 2) HLD (hyperlipidemia) HTN (hypertension) Moderate aortic stenosis Postsurgical hypothyroidism Surgical History History of cholecystectomy History of thyroidectomy Social History Smoking Status: Never smoker Second Hand Exposure: No; Do You Dip or Chew Tobacco: No; Tobacco Cessation Education Requested by Patient: No Hx Alcohol Use: No Hx Substance Use: No Preferred Language: Kazakh Communication Ability: Effective Hand Salter Required: No Beliefs That Will Affect Care: None Current Living Situation: Alone Current Living Situation Comment: patient lives in senior community apartment building Other Information That Helps Us Care for You: Yes (particular about foods; please give options) Feels Safe at Home: Yes Safety Concerns: Feels Safe At This Time Assistive Devices: Denture - Upper, Denture - Lower, Glasses and Walker Review of Systems Review of Systems: All systems reviewed & are unremarkable except as noted in HPI & below Physical Exam Physical Exam: Pt in NAD JVP @ base of neck S1S2 2/6 systolic murmur CTA B + Obese abdomen; + BS - soft No C/C/E Warm and perfusing Results & Data Vital Signs (Past 12 Hours) Vital Signs Temp Pulse Resp BP BP Pulse Ox O2 Del Method 10/18/22 07:53 36.5 C 65 19 106/63 98 Nasal Cannula 10/18/22 04:12 36.8 C 63 20 120/68 98 Nasal Cannula 10/17/22 23:43 36.4 C L 61 20 102/61 93 Room Air O2 Flow Rate 10/18/22 07:53 2.0 10/18/22 04:12 2 10/17/22 23:43 Laboratory Results Cardiac Enzymes 10/17/22 10/17/22 10/18/22 Range/Units 13:21 20:02 00:41 AST 383 H (13-39) U/L Troponin I High Sens 368.7 H* 436.5 H* 398.9 H* (0-14) pg/ml 10/18/22 Range/Units 06:21 AST 227 H (13-39) U/L Troponin I High Sens (0-14) pg/ml CBC 10/17/22 10/18/22 Range/Units 13:21 06:21 WBC 7.88 5.70 (4.8-10.8) K/ul RBC 2.92 L 2.68 L (4.20-5.40) M/uL Hgb 9.0 L 8.2 L (12.0-16.0) g/dl Hct 26.7 L 24.7 L (37.0-47.0) % Plt Count 113 L 100 L (130-400) K/uL Neut # (Auto) 6.93 H (1.40-6.50) K/uL Lymph # (Auto) 0.39 L (1.2-3.4) K/uL Cecil # (Auto) 0.38 (0.11-0.59) K/uL Eos # (Auto) 0.00 (0-0.50) K/uL Baso # (Auto) 0.01 (0-0.2) K/uL Comprehensive Metabolic Panel 10/17/22 10/18/22 Range/Units 13:21 06:21 Sodium 133 L 134 L (136-145) mmol/L Potassium 3.5 3.8 (3.5-5.1) mmol/L Chloride 97 L 98 (98-107) mmol/L Carbon Dioxide 24 26 (21-32) mmol/L BUN 51 H 52 H (6-23) mg/dl Creatinine 3.06 H 3.02 H (0.6-1.2) mg/dl Glucose 248 H 208 H (70-99(Fasting)) mg/dl Calcium 8.0 L 7.6 L (8.6-10.3) mg/dl Direct Bilirubin 2.8 H (0-0.2) mg/dl AST 383 H 227 H (13-39) U/L ALT 416 H 307 H (7-52) U/L Alkaline Phosphatase 154 H 101 (34-104) U/L Total Protein 6.2 5.6 L (6.0-8.3) gm/dl Albumin 3.3 L 2.8 L (3.4-5.0) gm/dl Intake and Output 10/17/22 10/18/22 10/18/22 22:59 06:59 14:59 Intake Total 1875 / 3995 120 / 3995 Balance 1875 / 3995 120 / 3995 Intake: IV 1875 / 3995 120 / 3995 Lactated Ringer's 1,000 ml @ 675 / 675 125 mls/hr IV .Q8H ASH Rx#: [id number] Magnesium Sulfate / D5w 1 gm In 200 / 200 100 ml @ 100 mls/hr IV Q1H ASH Rx#:[id number] Piperacillin/Tazobactam 4.5 gm 120 / 120 In Dextrose 5% 100 ml @ 240 mls /hr IV ONE ONE Rx#:[id number] Sodium Chloride 0.9% 1000ML 1, 1000 / 1000 000 ml @ 999 mls/hr IV .Q1H1M ONE Rx#:[id number] Oral 0 / 0 Other: # Unmeasured Voids 1 Weight 90.5 kg Weight Measurement Method Built in [facility] Diagnostic Findings ECHOcardiogram - 10/18/2022 LVEF 55-60% No WMA Moderate Grade II Diastolic Dysfunction TR - mild Mild PH
[2022-10-18 08:23] LABS: Estimated Average Glucose 128 mg/dl; Hemoglobin A1C 6.1 % (4.5-5.6)
[2022-10-18] MEDS: IRON POLYSACCHARIDE COMPLEX 150 MG CAPSULE PO SCH ×2 (08:58→21:03)
[2022-10-18] MEDS: GABAPENTIN 400 MG CAP PO SCH ×2 (08:58→21:03)
[2022-10-18] MEDS: FAMOTIDINE 20 MG TAB PO SCH ×2 (08:58→21:03)
[2022-10-18] MEDS: CALCITRIOL 0.25 MCG CAPSULE PO SCH (08:59)
[2022-10-18] MEDS: ASPIRIN 81 MG ECTAB PO SCH (08:59)
[2022-10-18] MEDS: INSULIN ASPART PER UNIT CHARGE SC SCH ×4 (08:59→21:03)
--- NOTE | 2022-10-18 09:34 | Gastrointestinal Consultation ---
Date of Consultation October 18, 2022 Assessment & Plan (1) Abnormal LFTs: 82 year old T2DM, HTN, CKD-IV, anemia, dyslipidemia admitted with hypotension, abd pain, nausea/vomiting, elevated LFTs, imaging concerning for CBD stone and now positive blood cultures growing gram negative bacilli NPO ERCP today Needs ABX with biliary coverage Cardiology clearance for ERCP given elevated troponin Trend LFTs We appreciate assistance in the management of any serological abnormality and corrections to include: hemoglobin >7, INR <2, platelets >50,000, potassium levels >3.5 but <5.3, and sodium levels within 5 points of the reference range prior to endoscopic evaluation. Thank you for allowing us to participate in the care of this patient. Please call with any acute changes, questions or concerns. Please see addendum below with additional recommendation from my supervising physician. Supervising Physician Co-Signing Physician Notes Attending attestation I have seen, examined this patient, and agree with the findings and above by our mid-level provider DIVINE Jack, with the following additions: Presentation of biliary obstruction Plan for ERCP History of Present Illness Reason for Consultation: abd pain, ERCP Requesting Physician: Clinton Attending Physician: Larry Alonzo MD History of Present Illness 82 year old female with history of T2DM, HTN, CKD-IV, anemia, dyslipidemia and others below admitted through the ED with hypotension, abd pain, nausea/vomiting - concerning for retained biliary stones. Pt was seen and evaluated, chart reviewed. Notes she has had episodic abd pain for about a week or so. She has had intermittent nausea and vomiting with this and some chills at home. No lightheadedness, dizziness, CP or SOB reported. In the ED, HS troponin 368, procalcitonin > 200 and elevated transaminases, CT shows 7 mm stone in the common bile duct.She was started on IV cefepime. Blood cultures growing gram negative bacilli. CTAP 2022: No bowel wall thickening or obstruction.Possible 7 mm stone at the distal common bile duct. Correlation with LFTs recommended. Follow-up MRCP or ERCP could also be used for further evaluation.Small hiatus hernia. Colonic diverticulosis. No evidence for acute diverticulitis. Normal appendix.Gas within the bladder. This may be due to prior catheterization.Additional findings as described above. Allergies Allergy/AdvReac Type Severity Reaction Status Date / Time sulfamethoxazole Allergy unknown Unverified 10/14/20 14:58 [From Bactrim] reaction trimethoprim [From Bactrim] Allergy unknown Unverified 10/14/20 14:58 reaction Home Medications Medication Instructions Recorded Confirmed Type aspirin 81 mg tablet,delayed 81 mg PO DAILY 10/14/20 10/17/22 History release (Alberto Low Dose Aspirin) atorvastatin 40 mg tablet 40 mg PO QPM 10/14/20 10/17/22 History cholecalciferol (vitamin D3) 125 125 mcg PO DAILY 10/14/20 10/17/22 History mcg (5,000 unit) capsule docusate sodium 100 mg capsule 100 mg PO BID PRN Other 10/14/20 10/17/22 History famotidine 20 mg tablet 20 mg PO BID 10/14/20 10/17/22 History furosemide 40 mg tablet 40 mg PO DAILY 10/14/20 10/17/22 History gabapentin 400 mg capsule 400 mg PO BID 10/14/20 10/17/22 History insulin detemir U-100 100 unit/mL 11 unit subcut HS 10/14/20 10/17/22 History (3 mL) subcutaneous pen (Levemir FlexTouch U-100 Insulin) levothyroxine 50 mcg tablet 50 mcg PO DAILY 10/14/20 10/17/22 History liraglutide 0.6 mg/0.1 mL (18 mg/3 1.8 mg subcut QAM 10/14/20 10/17/22 History mL) subcutaneous pen injector (Victoza 3-George) sodium bicarbonate 650 mg tablet 650 mg PO BID PRN Other 10/14/20 10/17/22 History calcitriol 0.25 mcg capsule 0.25 mcg PO DAILY 10/17/22 10/17/22 History diclofenac sodium 1 % topical gel See Rx Instructions .Route 10/17/22 10/17/22 History .COMPLEX PRN Other ezetimibe 10 mg tablet 10 mg PO DAILY 10/17/22 10/17/22 History glipizide 2.5 mg tablet, extended 2.5 mg PO DAILY 10/17/22 10/17/22 History release 24 hr lisinopril 20 mg tablet 20 mg PO DAILY 10/17/22 10/17/22 History loratadine 10 mg tablet (Allergy 10 mg PO DAILY 10/17/22 10/17/22 History Relief (loratadine)) polysaccharide iron complex 150 mg 150 mg PO BID 10/17/22 10/17/22 History iron capsule (iFerex 150) Patient History Medical History (Updated 10/18/22 @ 13:31 by Greg Corbin MD) Abnormal LFTs Acute metabolic encephalopathy Anemia Choledocholithiasis CKD (chronic kidney disease), stage IV DM type 2 (diabetes mellitus, type 2) Elevated troponin Encounter for pre-operative examination HLD (hyperlipidemia) HTN (hypertension) Moderate aortic stenosis Postsurgical hypothyroidism Prolonged QT interval Surgical History History of cholecystectomy History of thyroidectomy Social History Smoking Status: Never smoker Second Hand Exposure: No; Do You Dip or Chew Tobacco: No; Tobacco Cessation Education Requested by Patient: No Hx Alcohol Use: No Hx Substance Use: No Preferred Language: Estonian Communication Ability: Effective 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 Beliefs That Will Affect Care: None Current Living Situation: Alone Current Living Situation Comment: patient lives in [facility] apartment building Other Information That Helps Us Care for You: Yes (particular about foods; please give options) Feels Safe at Home: Yes Safety Concerns: Feels Safe At This Time Assistive Devices: Walker Review of Systems Review of Systems: All systems reviewed & are unremarkable except as noted in HPI & below Physical Exam Respiratory: normal respiratory effort, lungs clear to auscultation Cardiovascular: Rate/Rhythm: regular rate and regular rhythm Gastrointestinal (Abdomen): Inspection/Auscultation: normal bowel sounds Percussion/Palpation: + abdomen tender and abdomen soft; no guarding and abdomen not rigid Skin: no rashes, warm and dry Results & Data Vital Signs (Past 12 Hours) Vital Signs Temp Pulse Resp BP BP Pulse Ox O2 Del Method 10/18/22 07:53 36.5 C 65 19 106/63 98 Nasal Cannula 10/18/22 04:12 36.8 C 63 20 120/68 98 Nasal Cannula 10/17/22 23:43 36.4 C L 61 20 102/61 93 Room Air O2 Flow Rate 10/18/22 07:53 2.0 10/18/22 04:12 2 10/17/22 23:43 Laboratory Results 10/18/22 10/18/22 10/18/22 Range/Units 07:48 06:21 06:21 WBC (4.8-10.8) K/ul RBC (4.20-5.40) M/uL Hgb (12.0-16.0) g/dl POC Hgb (12.0-16.0) g/dl Hct (37.0-47.0) % POC Hct (37-47) % MCV (80.0-100.0) fL MCH (25.0-34.0) pg MCHC (32.0-36.0) g/dL RDW Std Deviation (36.4-46.3) fL RDW Coeff of Aysha (11.5-14.5) % Plt Count (130-400) K/uL MPV (9.4-12.4) fL Immature Gran % (Auto) % Neut % (Auto) % Lymph % (Auto) % [place] % (Auto) % Eos % (Auto) % Baso % (Auto) % Neut # (Auto) (1.40-6.50) K/uL Lymph # (Auto) (1.2-3.4) K/uL [place] # (Auto) (0.11-0.59) K/uL Eos # (Auto) (0-0.50) K/uL Baso # (Auto) (0-0.2) K/uL Immature Gran # (Auto) (0.01-0.20) K/uL Dohle Bodies VBG pH (7.36-7.41) VBG pCO2 (38-50) mmHg VBG pO2 mmHg VBG HCO3 mmol/L VBG O2 Saturation % VBG Base Excess mEq/L POC Sodium (135-144) mmol/L Sodium 134 L (136-145) mmol/L POC Potassium (3.3-5.0) mmol/L Potassium 3.8 (3.5-5.1) mmol/L POC Chloride (101-112) mmol/L Chloride 98 (98-107) mmol/L Carbon Dioxide 26 (21-32) mmol/L POC Total CO2 (24-31) mmol/L Anion Gap 10 (3-11) POC Anion Gap (16-25) mmol/L POC BUN (7-18) mg/dl BUN 52 H (6-23) mg/dl Creatinine 3.02 H (0.6-1.2) mg/dl POC Creatinine (0.6-1.3) mg/dl Est Cr Clr Drug Dosing 14.5 ml/min Est GFR ( Amer) 15.7 ml/min Est GFR (Non-Af Amer) 13.6 ml/min BUN/Creatinine Ratio 17.2 (10-20) Glucose 208 H (70-99(Fasting)) mg/dl POC Glucose 145 H (70-99) mg/dl POC Glucose (other) (70-99) mg/dl Estimat Average Glucose 128 mg/dl Hemoglobin A1c 6.1 H (4.5-5.6) % Lactate (0.4-2.0) mmol/L Calcium 7.6 L (8.6-10.3) mg/dl POC Ioniz Calcium Art (1.12-1.32) mmol/l Magnesium 1.9 (1.7-2.4) mg/dl Total Bilirubin 3.2 H (0.2-1.0) mg/dl Direct Bilirubin (0-0.2) mg/dl AST 227 H (13-39) U/L ALT 307 H (7-52) U/L Alkaline Phosphatase 101 (34-104) U/L Total Creatine Kinase (26-192) U/L Troponin I High Sens (0-14) pg/ml Total Protein 5.6 L (6.0-8.3) gm/dl Albumin 2.8 L (3.4-5.0) gm/dl Globulin 2.8 (2.5-4.0) gm/dl Albumin/Globulin Ratio 1.0 (0.9-2) Procalcitonin (0-0.5) ng/ml Enterobacterales (PCR) (NotDetected) E. coli (PCR) (NotDetected) SARS-CoV-2, RNA, NAAT (NEGATIVE) mcr-1 Colistin Res Gene PCR (NotDetected) blaIMP Car res Gene PCR (NotDetected) KPC-Carbap Res Gene PCR (NotDetected) blaNDM Car Res Gene PCR (NotDetected) OXA-48 Carbapenem Resis Gene (PCR) (NotDetected) blaVIM Car Res Gene PCR (NotDetected) CTX-M Gene Resistance (PCR) (NotDetected) Bld Cult ID Panel PCR (NotDetected) Blood Type Antibody Screen Antibody Identification Antibody ID Comment 10/18/22 10/18/22 10/17/22 Range/Units 06:21 00:41 20:51 WBC 5.70 (4.8-10.8) K/ul RBC 2.68 L (4.20-5.40) M/uL Hgb 8.2 L (12.0-16.0) g/dl POC Hgb (12.0-16.0) g/dl Hct 24.7 L (37.0-47.0) % POC Hct (37-47) % MCV 92.2 (80.0-100.0) fL MCH 30.6 (25.0-34.0) pg MCHC 33.2 (32.0-36.0) g/dL RDW Std Deviation 47.1 H (36.4-46.3) fL RDW Coeff of Aysha 14.0 (11.5-14.5) % Plt Count 100 L (130-400) K/uL MPV 9.8 (9.4-12.4) fL Immature Gran % (Auto) % Neut % (Auto) % Lymph % (Auto) % [place] % (Auto) % Eos % (Auto) % Baso % (Auto) % Neut # (Auto) (1.40-6.50) K/uL Lymph # (Auto) (1.2-3.4) K/uL [place] # (Auto) (0.11-0.59) K/uL Eos # (Auto) (0-0.50) K/uL Baso # (Auto) (0-0.2) K/uL Immature Gran # (Auto) (0.01-0.20) K/uL Dohle Bodies VBG pH (7.36-7.41) VBG pCO2 (38-50) mmHg VBG pO2 mmHg VBG HCO3 mmol/L VBG O2 Saturation % VBG Base Excess mEq/L POC Sodium (135-144) mmol/L Sodium (136-145) mmol/L POC Potassium (3.3-5.0) mmol/L Potassium (3.5-5.1) mmol/L POC Chloride (101-112) mmol/L Chloride (98-107) mmol/L Carbon Dioxide (21-32) mmol/L POC Total CO2 (24-31) mmol/L Anion Gap (3-11) POC Anion Gap (16-25) mmol/L POC BUN (7-18) mg/dl BUN (6-23) mg/dl Creatinine (0.6-1.2) mg/dl POC Creatinine (0.6-1.3) mg/dl Est Cr Clr Drug Dosing ml/min Est GFR ( Amer) ml/min Est GFR (Non-Af Amer) ml/min BUN/Creatinine Ratio (10-20) Glucose (70-99(Fasting)) mg/dl POC Glucose 267 H (70-99) mg/dl POC Glucose (other) (70-99) mg/dl Estimat Average Glucose mg/dl Hemoglobin A1c (4.5-5.6) % Lactate (0.4-2.0) mmol/L Calcium (8.6-10.3) mg/dl POC Ioniz Calcium Art (1.12-1.32) mmol/l Magnesium (1.7-2.4) mg/dl Total Bilirubin (0.2-1.0) mg/dl Direct Bilirubin (0-0.2) mg/dl AST (13-39) U/L ALT (7-52) U/L Alkaline Phosphatase (34-104) U/L Total Creatine Kinase (26-192) U/L Troponin I High Sens 398.9 H* (0-14) pg/ml Total Protein (6.0-8.3) gm/dl Albumin (3.4-5.0) gm/dl Globulin (2.5-4.0) gm/dl Albumin/Globulin Ratio (0.9-2) Procalcitonin (0-0.5) ng/ml Enterobacterales (PCR) (NotDetected) E. coli (PCR) (NotDetected) SARS-CoV-2, RNA, NAAT (NEGATIVE) mcr-1 Colistin Res Gene PCR (NotDetected) blaIMP Car res Gene PCR (NotDetected) KPC-Carbap Res Gene PCR (NotDetected) blaNDM Car Res Gene PCR (NotDetected) OXA-48 Carbapenem Resis Gene (PCR) (NotDetected) blaVIM Car Res Gene PCR (NotDetected) CTX-M Gene Resistance (PCR) (NotDetected) Bld Cult ID Panel PCR (NotDetected) Blood Type Antibody Screen Antibody Identification Antibody ID Comment 10/17/22 10/17/22 10/17/22 Range/Units 20:02 17:41 16:14 WBC (4.8-10.8) K/ul RBC (4.20-5.40) M/uL Hgb (12.0-16.0) g/dl POC Hgb (12.0-16.0) g/dl Hct (37.0-47.0) % POC Hct (37-47) % MCV (80.0-100.0) fL MCH (25.0-34.0) pg MCHC (32.0-36.0) g/dL RDW Std Deviation (36.4-46.3) fL RDW Coeff of Aysha (11.5-14.5) % Plt Count (130-400) K/uL MPV (9.4-12.4) fL Immature Gran % (Auto) % Neut % (Auto) % Lymph % (Auto) % [place] % (Auto) % Eos % (Auto) % Baso % (Auto) % Neut # (Auto) (1.40-6.50) K/uL Lymph # (Auto) (1.2-3.4) K/uL [place] # (Auto) (0.11-0.59) K/uL Eos # (Auto) (0-0.50) K/uL Baso # (Auto) (0-0.2) K/uL Immature Gran # (Auto) (0.01-0.20) K/uL Dohle Bodies VBG pH (7.36-7.41) VBG pCO2 (38-50) mmHg VBG pO2 mmHg VBG HCO3 mmol/L VBG O2 Saturation % VBG Base Excess mEq/L POC Sodium (135-144) mmol/L Sodium (136-145) mmol/L POC Potassium (3.3-5.0) mmol/L Potassium (3.5-5.1) mmol/L POC Chloride (101-112) mmol/L Chloride (98-107) mmol/L Carbon Dioxide (21-32) mmol/L POC Total CO2 (24-31) mmol/L Anion Gap (3-11) POC Anion Gap (16-25) mmol/L POC BUN (7-18) mg/dl BUN (6-23) mg/dl Creatinine (0.6-1.2) mg/dl POC Creatinine (0.6-1.3) mg/dl Est Cr Clr Drug Dosing ml/min Est GFR ( Amer) ml/min Est GFR (Non-Af Amer) ml/min BUN/Creatinine Ratio (10-20) Glucose (70-99(Fasting)) mg/dl POC Glucose (70-99) mg/dl POC Glucose (other) (70-99) mg/dl Estimat Average Glucose mg/dl Hemoglobin A1c (4.5-5.6) % Lactate 1.5 (0.4-2.0) mmol/L Calcium (8.6-10.3) mg/dl POC Ioniz Calcium Art (1.12-1.32) mmol/l Magnesium (1.7-2.4) mg/dl Total Bilirubin (0.2-1.0) mg/dl Direct Bilirubin (0-0.2) mg/dl AST (13-39) U/L ALT (7-52) U/L Alkaline Phosphatase (34-104) U/L Total Creatine Kinase (26-192) U/L Troponin I High Sens 436.5 H* (0-14) pg/ml Total Protein (6.0-8.3) gm/dl Albumin (3.4-5.0) gm/dl Globulin (2.5-4.0) gm/dl Albumin/Globulin Ratio (0.9-2) Procalcitonin (0-0.5) ng/ml Enterobacterales (PCR) (NotDetected) E. coli (PCR) (NotDetected) SARS-CoV-2, RNA, NAAT NEGATIVE (NEGATIVE) mcr-1 Colistin Res Gene PCR (NotDetected) blaIMP Car res Gene PCR (NotDetected) KPC-Carbap Res Gene PCR (NotDetected) blaNDM Car Res Gene PCR (NotDetected) OXA-48 Carbapenem Resis Gene (PCR) (NotDetected) blaVIM Car Res Gene PCR (NotDetected) CTX-M Gene Resistance (PCR) (NotDetected) Bld Cult ID Panel PCR (NotDetected) Blood Type Antibody Screen Antibody Identification Antibody ID Comment 10/17/22 10/17/22 10/17/22 Range/Units 15:19 14:00 13:34 WBC (4.8-10.8) K/ul RBC (4.20-5.40) M/uL Hgb (12.0-16.0) g/dl POC Hgb 8.8 L (12.0-16.0) g/dl Hct (37.0-47.0) % POC Hct 26 L (37-47) % MCV (80.0-100.0) fL MCH (25.0-34.0) pg MCHC (32.0-36.0) g/dL RDW Std Deviation (36.4-46.3) fL RDW Coeff of Aysha (11.5-14.5) % Plt Count (130-400) K/uL MPV (9.4-12.4) fL Immature Gran % (Auto) % Neut % (Auto) % Lymph % (Auto) % [place] % (Auto) % Eos % (Auto) % Baso % (Auto) % Neut # (Auto) (1.40-6.50) K/uL Lymph # (Auto) (1.2-3.4) K/uL [place] # (Auto) (0.11-0.59) K/uL Eos # (Auto) (0-0.50) K/uL Baso # (Auto) (0-0.2) K/uL Immature Gran # (Auto) (0.01-0.20) K/uL Dohle Bodies VBG pH 7.39 (7.36-7.41) VBG pCO2 37 L (38-50) mmHg VBG pO2 60 mmHg VBG HCO3 22 mmol/L VBG O2 Saturation 92.4 % VBG Base Excess -2.2 mEq/L POC Sodium 133 L (135-144) mmol/L Sodium (136-145) mmol/L POC Potassium 3.4 (3.3-5.0) mmol/L Potassium (3.5-5.1) mmol/L POC Chloride 95 L (101-112) mmol/L Chloride (98-107) mmol/L Carbon Dioxide (21-32) mmol/L POC Total CO2 22 L (24-31) mmol/L Anion Gap (3-11) POC Anion Gap 20.0 (16-25) mmol/L POC BUN 45 H (7-18) mg/dl BUN (6-23) mg/dl Creatinine (0.6-1.2) mg/dl POC Creatinine 3.4 H (0.6-1.3) mg/dl Est Cr Clr Drug Dosing ml/min Est GFR ( Amer) ml/min Est GFR (Non-Af Amer) ml/min BUN/Creatinine Ratio (10-20) Glucose (70-99(Fasting)) mg/dl POC Glucose (70-99) mg/dl POC Glucose (other) 262 H (70-99) mg/dl Estimat Average Glucose mg/dl Hemoglobin A1c (4.5-5.6) % Lactate (0.4-2.0) mmol/L Calcium (8.6-10.3) mg/dl POC Ioniz Calcium Art 1.00 L (1.12-1.32) mmol/l Magnesium (1.7-2.4) mg/dl Total Bilirubin (0.2-1.0) mg/dl Direct Bilirubin (0-0.2) mg/dl AST (13-39) U/L ALT (7-52) U/L Alkaline Phosphatase (34-104) U/L Total Creatine Kinase (26-192) U/L Troponin I High Sens (0-14) pg/ml Total Protein (6.0-8.3) gm/dl Albumin (3.4-5.0) gm/dl Globulin (2.5-4.0) gm/dl Albumin/Globulin Ratio (0.9-2) Procalcitonin (0-0.5) ng/ml Enterobacterales (PCR) (NotDetected) E. coli (PCR) (NotDetected) SARS-CoV-2, RNA, NAAT (NEGATIVE) mcr-1 Colistin Res Gene PCR (NotDetected) blaIMP Car res Gene PCR (NotDetected) KPC-Carbap Res Gene PCR (NotDetected) blaNDM Car Res Gene PCR (NotDetected) OXA-48 Carbapenem Resis Gene (PCR) (NotDetected) blaVIM Car Res Gene PCR (NotDetected) CTX-M Gene Resistance (PCR) (NotDetected) Bld Cult ID Panel PCR (NotDetected) Blood Type O Negative Antibody Screen POSITIVE A Antibody Identification Anti-E Antibody ID Comment Pending 10/17/22 10/17/22 10/17/22 Range/Units 13:30 13:21 13:21 WBC (4.8-10.8) K/ul RBC (4.20-5.40) M/uL Hgb (12.0-16.0) g/dl POC Hgb (12.0-16.0) g/dl Hct (37.0-47.0) % POC Hct (37-47) % MCV (80.0-100.0) fL MCH (25.0-34.0) pg MCHC (32.0-36.0) g/dL RDW Std Deviation (36.4-46.3) fL RDW Coeff of Aysha (11.5-14.5) % Plt Count (130-400) K/uL MPV (9.4-12.4) fL Immature Gran % (Auto) % Neut % (Auto) % Lymph % (Auto) % [place] % (Auto) % Eos % (Auto) % Baso % (Auto) % Neut # (Auto) (1.40-6.50) K/uL Lymph # (Auto) (1.2-3.4) K/uL [place] # (Auto) (0.11-0.59) K/uL Eos # (Auto) (0-0.50) K/uL Baso # (Auto) (0-0.2) K/uL Immature Gran # (Auto) (0.01-0.20) K/uL Dohle Bodies VBG pH (7.36-7.41) VBG pCO2 (38-50) mmHg VBG pO2 mmHg VBG HCO3 mmol/L VBG O2 Saturation % VBG Base Excess mEq/L POC Sodium (135-144) mmol/L Sodium (136-145) mmol/L POC Potassium (3.3-5.0) mmol/L Potassium (3.5-5.1) mmol/L POC Chloride (101-112) mmol/L Chloride (98-107) mmol/L Carbon Dioxide (21-32) mmol/L POC Total CO2 (24-31) mmol/L Anion Gap (3-11) POC Anion Gap (16-25) mmol/L POC BUN (7-18) mg/dl BUN (6-23) mg/dl Creatinine (0.6-1.2) mg/dl POC Creatinine (0.6-1.3) mg/dl Est Cr Clr Drug Dosing ml/min Est GFR ( Amer) ml/min Est GFR (Non-Af Amer) ml/min BUN/Creatinine Ratio (10-20) Glucose (70-99(Fasting)) mg/dl POC Glucose (70-99) mg/dl POC Glucose (other) (70-99) mg/dl Estimat Average Glucose mg/dl Hemoglobin A1c (4.5-5.6) % Lactate 2.4 H* (0.4-2.0) mmol/L Calcium (8.6-10.3) mg/dl POC Ioniz Calcium Art (1.12-1.32) mmol/l Magnesium (1.7-2.4) mg/dl Total Bilirubin (0.2-1.0) mg/dl Direct Bilirubin (0-0.2) mg/dl AST (13-39) U/L ALT (7-52) U/L Alkaline Phosphatase (34-104) U/L Total Creatine Kinase (26-192) U/L Troponin I High Sens (0-14) pg/ml Total Protein (6.0-8.3) gm/dl Albumin (3.4-5.0) gm/dl Globulin (2.5-4.0) gm/dl Albumin/Globulin Ratio (0.9-2) Procalcitonin > 200.00 H (0-0.5) ng/ml Enterobacterales (PCR) DETECTED A (NotDetected) E. coli (PCR) DETECTED A (NotDetected) SARS-CoV-2, RNA, NAAT (NEGATIVE) mcr-1 Colistin Res Gene PCR Not Detected (NotDetected) blaIMP Car res Gene PCR Not Detected (NotDetected) KPC-Carbap Res Gene PCR Not Detected (NotDetected) blaNDM Car Res Gene PCR Not Detected (NotDetected) OXA-48 Carbapenem Resis Gene (PCR) Not Detected (NotDetected) blaVIM Car Res Gene PCR Not Detected (NotDetected) CTX-M Gene Resistance (PCR) Not Detected (NotDetected) Bld Cult ID Panel PCR See PCR Comment (NotDetected) Blood Type Antibody Screen Antibody Identification Antibody ID Comment 10/17/22 10/17/22 Range/Units 13:21 13:21 WBC 7.88 (4.8-10.8) K/ul RBC 2.92 L (4.20-5.40) M/uL Hgb 9.0 L (12.0-16.0) g/dl POC Hgb (12.0-16.0) g/dl Hct 26.7 L (37.0-47.0) % POC Hct (37-47) % MCV 91.4 (80.0-100.0) fL MCH 30.8 (25.0-34.0) pg MCHC 33.7 (32.0-36.0) g/dL RDW Std Deviation 47.2 H (36.4-46.3) fL RDW Coeff of Aysha 14.2 (11.5-14.5) % Plt Count 113 L (130-400) K/uL MPV 9.8 (9.4-12.4) fL Immature Gran % (Auto) 2.2 % Neut % (Auto) 88.0 % Lymph % (Auto) 4.9 % [place]on % (Auto) 4.8 % Eos % (Auto) 0.0 % Baso % (Auto) 0.1 % Neut # (Auto) 6.93 H (1.40-6.50) K/uL Lymph # (Auto) 0.39 L (1.2-3.4) K/uL [place] # (Auto) 0.38 (0.11-0.59) K/uL Eos # (Auto) 0.00 (0-0.50) K/uL Baso # (Auto) 0.01 (0-0.2) K/uL Immature Gran # (Auto) 0.17 (0.01-0.20) K/uL Dohle Bodies 2+ VBG pH (7.36-7.41) VBG pCO2 (38-50) mmHg VBG pO2 mmHg VBG HCO3 mmol/L VBG O2 Saturation % VBG Base Excess mEq/L POC Sodium (135-144) mmol/L Sodium 133 L (136-145) mmol/L POC Potassium (3.3-5.0) mmol/L Potassium 3.5 (3.5-5.1) mmol/L POC Chloride (101-112) mmol/L Chloride 97 L (98-107) mmol/L Carbon Dioxide 24 (21-32) mmol/L POC Total CO2 (24-31) mmol/L Anion Gap 12 H (3-11) POC Anion Gap (16-25) mmol/L POC BUN (7-18) mg/dl BUN 51 H (6-23) mg/dl Creatinine 3.06 H (0.6-1.2) mg/dl POC Creatinine (0.6-1.3) mg/dl Est Cr Clr Drug Dosing 14.7 ml/min Est GFR ( Amer) 15.5 ml/min Est GFR (Non-Af Amer) 13.4 ml/min BUN/Creatinine Ratio 16.7 (10-20) Glucose 248 H (70-99(Fasting)) mg/dl POC Glucose (70-99) mg/dl POC Glucose (other) (70-99) mg/dl Estimat Average Glucose mg/dl Hemoglobin A1c (4.5-5.6) % Lactate (0.4-2.0) mmol/L Calcium 8.0 L (8.6-10.3) mg/dl POC Ioniz Calcium Art (1.12-1.32) mmol/l Magnesium 1.3 L (1.7-2.4) mg/dl Total Bilirubin 3.9 H (0.2-1.0) mg/dl Direct Bilirubin 2.8 H (0-0.2) mg/dl AST 383 H (13-39) U/L ALT 416 H (7-52) U/L Alkaline Phosphatase 154 H (34-104) U/L Total Creatine Kinase 281 H (26-192) U/L Troponin I High Sens 368.7 H* (0-14) pg/ml Total Protein 6.2 (6.0-8.3) gm/dl Albumin 3.3 L (3.4-5.0) gm/dl Globulin (2.5-4.0) gm/dl Albumin/Globulin Ratio (0.9-2) Procalcitonin (0-0.5) ng/ml Enterobacterales (PCR) (NotDetected) E. coli (PCR) (NotDetected) SARS-CoV-2, RNA, NAAT (NEGATIVE) mcr-1 Colistin Res Gene PCR (NotDetected) blaIMP Car res Gene PCR (NotDetected) KPC-Carbap Res Gene PCR (NotDetected) blaNDM Car Res Gene PCR (NotDetected) OXA-48 Carbapenem Resis Gene (PCR) (NotDetected) blaVIM Car Res Gene PCR (NotDetected) CTX-M Gene Resistance (PCR) (NotDetected) Bld Cult ID Panel PCR (NotDetected) Blood Type Antibody Screen Antibody Identification Antibody ID Comment
[2022-10-18] MEDS: SODIUM CHLORIDE 0.9% 1000ML 1,000 ML IV SCH (09:48)
--- NOTE | 2022-10-18 13:25 | Pharmacy Report ---
Pharmacy Glycemic Short Note 2 - Date of Service October 18, 2022 - Glycemic Short BSG Results (Last 24 hours): 10/17/22 10/17/22 10/17/22 13:21 13:34 20:51 Glucose 248 H POC Glucose 267 H POC Glucose (other) 262 H 10/18/22 10/18/22 10/18/22 06:21 07:48 11:59 Glucose 208 H POC Glucose 145 H 155 H POC Glucose (other) OUTPATIENT ANTIDIABETIC REGIMEN: * Levemir 11 units HS, glipizide 2.5 mg daily, victoza HbA1c: 6.1% (10/18/22) ASSESSMENT: 10/18/22: * BSGs much improved this morning at 145 mg/dL * NPO today for ERCP - in progress at this time * Will continue current insulin orders today w/ slight adjustment to Lantus scale this evening 10/17/22: * 82 year old, type 2 diabetic - presenting with abdominal pain, vomiting, and confusion. A1c ordered for tomorrow AM. Patient on clears, but changing to NPO for possible ERCP tomorrow AM * Plan to have scale for basal insulin at HS this evening 8-10 units. Will start novolog stress of 2 PLAN FOR INPATIENT GLYCEMIC CONTROL: * Hold outpatient oral diabetes medications * Basal insulin * Lantus 0-5-10 units HS per scale (see EHR for details) * Bolus insulin * NovoLog per scale ACHS or Q6hrs while NPO * Goal Range: Low 110 mg/dL - High 140 mg/dL * Correction Factor: 30 mg/dL/unit * Nutritional / Prandial insulin per carb ratio of 1 unit per 10 grams CHO consumed
[2022-10-18] MEDS ORDERED: ONDANSETRON INJ 2 MG/ML 2 ML VIAL ONE (13:30)
[2022-10-18] MEDS ORDERED: DEXAMETHASONE SOD INJ 4 MG/ML VIAL ONE (13:30)
[2022-10-18] MEDS ORDERED: PROPOFOL IV EMULSION 10 MG/ML 20 ML VIAL IV ONE (13:30)
[2022-10-18] MEDS ORDERED: LIDOCAINE 2% 2 ML VIAL/AMP(20MG/ML) INFIL ONE (13:31)
[2022-10-18] MEDS ORDERED: fentaNYL citrate PF 100 MCG/2 ML VIAL ONE (13:31)
--- NOTE | 2022-10-18 13:31 | Anesthesiology Consultation ---
Date of Service October 18, 2022 Assessment & Plan (1) Encounter for pre-operative examination: Chart Review Chart Review: Acceptable Risk for Surgery and Patient NOT seen in Pre Admission Testing Cardiology note 10/18/22: Assessment & Plan (1) Acute metabolic encephalopathy: (2) Choledocholithiasis: (3) Elevated troponin: (4) Prolonged QT interval: Plan 82-year-old female with known moderate aortic stenosis and stage IV CKD. Admitted for Choledocholithiasis with plans for ERCP. Peak high-sensitivity troponin of 436 and trending downward. Likely in the setting of demand ischemia/NSTEMI. EKG without ischemic changes but QTc prolonged at 525 ms Patient well compensated from a cardiac standpoint upon exam. She is currently chest pain-free with no evidence of hypervolemia Patient at moderate but acceptable risk to proceed with ERCP. Consider outpatient nuclear stress testing however given renal dysfunction patient may be a poor candidate for cardiac catheterization. Continue medical management with aspirin. Not currently on statin due to abnormal LFTs. Avoid QTc prolonging medications-repeat EKG to reassess Please refer to physician addendum for further information as per plan of care. Consults Requested none History Surgery Operation Date: 10/18/22 08:30 Proposed Procedures p Endoscopic Retrograde Cholangiopancreato - Ericen Franci Marie, Height/Weight Height: 5 ft 2 in Weight: 90.5 kg Allergies Allergy/AdvReac Type Severity Reaction Status Date / Time sulfamethoxazole Allergy unknown Unverified 10/14/20 14:58 [From Bactrim] reaction trimethoprim [From Bactrim] Allergy unknown Unverified 10/14/20 14:58 reaction Medications Home Medications Medication Instructions Recorded Confirmed Last Taken aspirin 81 mg tablet,delayed 81 mg PO DAILY 10/14/20 10/17/22 Unknown release (Alberto Low Dose Aspirin) atorvastatin 40 mg tablet 40 mg PO QPM 10/14/20 10/17/22 Unknown cholecalciferol (vitamin D3) 125 125 mcg PO DAILY 10/14/20 10/17/22 Unknown mcg (5,000 unit) capsule docusate sodium 100 mg capsule 100 mg PO BID PRN Other 10/14/20 10/17/22 Unknown famotidine 20 mg tablet 20 mg PO BID 10/14/20 10/17/22 Unknown furosemide 40 mg tablet 40 mg PO DAILY 10/14/20 10/17/22 Unknown gabapentin 400 mg capsule 400 mg PO BID 10/14/20 10/17/22 Unknown insulin detemir U-100 100 unit/mL 11 unit subcut HS 10/14/20 10/17/22 Unknown (3 mL) subcutaneous pen (Levemir FlexTouch U-100 Insulin) levothyroxine 50 mcg tablet 50 mcg PO DAILY 10/14/20 10/17/22 Unknown liraglutide 0.6 mg/0.1 mL (18 mg/3 1.8 mg subcut QAM 10/14/20 10/17/22 Unknown mL) subcutaneous pen injector (Victoza 3-George) sodium bicarbonate 650 mg tablet 650 mg PO BID PRN Other 10/14/20 10/17/22 Unknown calcitriol 0.25 mcg capsule 0.25 mcg PO DAILY 10/17/22 10/17/22 Unknown diclofenac sodium 1 % topical gel See Rx Instructions .Route 10/17/22 10/17/22 Unknown .COMPLEX PRN Other ezetimibe 10 mg tablet 10 mg PO DAILY 10/17/22 10/17/22 Unknown glipizide 2.5 mg tablet, extended 2.5 mg PO DAILY 10/17/22 10/17/22 Unknown release 24 hr lisinopril 20 mg tablet 20 mg PO DAILY 10/17/22 10/17/22 Unknown loratadine 10 mg tablet (Allergy 10 mg PO DAILY 10/17/22 10/17/22 Unknown Relief (loratadine)) polysaccharide iron complex 150 mg 150 mg PO BID 10/17/22 10/17/22 Unknown iron capsule (iFerex 150) Active Medications Generic Name Dose Route Start Last Admin Trade Name Odilon PRN Reason Stop Dose Admin Aspirin 81 mg 10/18/22 09:00 10/18/22 08:59 Aspirin 81 Mg Ectab PO 11/17/22 08:59 81 mg DAILY ASH Administration Calcitriol 0.25 mcg 10/18/22 09:00 10/18/22 08:59 Calcitriol 0.25 Mcg Capsule PO 11/17/22 08:59 0.25 mcg DAILY ASH Administration Famotidine 20 mg 10/17/22 21:00 10/18/22 08:58 Famotidine 20 Mg Tab PO 11/16/22 20:59 20 mg BID ASH Administration Gabapentin 400 mg 10/17/22 21:00 10/18/22 08:58 Gabapentin 400 Mg Cap PO 11/16/22 20:59 400 mg BID ASH Administration Piperacillin Sod/Tazobactam 120 mls @ 30 mls/hr 10/18/22 04:00 10/18/22 09:10 Sod 4.5 gm/ Dextrose IV 10/28/22 03:59 Infused Q12H ASH Infusion Protocol Sodium Chloride 1,000 mls @ 80 mls/hr 10/18/22 09:15 10/18/22 09:48 Nss 1000ml IV 10/19/22 10:14 80 mls/hr .[id number] ASH Administration Insulin Aspart 0 units 10/17/22 21:00 10/18/22 12:17 Insulin Aspart Per Unit Charge SC 11/16/22 20:59 1 units ACHS ASH Administration Insulin Glargine 0 units 10/17/22 21:00 10/17/22 23:47 Lantus Per Unit Charge SQ 11/16/22 20:59 10 units HS ASH Administration Protocol Levothyroxine Sodium 50 mcg 10/18/22 06:30 10/18/22 06:59 Levothyroxine Sodium 50 Mcg Tablet PO 11/17/22 06:29 50 mcg DAILYBB ASH Administration Polysaccharide Iron Complex 150 mg 10/17/22 21:00 10/18/22 08:58 Iron Polysaccharide Complex 150 Mg Capsule PO 11/16/22 20:59 150 mg BID ASH Administration Past Medical History Medical History (Updated 10/18/22 @ 13:31 by Greg Corbin MD) Abnormal LFTs Acute metabolic encephalopathy Anemia Choledocholithiasis CKD (chronic kidney disease), stage IV DM type 2 (diabetes mellitus, type 2) Elevated troponin Encounter for pre-operative examination HLD (hyperlipidemia) HTN (hypertension) Moderate aortic stenosis Postsurgical hypothyroidism Prolonged QT interval Past Surgical History Surgical History History of cholecystectomy History of thyroidectomy Social History Smoking Status: Never smoker Do You Dip or Chew Tobacco: No Hx Alcohol Use: No Hx Substance Use: No Physical Exam Vital Signs Last Vital Signs Temp 36.5 C 10/18/22 12:31 Pulse 61 10/18/22 12:31 Resp 20 10/18/22 12:31 BP 96/58 L 10/18/22 12:31 Pulse Ox 97 10/18/22 12:31 O2 Del Method Room Air 10/18/22 12:31 O2 Flow Rate 2 10/18/22 08:58 Testing Laboratory Results 10/18/22 06:21 10/18/22 06:21 Hemoglobin A1c 6.1 % (4.5-5.6) H 10/18/22 06:21 Blood Type O Negative 10/17/22 14:00 Antibody Screen POSITIVE A 10/17/22 14:00 10/17/22 13:21 Aerobic Blood Culture - Preliminary Blood Gram negative bacilli Anaerobic Blood Culture - Preliminary Gram negative bacilli 10/17/22 13:30 Anaerobic Blood Culture - Preliminary Blood Gram negative bacilli 10/18/22 10/18/22 11:59 07:48 POC Glucose 155 H 145 H Electrocardiogram Date: 10/17/22 Findings: + NSR @ (77) Normal sinus rhythm Moderate voltage criteria for LVH, may be normal variant Prolonged QT Abnormal ECG No previous ECGs available Confirmed by Ryan Osborn ([id number]) on 10/17/2022 5:36:35 PM Chest X-Ray Date: 10/17/22 XR chest 1V portable HISTORY: Sepsis COMPARISON: None. FINDINGS: The heart is enlarged. Rotated study. No pneumothorax. There are low lung volumes. Mild central pulmonary vascular congestion without overt edema. Bibasilar linear densities favor subsegmental atelectasis. IMPRESSION: 1. Mild central pulmonary vascular congestion without overt edema. 2. Cardiomegaly. 3. Low lung volumes with bibasilar linear densities. This favors subsegmental atelectasis. Echocardiogram Date: 10/18/22 Mild LVH LV wall motion is normal. LV systolic funtion is normal. EF 55-60% RV is normal in size and function. Moderate is present Grade 2 DD
[2022-10-18] MEDS ORDERED: ROCURONIUM BROMIDE 10 MG/ML 5 ML VIAL IV ONE (13:33)
[2022-10-18] MEDS ORDERED: SUCCINYLCHOLINE CHLORIDE 20 MG/ML 10 ML VIAL IV ONE (13:33)
--- NOTE | 2022-10-18 13:54 | History & Physical Bridge Note ---
Date of Service October 18, 2022 History & Physical Bridge Note I have examined the patient, reviewed the History & Physical and in the interval since the performance of the History & Physical I have noted the following changes of clinical significance: no changes noted I saw and evaluated the patient. We are planning to do ERCP for suspected choledocholithiasis and cholangitis. We discussed risks and benefits of the procedure in addition to complications which include bleeding, infection, perforation, pain, pancreatitis and cardiopulmonary problems. We also discussed the potential for a failed biliary cannulation. We discussed the fact that this is an increased level of complexity due to her ongoing health issues and presentation with sepsis.
[2022-10-18] MEDS ORDERED: ATROPINE SULFATE 0.1 MG/ML 10ML SYR IV PRN (13:55)
[2022-10-18] MEDS ORDERED: ePHEDrine sulfate 50 MG/ML AMP IV PRN (13:55)
[2022-10-18] MEDS ORDERED: FLUMAZENIL 0.1 MG/1 ML 10 ML VIAL IV PRN (13:55)
[2022-10-18] MEDS ORDERED: fentaNYL citrate PF 100 MCG/2 ML VIAL IV PRN (13:55)
[2022-10-18] MEDS ORDERED: PROMETHAZINE HCL 12.5 MG in SODIUM CHLORIDE 0.9% 50 ML IV PRN (13:55)
[2022-10-18] MEDS ORDERED: LABETALOL HCL IV 5 MG/ML 20ML IV PRN (13:55)
[2022-10-18] MEDS ORDERED: ONDANSETRON INJ 2 MG/ML 2 ML VIAL IV PRN (13:55)
[2022-10-18] MEDS ORDERED: NALOXONE HCL 0.4 MG/1 ML VIAL/CARP IV PRN (13:55)
--- NOTE | 2022-10-18 14:49 | Post Operative Brief Note ---
Immediate Post Op Note v1 Date of Surgery October 18, 2022 Pre & Post Diagnosis Operation Date: 10/18/22 08:30 Pre-Op Diagnosis: CHOLEDOCHOLITHIASIS Post-Op Diagnosis: CHOLEDOCHOLITHIASIS/cholangitis I identified the patient and participated in the time-out.: Yes Procedure Operation Date: 10/18/22 08:30 Actual Procedures p Endoscopic Retrograde Cholangiopancreatography(Not Applicable) - Brii Marie DO Surgeon Brii Marie, DO Aluminum Pool Installer none Estimated Blood Loss 0 Findings Consistent with Post-Op Diagnosis
--- NOTE | 2022-10-18 14:51 | Hospitalist Progress Note ---
Date of Service October 18, 2022 Assessment & Plan (1) Choledocholithiasis: (2) Acute metabolic encephalopathy: Plan: Patient presenting from home with reports of vomiting, confusion, generalized weakness.In ED, found to have transaminitis and CT ABD/pelvis showing 7 mm stone in the common bile duct. Noted prior history of laparoscopic cholecystectomy in 2020. Acute metabolic encephalopathy Gram-negative bacteremia Choledocholithiasis Transaminitis secondary to above --CT ABD:No bowel wall thickening or obstruction. Possible 7 mm stone at the distal common bile duct. Correlation with LFTs recommended. Follow-up MRCP or ERCP could also be used for further evaluation. Small hiatus hernia. Colonic diverticulosis. No evidence for acute diverticulitis. Normal appendix. Gas within the bladder. This may be due to prior catheterization. --CT head:There is no hemorrhage, mass effect, or evidence of acute territorial ischemia by CT criteria. -- Blood culture positive for gram-negative bacilli --BioFire: Enterobacter results, E. coli -- Plan for ERCP today Continue IV Zosyn for now Will repeat blood cultures tomorrow Appreciate GI input Monitor LFTs Avoid hepatotoxic agents as able Mental status back to baseline (3) Elevated troponin: Plan: Elevated troponin in setting of CKD stage IV Prolonged QT interval Moderate aortic stenosis Troponin elevation likely demand ischemia -- Patient denied any chest pain --ECHO: Mild concentric LVH. Left ventricle wall motion is normal. Left ventricle systolic function is normal. EF 55 to 60%. Right ventricle is normal in size and function. Moderate mitral annular calcification. Aortic valve is moderately calcified. Moderate aortic stenosis present. Grade 2 diastolic dysfunction. Mild tricuspid regurgitation. Avoid QTc prolonging meds Appreciate cardiology input May need outpatient pharmacological stress test Check lipid panel (4) Prolonged QT interval: Plan: QTc 525 Avoid QTc prolonging agents Monitor (5) Moderate aortic stenosis: Plan: Moderate aortic stenosis Echo as outpatient (6) CKD (chronic kidney disease), stage IV: Plan: Creatinine 3.0 Follows with nephrology as outpatient (7) HTN (hypertension): Plan: Hold lisinopril for now Blood pressure stable (8) DM type 2 (diabetes mellitus, type 2): Plan: Hgb A1c 6.1 Lantus NovoLog per protocol while hospitalized Monitor BGs (9) Anemia: Plan: Normocytic anemia Thrombocytopenia Likely anemia of chronic disease Continue iron supplements Monitor CBC (10) Postsurgical hypothyroidism: Plan: Continue levothyroxine (11) HLD (hyperlipidemia): Plan: Hold statin given elevated LFTs DVT Px SCDs for now Admission and Anticipated Discharge Date Admission Date: October 17, 2022 Subjective Patient is seen and examined at bedside States having generalized weakness and tiredness Less nausea today but no vomiting Dyspnea resolved Denies any chest pain, dizziness, abdominal pain No other complaints Plan for ERCP today Review of Systems Review of Systems: All systems reviewed & are unremarkable except as noted in Subjective Physical Exam Physical Exam: Physical Exam: Vitals signs as noted above General Appearance:Obese, no apparent distress Head: normocephalic, Atraumatic Eyes: normal inspection, EOMI Neck: supple, Trachea midline Respiratory/Chest: Normal breath sounds, CTA, No accessory muscle use Cardiovascular: S1, S2,+murmur Abdomen/GI:Soft, Non tender, Bowel sounds present Extremities/Musculoskeletal:normal inspection, no edema Neurologic/Psych:AAOX3, grossly no focal neurological deficits Skin: normal color, warm Results & Data Results & Data Vital Signs (Past 12 Hours) Vital Signs Temp Pulse Pulse Resp BP BP Pulse Ox 10/18/22 13:18 36.7 C 73 20 124/48 L 96 10/18/22 12:31 36.5 C 61 20 96/58 L 97 10/18/22 08:58 61 10/18/22 08:58 10/18/22 07:53 36.5 C 65 19 106/63 98 10/18/22 04:12 36.8 C 63 20 120/68 98 O2 Del Method O2 Flow Rate 10/18/22 13:18 Room Air 10/18/22 12:31 Room Air 10/18/22 08:58 10/18/22 08:58 Nasal Cannula 2 10/18/22 07:53 Nasal Cannula 2.0 10/18/22 04:12 Nasal Cannula 2 Laboratory Results Short CBC 10/18/22 Range/Units 06:21 WBC 5.70 (4.8-10.8) K/ul Hgb 8.2 L (12.0-16.0) g/dl Hct 24.7 L (37.0-47.0) % Plt Count 100 L (130-400) K/uL BMP 10/18/22 06:21 Sodium 134 L Potassium 3.8 Chloride 98 Carbon Dioxide 26 BUN 52 H Creatinine 3.02 H Glucose 208 H Calcium 7.6 L Cardiac Enzymes 10/17/22 Range/Units 13:21 Total Creatine Kinase 281 H (26-192) U/L Liver Function 10/18/22 Range/Units 06:21 Total Bilirubin 3.2 H (0.2-1.0) mg/dl AST 227 H (13-39) U/L ALT 307 H (7-52) U/L Alkaline Phosphatase 101 (34-104) U/L Albumin 2.8 L (3.4-5.0) gm/dl
--- NOTE | 2022-10-18 14:52 | Communication Note ---
Date of Service: October 18, 2022 The patient underwent ERCP this afternoon for suspected cholangitis. We found numerous gallstones within the common bile duct, there was also pus which is consistent with the underlying diagnosis of cholangitis. We performed a biliary sphincterotomy, a prophylactic pancreatic stent was placed and a biliary stent was placed after gallstone extraction. Recommendations Patient may have clear liquids tonight Continue with IV hydration Patient should complete a 2-week course of antibiotics given underlying cholangitis Anticoagulation for 5 days, hold aspirin for 5 days possible Repeat ERCP for stent removal in 6 to 8 weeks
--- NOTE | 2022-10-18 15:02 | GI REPORT ---
Patient Name: Ioana Abbott Procedure Date: 10/18/2022 1:58 PM Date of : 1940 Admit Type: Inpatient Age: 82 Gender: Female Attending MD: Brii Marie DO, Procedure: ERCP Providers: Brii Marie DO Referring MD: Larry Alonzo Md Indications: Abdominal pain of suspected biliary origin, Suspected ascending cholangitis, Elevated liver enzymes Medicines: General Anesthesia Complications: No immediate complications. Estimated blood loss: Minimal. Estimated Blood Loss: Estimated blood loss was minimal. Procedure: Pre-Anesthesia Assessment: - Prior to the procedure, a History and Physical was performed, and patient medications, allergies and sensitivities were reviewed. The patient's tolerance of previous anesthesia was reviewed. - The risks and benefits of the procedure and the sedation options and risks were discussed with the patient. All questions were answered and informed consent was obtained. - Patient identification and proposed procedure were verified prior to the procedure by the physician, the nurse and the swimming coach. The procedure was verified in the procedure room. - Pre-procedure physical examination revealed no contraindications to sedation. - ASA Grade Assessment: IV - A patient with severe systemic disease that is a constant threat to life. - After reviewing the risks and benefits, the patient was deemed in satisfactory condition to undergo the procedure. - The anesthesia plan was to use general anesthesia. - Immediately prior to administration of medications, the patient was re-assessed for adequacy to receive sedatives. - The heart rate, respiratory rate, oxygen saturations, blood pressure, adequacy of pulmonary ventilation, and response to care were monitored throughout the procedure. - The physical status of the patient was re-assessed after the procedure. After obtaining informed consent, the scope was passed under direct vision. Throughout the procedure, the patient's blood pressure, pulse, and oxygen saturations were monitored continuously. The Duodenoscope was introduced through the mouth, and advanced to the duodenum and used to inject contrast into the bile duct. The ERCP was accomplished without difficulty. The patient tolerated the procedure well. Findings: A abrasive band winder film of the abdomen was obtained. Surgical clips, consistent with a previous cholecystectomy, were seen in the area of the right upper quadrant of the abdomen. The esophagus was successfully intubated under direct vision without detailed examination of the pharynx, larynx, and associated structures, and upper GI tract. The upper GI tract was grossly normal. The major papilla was congested. The ventral pancreatic duct was inadvertently cannulated with the short-nosed traction sphincterotome and guidewire without any complications. The bile duct was deeply cannulated with the short-nosed traction sphincterotome and guidewire. Contrast was injected. I personally interpreted the bile duct images. Contrast extended to the entire biliary tree. A cholecystectomy had been performed. The lower third of the main bile duct and middle third of the main bile duct contained filling defect(s) thought to be a stone and sludge. Biliary sphincterotomy was made with a monofilament Fusion OMNI sphincterotome using ERBE electrocautery. There was no post-sphincterotomy bleeding. To discover objects, the biliary tree was swept with a 15 mm balloon starting at the bifurcation. Sludge was swept from the duct. Many stones were removed. No stones remained. Pus was swept from the duct. One 10 Fr by 8 cm biliary stent with a single external flap and a single internal flap was placed 8 cm into the common bile duct. Bile flowed through the stent. The stent was in good position. One 5 Fr by 7 cm pancreatic stent with a full external pigtail and no internal flaps was placed 7 cm into the ventral pancreatic duct. Clear fluid flowed through the stent. The stent was in good position. The endoscope was withdrawn from the patient. The total fluoroscopy exposure time was 1 minute and 4 seconds. The endoscope was withdrawn from the patient. Impression: - The patient has had a cholecystectomy. - Choledocholithiasis and cholangitis was found. Complete removal was accomplished by biliary sphincterotomy and balloon extraction. - One biliary stent was placed into the common bile duct. - One pancreatic stent was placed into the ventral pancreatic duct. Recommendation: - Avoid aspirin and nonsteroidal anti-inflammatory medicines for 1 week. - Clear liquid diet today. - Use broad spectrum antibiotics for 2 weeks. - Repeat ERCP in 6-8 weeks to remove stent. Brii Marie D.O. Brii Marie DO 10/18/2022 3:01:23 PM This report has been signed electronically. Note Initiated On: 10/18/2022 1:58 PM Number of Addenda: 0 I attest to the content of the Intraoperative Record and orders documented therein, exceptions below {[id number]}
--- NOTE | 2022-10-18 15:44 | Anesthesiology Progress Note ---
Date of Service October 18, 2022 Anesthesia Post Procedure Vital Signs Vital Signs: Temp Pulse Pulse Pulse Resp BP BP 10/18/22 15:34 36.6 C 65 16 145/68 H 10/18/22 15:20 36.5 C 71 16 145/64 H 10/18/22 15:10 73 20 143/50 H 10/18/22 15:00 76 16 123/65 10/18/22 14:54 36.9 C 90 16 143/53 H 10/18/22 13:18 36.7 C 73 20 10/18/22 12:31 36.5 C 61 20 10/18/22 08:58 61 10/18/22 08:58 10/18/22 07:53 36.5 C 65 19 10/18/22 04:12 36.8 C 63 20 120/68 10/17/22 23:43 36.4 C L 61 20 10/17/22 19:30 36.6 C 66 16 110/68 10/17/22 19:09 37.1 C 67 20 125/65 10/17/22 19:04 67 21 125/65 10/17/22 18:55 66 20 115/61 10/17/22 18:50 67 20 118/76 10/17/22 18:40 66 18 115/64 10/17/22 18:30 65 18 128/51 L 10/17/22 18:20 66 19 112/54 L 10/17/22 18:15 64 17 110/62 10/17/22 18:10 68 18 117/55 L 10/17/22 18:05 65 16 113/64 10/17/22 18:04 68 18 110/58 L 10/17/22 17:35 71 22 120/59 L 10/17/22 17:30 70 24 124/61 10/17/22 17:27 73 20 117/72 10/17/22 17:15 68 21 118/63 10/17/22 17:05 68 20 108/58 L 10/17/22 16:50 70 22 107/60 10/17/22 16:10 70 21 116/54 L 10/17/22 16:27 37.0 C 70 18 102/53 L 10/17/22 15:55 67 19 99/53 L 10/17/22 15:50 70 19 98/54 L 10/17/22 15:45 73 23 99/50 L BP Pulse Ox O2 Del Method O2 Flow Rate 10/18/22 15:34 94 Room Air 10/18/22 15:20 95 Room Air 10/18/22 15:10 96 Room Air 10/18/22 15:00 95 Room Air 10/18/22 14:54 100 Oxymask 4 10/18/22 13:18 124/48 L 96 Room Air 10/18/22 12:31 96/58 L 97 Room Air 10/18/22 08:58 10/18/22 08:58 Nasal Cannula 2 10/18/22 07:53 106/63 98 Nasal Cannula 2.0 10/18/22 04:12 98 Nasal Cannula 2 10/17/22 23:43 102/61 93 Room Air 10/17/22 19:30 94 Room Air 10/17/22 19:09 100 Nasal Cannula 2 10/17/22 19:04 99 2 10/17/22 18:55 100 Nasal Cannula 2 10/17/22 18:50 100 Nasal Cannula 2 10/17/22 18:40 100 Nasal Cannula 2 10/17/22 18:30 100 Nasal Cannula 2 10/17/22 18:20 99 2 10/17/22 18:15 100 2 10/17/22 18:10 98 2 10/17/22 18:05 100 2 10/17/22 18:04 99 Nasal Cannula 2 10/17/22 17:35 100 Nasal Cannula 2 10/17/22 17:30 99 Nasal Cannula 2 10/17/22 17:27 99 Nasal Cannula 2 10/17/22 17:15 99 Nasal Cannula 2 10/17/22 17:05 99 Nasal Cannula 2 10/17/22 16:50 99 Nasal Cannula 2 10/17/22 16:10 99 Nasal Cannula 2 10/17/22 16:27 99 Nasal Cannula 2 10/17/22 15:55 98 Nasal Cannula 2 10/17/22 15:50 98 Nasal Cannula 2 10/17/22 15:45 98 Nasal Cannula 2 Pain Intensity Abdomen: Pain Intensity: 5 Transfer of Care Handoff Completed per policy Notes Mental Status: alert / awake / arousable Patient Amnestic to Procedure: Yes Nausea / Vomiting: adequately controlled Pain: adequately controlled Airway Patency, RR, SpO2: stable & adequate BP & HR: stable & adequate Hydration State: stable & adequate Anesthetic Complications: no major complications apparent and Pt Satisfied with anesthetic care
--- NOTE | 2022-10-18 19:46 | Fluoroscopy Report ---
INTRAOPERATIVE RADIOGRAPHS CLINICAL HISTORY: ERCP Fluoro time: 66 seconds. Ka,r: 31.43 mGy FINDINGS: 3 spot fluoroscopic views of the abdomen are correlated with abdominal CT dated 10/17/2022. C holecystectomy clips are noted. The initial image shows the endoscope projecting over the stomach. Wi res are present within the common bile duct and the pancreatic duct. Contrast injected in the common bile duct shows extrahepatic biliary ductal dilatation. A filling defect within the common bile duct likely represents choledocholithiasis. IMPRESSION: Intraoperative ERCP images as above. See operative report for detailed findings. Electronically signed by: Andrew Sanders M.D. 10/18/2022 7:45 PM
[2022-10-18] MEDS: LANTUS PER UNIT CHARGE SQ SCH (21:04)
[2022-10-19] MEDS: SODIUM CHLORIDE 0.9% 1000ML 1,000 ML IV SCH (02:05)
[2022-10-19] MEDS: PIPERACILLIN/TAZOBACTAM 4.5 GM in DEXTROSE 5% 100 ML IV SCH ×2 (04:45→16:30)
[2022-10-19] MEDS: LEVOTHYROXINE SODIUM 50 MCG TABLET PO SCH (06:31)
[2022-10-19 06:46] LABS: Hematocrit (blood only) 26.1 % (37.0-47.0); Hemoglobin 8.9 g/dl (12.0-16.0); Mean Corpuscular Hgb Conc 34.1 g/dL (32.0-36.0); Mean Corpuscular Volume 90.9 fL (80.0-100.0); Mean Platelet Volume 10.2 fL (9.4-12.4); Platelet Count 111 K/uL (130-400); RDW Coefficient of Variation 13.7 % (11.5-14.5); RDW Standard Deviation 45.8 fL (36.4-46.3); Red Blood Count 2.87 M/uL (4.20-5.40); White Blood Count 5.02 K/ul (4.8-10.8)
[2022-10-19 07:15] LABS: Alanine Aminotransferase 229 U/L (7-52); Albumin Globulin Ratio 0.9 (0.9-2); Albumin Level 2.8 gm/dl (3.4-5.0); Alkaline Phosphatase 101 U/L (34-104); Anion Gap 13 (3-11); Aspartate Aminotransferase 116 U/L (13-39); BUN Creatinine Ratio 21.2 (10-20); Bilirubin,Total 1.7 mg/dl (0.2-1.0); Blood Urea Nitrogen 65 mg/dl (6-23); Calcium 7.7 mg/dl (8.6-10.3); Carbon Dioxide 21 mmol/L (21-32); Chloride 100 mmol/L (98-107); Chol HDL Ratio 16.7 (0-5); Cholesterol 117 mg/dl (0-200); Creatinine Clr Calc Pharmacy 14.3 ml/min; Est GFR (African American) 15.4 ml/min; Est GFR (Non-African American) 13.3 ml/min; Glucose 344 mg/dl (70-99(Fasting)); HDL Cholesterol 7 mg/dl; Magnesium 1.9 mg/dl (1.7-2.4); Potassium 4.5 mmol/L (3.5-5.1); Sodium 134 mmol/L (136-145); Total Protein 5.8 gm/dl (6.0-8.3); Triglycerides 402 mg/dl (0-150)
[2022-10-19] MEDS ORDERED: INSULIN HUMAN REGULAR PER UNIT 5 UNITS in SYRINGE 4.95 ML IV ONE ×2 (07:45→12:30)
[2022-10-19] MEDS ORDERED: LANTUS PER UNIT CHARGE SQ ONE ×2 (07:45→12:15)
--- NOTE | 2022-10-19 08:28 | Cardiology Progress Note ---
Date of Service October 19, 2022 Assessment & Plan (1) Acute metabolic encephalopathy: (2) Choledocholithiasis: (3) Elevated troponin: (4) Prolonged QT interval: Plan 82 yo woman presenting with confusion, abdominal pain and emesis Dx: Choledocholithiasis + Demand Ischemia/NSTEMI Tn peak 436 - trending down QTC - 525 CT Scan 10/17/2022: S/P Lab Cholecystectomy 7 mm stone in CBD Cardiac HX: Moderate HTN DMII CKD Stage 4 Anemia Hyperlipidemia Plans: Troponin elevation appears consistent with demand ischemia in the setting of significant physical stress related to CBD stone. * Pt may benefit from outpt Pharmacologic Stress Testing * Check 12-lead EKG (PENDING) * ECHO on 10/18/2022 with normal LV function and Moderate * ASA 81 mg po per day if possible * As LFTs improve, would consider starting Crestor 20 mg po per day * LDL (Pending) * SBP elevated at 155 mmHg * Consider resuming home antihypertensive - Lisinopril at reduced dose of 10 mg po per day * HBA1c - 6.1 * Please arrange for F/U with [facility] @ [facility] in 4 weeks * Plans for outpt pharamcologic stress given demand ischemia in the setting of Choledocholithiasis Jhonny Guajardo Admission and Anticipated Discharge Date Admission Date: October 17, 2022 Supervising Physician Co-Signing Physician Notes Pt seen and evaluated with [facility] staff. Concur with observations and plans Jhonny Guajardo Subjective Events Overnight: * ERCP performed * Removal of CBD Stone * Pancreatic + Billiary Stent Placed * No immediate complications noted * No chest pain Review of Systems Review of Systems: All systems reviewed & are unremarkable except as noted in HPI & below Physical Exam Physical Exam: Pt in NAD JVP @ base of neck S1S2 2/6 systolic murmur CTA B + Obese abdomen; + BS - soft No C/C/E Warm and perfusing Results & Data Vital Signs (Past 12 Hours) Vital Signs Temp Pulse Pulse Resp BP Pulse Ox O2 Del Method 10/19/22 08:00 61 10/19/22 07:21 36.3 C L 58 L 18 155/66 H 95 Room Air 10/19/22 03:00 36.4 C L 61 19 156/77 H 96 Room Air 10/18/22 23:00 36.6 C 70 18 133/69 96 Room Air Laboratory Results Cardiac Enzymes 10/19/22 Range/Units 06:01 AST 116 H (13-39) U/L Lipids 10/19/22 Range/Units 06:01 Triglycerides 402 H (0-150) mg/dl Cholesterol 117 (0-200) mg/dl HDL Cholesterol 7 mg/dl Cholesterol/HDL Ratio 16.7 H (0-5) CBC 10/19/22 Range/Units 06:01 WBC 5.02 (4.8-10.8) K/ul RBC 2.87 L (4.20-5.40) M/uL Hgb 8.9 L (12.0-16.0) g/dl Hct 26.1 L (37.0-47.0) % Plt Count 111 L (130-400) K/uL Comprehensive Metabolic Panel 10/19/22 Range/Units 06:01 Sodium 134 L (136-145) mmol/L Potassium 4.5 (3.5-5.1) mmol/L Chloride 100 (98-107) mmol/L Carbon Dioxide 21 (21-32) mmol/L BUN 65 H (6-23) mg/dl Creatinine 3.07 H (0.6-1.2) mg/dl Glucose 344 H* (70-99(Fasting)) mg/dl Calcium 7.7 L (8.6-10.3) mg/dl AST 116 H (13-39) U/L ALT 229 H (7-52) U/L Alkaline Phosphatase 101 (34-104) U/L Total Protein 5.8 L (6.0-8.3) gm/dl Albumin 2.8 L (3.4-5.0) gm/dl Intake and Output 10/18/22 10/19/22 10/19/22 22:59 06:59 14:59 Intake Total 520 / 2640 1000 / 2640 Output Total Balance 519 / 2639 1000 / 2639 Intake: IV 120 / 2240 1000 / 2240 Piperacillin/Tazobactam 4.5 gm 120 / 240 In Dextrose 5% 100 ml @ 30 mls/ hr IV Q12H ASH Rx#:[id number] Sodium Chloride 0.9% 1000ML 1, 1000 / 1000 000 ml @ 80 mls/hr IV .[id number] A[facility] Rx#:[id number] IV Perioperative 300 / 300 Oral 100 / 100 Output: Estimated Blood Loss 0 / 0 # Bowel Movements 1 / 1 Other: Other Intake Source Patient is NPO. # Unmeasured Voids 1 1 Medications Administered Current Inpatient Medications Aspirin (Aspirin 81 Mg Ectab) 81 mg PO DAILY ASH Stop: 11/17/22 08:59 Last Admin: 10/18/22 08:59 Dose: 81 mg Calcitriol (Calcitriol 0.25 Mcg Capsule) 0.25 mcg PO DAILY ASH Stop: 11/17/22 08:59 Last Admin: 10/18/22 08:59 Dose: 0.25 mcg Dextrose (Dextrose 50% 50 Ml Syringe) 25 - 50 ml IV UD PRN; Protocol PRN Reason: Hypoglycemia Protocol Stop: 11/16/22 19:48 Docusate Sodium (Docusate Sodium 100 Mg Cap) 100 mg PO BID PRN PRN Reason: constipation Stop: 11/16/22 19:48 Famotidine (Famotidine 20 Mg Tab) 20 mg PO BID ASH Stop: 11/16/22 20:59 Last Admin: 10/18/22 21:03 Dose: 20 mg Gabapentin (Gabapentin 400 Mg Cap) 400 mg PO BID ASH Stop: 11/16/22 20:59 Last Admin: 10/18/22 21:03 Dose: 400 mg Glucagon (Glucagon For Inj 1 Mg Vial) 1 mg SQ UD PRN; Protocol PRN Reason: Hypoglycemia Protocol Stop: 11/16/22 19:48 Glucose (Glucose 10 Tab/Tube) 4 - 8 tab PO UD PRN; Protocol PRN Reason: Hypoglycemia Treatment Stop: 11/16/22 19:48 Glucose (Glucose 40% Gel 15 Gm Tube) 15 - 30 gm PO UD PRN; Protocol PRN Reason: Hypoglycemia Protocol Stop: 11/16/22 19:48 Piperacillin Sod/Tazobactam (Sod 4.5 gm/ Dextrose) 120 mls @ 30 mls/hr IV Q12H ASH; Protocol Stop: 10/28/22 03:59 Last Admin: 10/19/22 04:45 Dose: 30 mls/hr Sodium Chloride (Nss 1000ml) 1,000 mls @ 80 mls/hr IV .[id number] ASH Stop: 10/19/22 10:14 Last Infusion: 10/19/22 02:04 Dose: Infused Insulin Aspart (Insulin Aspart Per Unit Charge) 0 units SC ACHS ASH Stop: 11/16/22 20:59 Last Admin: 10/18/22 21:03 Dose: 7 units Levothyroxine Sodium (Levothyroxine Sodium 50 Mcg Tablet) 50 mcg PO DAILYBB [facility] Stop: 11/17/22 06:29 Last Admin: 10/19/22 06:31 Dose: 50 mcg Lisinopril (Lisinopril 10 Mg Tab) 10 mg PO QAM [facility] Stop: 11/18/22 08:59 Miscellaneous (Carbohydrates For Hypoglycemia ) 15 - 30 gm PO UD PRN PRN Reason: Hypoglycemia Protocol Stop: 11/16/22 19:48 Miscellaneous Information (Pharmacy Glycemic Mgmt Consult) 1 each N/A UD PRN PRN Reason: Consult Stop: 11/16/22 19:48 Polysaccharide Iron Complex (Iron Polysaccharide Complex 150 Mg Capsule) 150 mg PO BID [facility] Stop: 11/16/22 20:59 Last Admin: 10/18/22 21:03 Dose: 150 mg
[2022-10-19] MEDS: GABAPENTIN 400 MG CAP PO SCH ×2 (08:51→20:58)
[2022-10-19] MEDS: CALCITRIOL 0.25 MCG CAPSULE PO SCH (08:51)
[2022-10-19] MEDS: ASPIRIN 81 MG ECTAB PO SCH (08:51)
[2022-10-19] MEDS: IRON POLYSACCHARIDE COMPLEX 150 MG CAPSULE PO SCH ×2 (08:51→20:59)
[2022-10-19] MEDS: FAMOTIDINE 20 MG TAB PO SCH ×2 (08:52→20:58)
[2022-10-19] MEDS: INSULIN ASPART PER UNIT CHARGE SC SCH ×4 (08:53→20:57)
[2022-10-19] MEDS: lisinopril 10 MG TAB PO SCH (08:58)
--- NOTE | 2022-10-19 09:11 | Gastroenterology Progress Note ---
Date of Service October 19, 2022 Assessment & Plan (1) Abnormal LFTs: Plan: 82 year old T2DM, HTN, CKD-IV, anemia, dyslipidemia admitted with hypotension, abd pain, nausea/vomiting, elevated LFTs, imaging concerning for CBD stone and now positive blood cultures growing gram negative bacilli s/p ERCP for stone removal and stent placement Avoid aspirin and nonsteroidal anti-inflammatory medicines for 1 week. Advance diet as tolerated Use broad spectrum antibiotics for 2 weeks. Repeat ERCP in 6-8 weeks to remove stent. Will sign off. Thank you for allowing us to participate in the care of this patient. Please call with any acute changes, questions or concerns. Please see addendum below with additional recommendation from my supervising physician. Admission and Anticipated Discharge Date Admission Date: October 17, 2022 Subjective Feeling well! No abd pain. No nausea, vomiting. Completed breakfast tray this AM. ERCP 2022: - The patient has had a cholecystectomy. - Choledocholithiasis and cholangitis was found. Complete removal was accomplished by biliary sphincterotomy and balloon extraction. - One biliary stent was placed into the common bile duct. - One pancreatic stent was placed into the ventral pancreatic duct. Review of Systems Review of Systems: All systems reviewed & are unremarkable except as noted in HPI & below Physical Exam Constitutional: WD/WN, vitals as above Respiratory: normal respiratory effort, lungs clear to auscultation Cardiovascular: Rate/Rhythm: regular rate Gastrointestinal (Abdomen): normal bowel sounds, soft, nontender, no hepatosplenomegaly Skin: no rashes, warm and dry Results & Data Vital Signs (Past 12 Hours) Vital Signs Temp Pulse Pulse Resp BP Pulse Ox O2 Del Method 10/19/22 08:00 61 10/19/22 07:21 36.3 C L 58 L 18 155/66 H 95 Room Air 10/19/22 03:00 36.4 C L 61 19 156/77 H 96 Room Air 10/18/22 23:00 36.6 C 70 18 133/69 96 Room Air Laboratory Results 10/19/22 10/19/22 10/19/22 Range/Units 07:28 07:26 06:01 WBC (4.8-10.8) K/ul RBC (4.20-5.40) M/uL Hgb (12.0-16.0) g/dl Hct (37.0-47.0) % MCV (80.0-100.0) fL MCH (25.0-34.0) pg MCHC (32.0-36.0) g/dL RDW Std Deviation (36.4-46.3) fL RDW Coeff of Aysha (11.5-14.5) % Plt Count (130-400) K/uL MPV (9.4-12.4) fL Sodium 134 L (136-145) mmol/L Potassium 4.5 (3.5-5.1) mmol/L Chloride 100 (98-107) mmol/L Carbon Dioxide 21 (21-32) mmol/L Anion Gap 13 H (3-11) BUN 65 H (6-23) mg/dl Creatinine 3.07 H (0.6-1.2) mg/dl Est Cr Clr Drug Dosing 14.3 ml/min Est GFR ( Amer) 15.4 ml/min Est GFR (Non-Af Amer) 13.3 ml/min BUN/Creatinine Ratio 21.2 H (10-20) Glucose 344 H* (70-99(Fasting)) mg/dl POC Glucose 350 H* 359 H* (70-99) mg/dl Calcium 7.7 L (8.6-10.3) mg/dl Magnesium 1.9 (1.7-2.4) mg/dl Total Bilirubin 1.7 H (0.2-1.0) mg/dl AST 116 H (13-39) U/L ALT 229 H (7-52) U/L Alkaline Phosphatase 101 (34-104) U/L Total Protein 5.8 L (6.0-8.3) gm/dl Albumin 2.8 L (3.4-5.0) gm/dl Globulin 3.0 (2.5-4.0) gm/dl Albumin/Globulin Ratio 0.9 (0.9-2) Triglycerides 402 H (0-150) mg/dl Cholesterol 117 (0-200) mg/dl LDL Cholesterol, Calc TNP VLDL Cholesterol, Calc TNP HDL Cholesterol 7 mg/dl Cholesterol/HDL Ratio 16.7 H (0-5) Antibody ID Comment 10/19/22 10/18/22 10/18/22 Range/Units 06:01 20:36 16:51 WBC 5.02 (4.8-10.8) K/ul RBC 2.87 L (4.20-5.40) M/uL Hgb 8.9 L (12.0-16.0) g/dl Hct 26.1 L (37.0-47.0) % MCV 90.9 (80.0-100.0) fL MCH 31.0 (25.0-34.0) pg MCHC 34.1 (32.0-36.0) g/dL RDW Std Deviation 45.8 (36.4-46.3) fL RDW Coeff of Aysha 13.7 (11.5-14.5) % Plt Count 111 L (130-400) K/uL MPV 10.2 (9.4-12.4) fL Sodium (136-145) mmol/L Potassium (3.5-5.1) mmol/L Chloride (98-107) mmol/L Carbon Dioxide (21-32) mmol/L Anion Gap (3-11) BUN (6-23) mg/dl Creatinine (0.6-1.2) mg/dl Est Cr Clr Drug Dosing ml/min Est GFR ( Amer) ml/min Est GFR (Non-Af Amer) ml/min BUN/Creatinine Ratio (10-20) Glucose (70-99(Fasting)) mg/dl POC Glucose 277 H 171 H (70-99) mg/dl Calcium (8.6-10.3) mg/dl Magnesium (1.7-2.4) mg/dl Total Bilirubin (0.2-1.0) mg/dl AST (13-39) U/L ALT (7-52) U/L Alkaline Phosphatase (34-104) U/L Total Protein (6.0-8.3) gm/dl Albumin (3.4-5.0) gm/dl Globulin (2.5-4.0) gm/dl Albumin/Globulin Ratio (0.9-2) Triglycerides (0-150) mg/dl Cholesterol (0-200) mg/dl LDL Cholesterol, Calc VLDL Cholesterol, Calc HDL Cholesterol mg/dl Cholesterol/HDL Ratio (0-5) Antibody ID Comment 10/18/22 10/18/22 10/17/22 Range/Units 14:55 11:59 14:00 WBC (4.8-10.8) K/ul RBC (4.20-5.40) M/uL Hgb (12.0-16.0) g/dl Hct (37.0-47.0) % MCV (80.0-100.0) fL MCH (25.0-34.0) pg MCHC (32.0-36.0) g/dL RDW Std Deviation (36.4-46.3) fL RDW Coeff of Aysha (11.5-14.5) % Plt Count (130-400) K/uL MPV (9.4-12.4) fL Sodium (136-145) mmol/L Potassium (3.5-5.1) mmol/L Chloride (98-107) mmol/L Carbon Dioxide (21-32) mmol/L Anion Gap (3-11) BUN (6-23) mg/dl Creatinine (0.6-1.2) mg/dl Est Cr Clr Drug Dosing ml/min Est GFR ( Amer) ml/min Est GFR (Non-Af Amer) ml/min BUN/Creatinine Ratio (10-20) Glucose (70-99(Fasting)) mg/dl POC Glucose 132 H 155 H (70-99) mg/dl Calcium (8.6-10.3) mg/dl Magnesium (1.7-2.4) mg/dl Total Bilirubin (0.2-1.0) mg/dl AST (13-39) U/L ALT (7-52) U/L Alkaline Phosphatase (34-104) U/L Total Protein (6.0-8.3) gm/dl Albumin (3.4-5.0) gm/dl Globulin (2.5-4.0) gm/dl Albumin/Globulin Ratio (0.9-2) Triglycerides (0-150) mg/dl Cholesterol (0-200) mg/dl LDL Cholesterol, Calc VLDL Cholesterol, Calc HDL Cholesterol mg/dl Cholesterol/HDL Ratio (0-5) Antibody ID Comment
--- NOTE | 2022-10-19 11:13 | Electrocardiogram Report ---
Test Reason : Blood Pressure : / mmHG Vent. Rate : 073 BPM Atrial Rate : 073 BPM P-R Int : 148 ms QRS Dur : 092 ms QT Int : 424 ms P-R-T Axes : 058 000 017 degrees QTc Int : 467 ms Normal sinus rhythm Normal ECG When compared with ECG of 17-OCT-2022 13:24, QT has shortened Confirmed by Ryan Osborn ([id number] on 10/19/2022 11:13:06 AM Referred By: REFERRED SELF Confirmed By:Gary Osborn
--- NOTE | 2022-10-19 13:17 | Pharmacy Report ---
Pharmacy Glycemic Short Note 2 - Date of Service October 19, 2022 - Glycemic Short BSG Results (Last 24 hours): 10/18/22 10/18/22 10/18/22 14:55 16:51 20:36 Glucose POC Glucose 132 H 171 H 277 H 10/19/22 10/19/22 10/19/22 06:01 07:26 07:28 Glucose 344 H* POC Glucose 359 H* 350 H* 10/19/22 10/19/22 10/19/22 10:46 10:48 12:03 Glucose POC Glucose 387 H* 383 H* 397 H* 10/19/22 12:04 Glucose POC Glucose 389 H* OUTPATIENT ANTIDIABETIC REGIMEN: * Levemir 11 units HS, glipizide 2.5 mg daily, victoza HbA1c: 6.1% (10/18/22) ASSESSMENT: 10/19/22: * BSGs trended up postoperatively yesterday and are now persistently > 300 mg/dL today despite IV insulin bolus and tightened parameters * Likely related to 8 mg IV dexamethasone in OR yesterday * Lunch BSG remains > 300 - will give additional IV insulin bolus and further tighten Novolog parameters * RN to recheck BSG ~1430, if still elevated will consider IV insulin infusion 10/18/22: * BSGs much improved this morning at 145 mg/dL * NPO today for ERCP - in progress at this time * Will continue current insulin orders today w/ slight adjustment to Lantus scale this evening 10/17/22: * 82 year old, type 2 diabetic - presenting with abdominal pain, vomiting, and confusion. A1c ordered for tomorrow AM. Patient on clears, but changing to NPO for possible ERCP tomorrow AM * Plan to have scale for basal insulin at HS this evening 8-10 units. Will start novolog stress of 2 PLAN FOR INPATIENT GLYCEMIC CONTROL: * Hold outpatient oral diabetes medications * Basal insulin * Lantus 20 units SC today * Reassess in AM * Bolus insulin * NovoLog per scale ACHS or Q6hrs while NPO * Goal Range: Low 110 mg/dL - High 140 mg/dL * Correction Factor: 25 mg/dL/unit * Nutritional / Prandial insulin per carb ratio of 1 unit per 6 grams CHO consumed
[2022-10-19] MEDS ORDERED: INSULIN PROTOCOL GOAL RANGE ONE (14:36)
[2022-10-19] MEDS ORDERED: SEVERE STRESS LEVEL ONE (14:36)
[2022-10-19] MEDS ORDERED: STAT IV STA (14:36)
[2022-10-19] MEDS ORDERED: INSULIN REGULAR 250 UNITS in SODIUM CHLORIDE 0.9% 247.5 ML IV SCH (14:45)
[2022-10-19] MEDS ORDERED: INSULIN HUMAN REGULAR IV BOLUS 3.5 UNITS in SYRINGE 0 ML IV ONE (14:45)
--- NOTE | 2022-10-19 16:34 | Hospitalist Progress Note ---
Date of Service October 19, 2022 Assessment & Plan (1) Choledocholithiasis: (2) Acute metabolic encephalopathy: Plan: Patient presenting from home with reports of vomiting, confusion, generalized weakness.In ED, found to have transaminitis and CT ABD/pelvis showing 7 mm stone in the common bile duct. Noted prior history of laparoscopic cholecystectomy in 2020. Acute metabolic encephalopathy Gram-negative bacteremia Choledocholithiasis Transaminitis secondary to above --CT ABD:No bowel wall thickening or obstruction. Possible 7 mm stone at the distal common bile duct. Correlation with LFTs recommended. Follow-up MRCP or ERCP could also be used for further evaluation. Small hiatus hernia. Colonic diverticulosis. No evidence for acute diverticulitis. Normal appendix. Gas within the bladder. This may be due to prior catheterization. --CT head:There is no hemorrhage, mass effect, or evidence of acute territorial ischemia by CT criteria. -- Blood culture positive for gram-negative bacilli --BioFire: Enterobacter results, E. coli --S/P ERCP: Biliary sphincterotomy, prophylactic pancreatic stent placement, biliary stent placement after gallstone extraction by Dr. Marie on 10/18/2022 Continue IV Zosyn for now Repeat blood cultures pending Appreciate GI input Monitor LFTs--trending down Avoid hepatotoxic agents as able Mental status back to baseline Avoid aspirin, NSAIDs for 1 week Tolerating current diet Plan to continue antibiotics for 2 weeks duration Needs ERCP in 6 to 8 weeks for stent removal (3) Elevated troponin: Plan: Elevated troponin in setting of CKD stage IV Prolonged QT interval Moderate aortic stenosis Troponin elevation likely demand ischemia -- Patient denied any chest pain --ECHO: Mild concentric LVH. Left ventricle wall motion is normal. Left ventricle systolic function is normal. EF 55 to 60%. Right ventricle is normal in size and function. Moderate mitral annular calcification. Aortic valve is moderately calcified. Moderate aortic stenosis present. Grade 2 diastolic dysfunction. Mild tricuspid regurgitation. Avoid QTc prolonging meds Appreciate cardiology input May need outpatient pharmacological stress test Noted triglyceridemia on lipid panel Will need repeat lipid panel as outpatient Needs follow-up with cardiology upon discharge (4) Prolonged QT interval: Plan: QTc 525 Avoid QTc prolonging agents Monitor (5) Moderate aortic stenosis: Plan: Moderate aortic stenosis Echo as outpatient (6) CKD (chronic kidney disease), stage IV: Plan: Creatinine 3.0 Follows with nephrology as outpatient (7) HTN (hypertension): Plan: Lisinopril reduced to 10 mg daily Monitor BP (8) DM type 2 (diabetes mellitus, type 2): Plan: Hgb A1c 6.1 Lantus NovoLog per protocol while hospitalized Monitor BGs (9) Anemia: Plan: Normocytic anemia Thrombocytopenia Likely anemia of chronic disease Continue iron supplements Monitor CBC (10) Postsurgical hypothyroidism: Plan: Continue levothyroxine (11) HLD (hyperlipidemia): Plan: Hold statin given elevated LFTs DVT Px SCDs for now Admission and Anticipated Discharge Date Admission Date: October 17, 2022 Subjective Patient is seen and examined at bedside States feeling well today Denies any abdominal pain Tolerating current diet Offers no new complaint Denies any chest pain, dyspnea, dizziness, nausea, vomiting Review of Systems Review of Systems: All systems reviewed & are unremarkable except as noted in Subjective Physical Exam Physical Exam: Physical Exam: Vitals signs as noted above General Appearance:Obese, no apparent distress Head: normocephalic, Atraumatic Eyes: normal inspection, EOMI Neck: supple, Trachea midline Respiratory/Chest: Normal breath sounds, CTA, No accessory muscle use Cardiovascular: S1, S2,+murmur Abdomen/GI:Soft, Non tender, Bowel sounds present Extremities/Musculoskeletal:normal inspection, no edema Neurologic/Psych:AAOX3, grossly no focal neurological deficits Skin: normal color, warm Results & Data Results & Data Vital Signs (Past 12 Hours) Vital Signs Temp Pulse Pulse Resp BP Pulse Ox O2 Del Method 10/19/22 16:13 53 L 10/19/22 15:52 36.4 C L 60 19 140/69 99 Room Air 10/19/22 11:26 36.6 C 57 L 18 123/56 L 97 Room Air 10/19/22 08:00 61 10/19/22 07:21 36.3 C L 58 L 18 155/66 H 95 Room Air Laboratory Results Short CBC 10/19/22 Range/Units 06:01 WBC 5.02 (4.8-10.8) K/ul Hgb 8.9 L (12.0-16.0) g/dl Hct 26.1 L (37.0-47.0) % Plt Count 111 L (130-400) K/uL BMP 10/19/22 06:01 Sodium 134 L Potassium 4.5 Chloride 100 Carbon Dioxide 21 BUN 65 H Creatinine 3.07 H Glucose 344 H* Calcium 7.7 L Liver Function 10/19/22 Range/Units 06:01 Total Bilirubin 1.7 H (0.2-1.0) mg/dl AST 116 H (13-39) U/L ALT 229 H (7-52) U/L Alkaline Phosphatase 101 (34-104) U/L Albumin 2.8 L (3.4-5.0) gm/dl
[2022-10-20] MEDS: PIPERACILLIN/TAZOBACTAM 4.5 GM in DEXTROSE 5% 100 ML IV SCH (04:10)
[2022-10-20] MEDS: INSULIN ASPART PER UNIT CHARGE SC SCH ×3 (04:12→13:39)
[2022-10-20 06:16] LABS: Hematocrit (blood only) 24.9 % (37.0-47.0); Hemoglobin 8.6 g/dl (12.0-16.0); Mean Corpuscular Hemoglobin 30.9 pg (25.0-34.0); Mean Corpuscular Hgb Conc 34.5 g/dL (32.0-36.0); Mean Corpuscular Volume 89.6 fL (80.0-100.0); Mean Platelet Volume 10.8 fL (9.4-12.4); Platelet Count 121 K/uL (130-400); RDW Coefficient of Variation 13.3 % (11.5-14.5); RDW Standard Deviation 44.2 fL (36.4-46.3); Red Blood Count 2.78 M/uL (4.20-5.40); White Blood Count 7.03 K/ul (4.8-10.8)
[2022-10-20] MEDS: LEVOTHYROXINE SODIUM 50 MCG TABLET PO SCH (06:23)
[2022-10-20 06:42] LABS: Albumin Level 2.8 gm/dl (3.4-5.0); Calcium 7.6 mg/dl (8.6-10.3); Creatinine Clr Calc Pharmacy 14.4 ml/min; Est GFR (African American) 15.6 ml/min; Est GFR (Non-African American) 13.5 ml/min; Globulin 2.8 gm/dl (2.5-4.0); Potassium 4.2 mmol/L (3.5-5.1); Total Protein 5.6 gm/dl (6.0-8.3)
[2022-10-20] MEDS: FAMOTIDINE 20 MG TAB PO SCH (08:18)
[2022-10-20] MEDS: IRON POLYSACCHARIDE COMPLEX 150 MG CAPSULE PO SCH (08:18)
[2022-10-20] MEDS: CALCITRIOL 0.25 MCG CAPSULE PO SCH (08:18)
[2022-10-20] MEDS: GABAPENTIN 400 MG CAP PO SCH (08:18)
[2022-10-20] MEDS: lisinopril 10 MG TAB PO SCH (08:19)
[2022-10-20 12:02] LABS: Appearance Urine Clear (Clear); Bacteria Urine Automated Negative (Negative); Bilirubin Urine Negative (Negative); Blood Urine Negative (Negative); Color Urine Yellow; Epithelial Cell Urine Auto >30 /lpf (0-5); Glucose Urine UA Trace (Negative); Ketones Urine Negative (Negative); Leukocyte Esterase Urine Negative (Negative); Nitrite Urine Negative (Negative); Protein Urine 2+ (Negative); RBC Urine Automated 0-4 /hpf (0-4); Specific Gravity Urine 1.018 (1.000-1.030); Urobilinogen Urine Negative (Negative); pH Urine 5.5 (4.5-7.5)
[2022-10-20] MEDS ORDERED: LANTUS PER UNIT CHARGE SQ ONE (12:30)
--- NOTE | 2022-10-20 13:02 | Hospitalist Progress Note ---
Date of Service October 20, 2022 Assessment & Plan (1) Choledocholithiasis: (2) Acute metabolic encephalopathy: Plan: Patient presenting from home with reports of vomiting, confusion, generalized weakness.In ED, found to have transaminitis and CT ABD/pelvis showing 7 mm stone in the common bile duct. Noted prior history of laparoscopic cholecystectomy in 2020. Acute metabolic encephalopathy Gram-negative bacteremia Choledocholithiasis Transaminitis secondary to above --CT ABD:No bowel wall thickening or obstruction. Possible 7 mm stone at the distal common bile duct. Correlation with LFTs recommended. Follow-up MRCP or ERCP could also be used for further evaluation. Small hiatus hernia. Colonic diverticulosis. No evidence for acute diverticulitis. Normal appendix. Gas within the bladder. This may be due to prior catheterization. --CT head:There is no hemorrhage, mass effect, or evidence of acute territorial ischemia by CT criteria. -- Blood culture positive for gram-negative bacilli --BioFire: Enterobacter results, E. coli --S/P ERCP: Biliary sphincterotomy, prophylactic pancreatic stent placement, biliary stent placement after gallstone extraction by Dr. Marie on 10/18/2022 Continue IV Zosyn while hospitalized Repeat blood cultures: Negative to date Appreciate GI input Monitor LFTs--trending down Avoid hepatotoxic agents as able Mental status back to baseline Avoid aspirin, NSAIDs for 1 week Tolerating current diet Needs ERCP in 6 to 8 weeks for stent removal Plan to transition to levofloxacin, metronidazole upon discharge to complete the antibiotic course (3) Elevated troponin: Plan: Elevated troponin in setting of CKD stage IV Prolonged QT interval Moderate aortic stenosis Troponin elevation likely demand ischemia -- Patient denied any chest pain --ECHO: Mild concentric LVH. Left ventricle wall motion is normal. Left ventricle systolic function is normal. EF 55 to 60%. Right ventricle is normal in size and function. Moderate mitral annular calcification. Aortic valve is moderately calcified. Moderate aortic stenosis present. Grade 2 diastolic dysfunction. Mild tricuspid regurgitation. Avoid QTc prolonging meds Appreciate cardiology input May need outpatient pharmacological stress test Noted triglyceridemia on lipid panel Will need repeat lipid panel as outpatient Needs follow-up with cardiology upon discharge (4) Prolonged QT interval: Plan: Repeat EKG: QTc better Monitor (5) Moderate aortic stenosis: Plan: Moderate aortic stenosis Echo as outpatient (6) CKD (chronic kidney disease), stage IV: Plan: Creatinine 3.0 Follows with nephrology as outpatient (7) HTN (hypertension): Plan: Lisinopril reduced to 10 mg daily Monitor BP (8) DM type 2 (diabetes mellitus, type 2): Plan: Hgb A1c 6.1 Lantus NovoLog per protocol while hospitalized Monitor BGs (9) Anemia: Plan: Normocytic anemia Thrombocytopenia Likely anemia of chronic disease Continue iron supplements Monitor CBC (10) Postsurgical hypothyroidism: Plan: Continue levothyroxine (11) HLD (hyperlipidemia): Plan: Hold statin given elevated LFTs DVT Px SCDs Disposition Home Admission and Anticipated Discharge Date Admission Date: October 17, 2022 Subjective Patient is seen and examined at bedside States feeling a lot better today No new complaints Updated patient's daughter over the phone Denies any chest pain, dyspnea, dizziness, nausea, vomiting, abdominal pain Review of Systems Review of Systems: All systems reviewed & are unremarkable except as noted in Subjective Physical Exam Physical Exam: Physical Exam: Vitals signs as noted above General Appearance:Obese, no apparent distress Head: normocephalic, Atraumatic Eyes: normal inspection, EOMI Neck: supple, Trachea midline Respiratory/Chest: Normal breath sounds, CTA, No accessory muscle use Cardiovascular: S1, S2,+murmur Abdomen/GI:Soft, Non tender, Bowel sounds present Extremities/Musculoskeletal:normal inspection, no edema Neurologic/Psych:AAOX3, grossly no focal neurological deficits Skin: normal color, warm Results & Data Results & Data Vital Signs (Past 12 Hours) Vital Signs Temp Pulse Pulse Resp BP Pulse Ox O2 Del Method 10/20/22 11:59 36.3 C L 62 18 177/76 H 100 Room Air 10/20/22 07:15 56 L 10/20/22 08:00 36.4 C L 55 L 16 168/65 H 100 Room Air 10/20/22 03:00 36.3 C L 51 L 16 128/60 98 Room Air Laboratory Results Short CBC 10/20/22 Range/Units 05:38 WBC 7.03 (4.8-10.8) K/ul Hgb 8.6 L (12.0-16.0) g/dl Hct 24.9 L (37.0-47.0) % Plt Count 121 L (130-400) K/uL BMP 10/20/22 05:38 Sodium 134 L Potassium 4.2 Chloride 101 Carbon Dioxide 23 BUN 67 H Creatinine 3.04 H Glucose 130 H Calcium 7.6 L Liver Function 10/20/22 Range/Units 05:38 Total Bilirubin 1.0 D (0.2-1.0) mg/dl AST 62 H (13-39) U/L ALT 169 H (7-52) U/L Alkaline Phosphatase 98 (34-104) U/L Albumin 2.8 L (3.4-5.0) gm/dl Urine 10/20/22 Range/Units Unknown Urine Color Yellow Urine Appearance Clear (Clear) Urine pH 5.5 (4.5-7.5) Ur Specific Ewing 1.018 (1.000-1.030) Urine Protein 2+ H (Negative) Urine Glucose (UA) Trace H (Negative)
[2022-10-20] MEDS ORDERED: levoFLOXacin 750 MG TAB PO ONE (13:45)
--- NOTE | 2022-10-20 14:10 | Discharge Summary ---
Date of Service October 20, 2022 Admission HPI Per Admitting Provider 82-year-old female with PMH DM type II, HTN, CKD stage IV, anemia, HLD, and other problems listed below who presents to the ED for evaluation of abdominal pain, vomiting, confusion, generalized weakness. History obtained from the patient and daughter at the bedside as well as review of outpatient cardiology records. Last evening around 5:00, patient developed vomiting. Daughter states that patient struggles with chronic nausea and vomiting from time to time however this was much worse last evening. Patient had gone to bed and states that she woke up around 4 AM to go to the bathroom and she slid out of bed onto the floor. Granddaughter found her on the floor at 730. Patient progressively got more confused and generally weak throughout the day and also with worsening vomiting. EMS was called and patient was brought to the ED for further evaluation. Patient denies fevers and chills. No chest pain or shortness of breath. Denies lightheadedness, dizziness, diaphoresis, syncopal events. No urinary symptoms. Patient did require a small dose of epinephrine in route due to hypotension, BPs have since been stable. In the ED, labs show transaminitis, HS troponin 368, procalcitonin > 200. CT ABD/pelvis shows 7 mm stone in the common bile duct. Patient was given IV cefepime, IV Protonix, IVF. Admission Exam Per Admitting Provider Constitutional: WD/WN, vitals as above no acute distress Eyes: PERRL, conjunctivae normal, anicteric sclerae ENMT: external ear and nose normal, oropharynx normal Respiratory: normal respiratory effort, lungs clear to auscultation Cardiovascular: Rate/Rhythm: regular rate and regular rhythm Heart Sounds: + murmur (Grade 3/6, systolic) Vessels: normal peripheral pulses Extremities: no edema Gastrointestinal (Abdomen): normal bowel sounds, soft, nontender, no hepatosplenomegaly Musculoskeletal: no cyanosis or clubbing, extremities motor strength 5/5 Skin: no rashes, warm and dry Neurologic: PERRL, EOMI, accommodation nl, no face palsy, no dysarthria Psychiatric: A+Ox3, euthymic affect Cognition: + recent memory not intact Insight: + limited insight Principal Diagnosis Acute Cholangitis Gram-negative bacteremia Acute metabolic encephalopathy Elevated troponin Discharge Data Allergies Allergy/AdvReac Type Severity Reaction Status Date / Time sulfamethoxazole Allergy unknown Unverified 10/14/20 14:58 [From Bactrim] reaction trimethoprim [From Bactrim] Allergy unknown Unverified 10/14/20 14:58 reaction Consultations 10/17/22 17:36 ED Decision to Admit Stat 10/17/22 17:42 Consult Cardiology Routine 10/17/22 19:22 HIM [Consult Health Information Management] Stat 10/17/22 19:49 Consult Gastroenterology Routine Procedures Performed Operation Date: 10/18/22 08:30 Actual Procedures p Endoscopic Retrograde Cholangiopancreatography(Not Applicable) - Brii Marie, DO Laboratory Results WBC 7.03 K/ul (4.8-10.8) 10/20/22 05:38 RBC 2.78 M/uL (4.20-5.40) L 10/20/22 05:38 Hgb 8.6 g/dl (12.0-16.0) L 10/20/22 05:38 POC Hgb 8.8 g/dl (12.0-16.0) L 10/17/22 13:34 Hct 24.9 % (37.0-47.0) L 10/20/22 05:38 POC Hct 26 % (37-47) L 10/17/22 13:34 MCV 89.6 fL (80.0-100.0) 10/20/22 05:38 MCH 30.9 pg (25.0-34.0) 10/20/22 05:38 MCHC 34.5 g/dL (32.0-36.0) 10/20/22 05:38 RDW Std Deviation 44.2 fL (36.4-46.3) 10/20/22 05:38 RDW Coeff of Aysha 13.3 % (11.5-14.5) 10/20/22 05:38 Plt Count 121 K/uL (130-400) L 10/20/22 05:38 MPV 10.8 fL (9.4-12.4) 10/20/22 05:38 Immature Gran % (Auto) 2.2 % 10/17/22 13:21 Neut % (Auto) 88.0 % 10/17/22 13:21 Lymph % (Auto) 4.9 % 10/17/22 13:21 Cannon % (Auto) 4.8 % 10/17/22 13:21 Eos % (Auto) 0.0 % 10/17/22 13:21 Baso % (Auto) 0.1 % 10/17/22 13:21 Neut # (Auto) 6.93 K/uL (1.40-6.50) H 10/17/22 13:21 Lymph # (Auto) 0.39 K/uL (1.2-3.4) L 10/17/22 13:21 Cannon # (Auto) 0.38 K/uL (0.11-0.59) 10/17/22 13:21 Eos # (Auto) 0.00 K/uL (0-0.50) 10/17/22 13:21 Baso # (Auto) 0.01 K/uL (0-0.2) 10/17/22 13:21 Immature Gran # (Auto) 0.17 K/uL (0.01-0.20) 10/17/22 13:21 Dohle Bodies 2+ 10/17/22 13:21 VBG pH 7.39 (7.36-7.41) 10/17/22 15:19 VBG pCO2 37 mmHg (38-50) L 10/17/22 15:19 VBG pO2 60 mmHg 10/17/22 15:19 VBG HCO3 22 mmol/L 10/17/22 15:19 VBG O2 Saturation 92.4 % 10/17/22 15:19 VBG Base Excess -2.2 mEq/L 10/17/22 15:19 POC Sodium 133 mmol/L (135-144) L 10/17/22 13:34 Sodium 134 mmol/L (136-145) L 10/20/22 05:38 POC Potassium 3.4 mmol/L (3.3-5.0) 10/17/22 13:34 Potassium 4.2 mmol/L (3.5-5.1) 10/20/22 05:38 POC Chloride 95 mmol/L (101-112) L 10/17/22 13:34 Chloride 101 mmol/L (98-107) 10/20/22 05:38 Carbon Dioxide 23 mmol/L (21-32) 10/20/22 05:38 POC Total CO2 22 mmol/L (24-31) L 10/17/22 13:34 Anion Gap 10 (3-11) 10/20/22 05:38 POC Anion Gap 20.0 mmol/L (16-25) 10/17/22 13:34 POC BUN 45 mg/dl (7-18) H 10/17/22 13:34 BUN 67 mg/dl (6-23) H 10/20/22 05:38 Creatinine 3.04 mg/dl (0.6-1.2) H 10/20/22 05:38 POC Creatinine 3.4 mg/dl (0.6-1.3) H 10/17/22 13:34 Est Cr Clr Drug Dosing 14.4 ml/min 10/20/22 05:38 Est GFR ( Amer) 15.6 ml/min 10/20/22 05:38 Est GFR (Non-Af Amer) 13.5 ml/min 10/20/22 05:38 BUN/Creatinine Ratio 22.0 (10-20) H 10/20/22 05:38 Glucose 130 mg/dl (70-99(Fasting)) H 10/20/22 05:38 POC Glucose 277 mg/dl (70-99) H 10/20/22 12:07 POC Glucose (other) 262 mg/dl (70-99) H 10/17/22 13:34 Estimat Average Glucose 128 mg/dl 10/18/22 06:21 Hemoglobin A1c 6.1 % (4.5-5.6) H 10/18/22 06:21 Lactate 1.5 mmol/L (0.4-2.0) 10/17/22 16:14 Calcium 7.6 mg/dl (8.6-10.3) L 10/20/22 05:38 POC Ioniz Calcium Art 1.00 mmol/l (1.12-1.32) L 10/17/22 13:34 Magnesium 1.9 mg/dl (1.7-2.4) 10/19/22 06:01 Total Bilirubin 1.0 mg/dl (0.2-1.0) D 10/20/22 05:38 Direct Bilirubin 2.8 mg/dl (0-0.2) H 10/17/22 13:21 AST 62 U/L (13-39) H 10/20/22 05:38 ALT 169 U/L (7-52) H 10/20/22 05:38 Alkaline Phosphatase 98 U/L (34-104) 10/20/22 05:38 Total Creatine Kinase 281 U/L (26-192) H 10/17/22 13:21 Troponin I High Sens 398.9 pg/ml (0-14) H* 10/18/22 00:41 Total Protein 5.6 gm/dl (6.0-8.3) L 10/20/22 05:38 Albumin 2.8 gm/dl (3.4-5.0) L 10/20/22 05:38 Globulin 2.8 gm/dl (2.5-4.0) 10/20/22 05:38 Albumin/Globulin Ratio 1.0 (0.9-2) 10/20/22 05:38 Triglycerides 402 mg/dl (0-150) H 10/19/22 06:01 Cholesterol 117 mg/dl (0-200) 10/19/22 06:01 LDL Cholesterol, Calc TNP 10/19/22 06:01 VLDL Cholesterol, Calc TNP 10/19/22 06:01 HDL Cholesterol 7 mg/dl 10/19/22 06:01 Cholesterol/HDL Ratio 16.7 (0-5) H 10/19/22 06:01 Procalcitonin > 200.00 ng/ml (0-0.5) H 10/17/22 13:21 Urine Color Yellow 10/20/22 Unknown Urine Appearance Clear (Clear) 10/20/22 Unknown Urine pH 5.5 (4.5-7.5) 10/20/22 Unknown Ur Specific [place] 1.018 (1.000-1.030) 10/20/22 Unknown Urine Protein 2+ (Negative) H 10/20/22 Unknown Urine Glucose (UA) Trace (Negative) H 10/20/22 Unknown Urine Ketones Negative (Negative) 10/20/22 Unknown Urine Blood Negative (Negative) 10/20/22 Unknown Urine Nitrite Negative (Negative) 10/20/22 Unknown Urine Bilirubin Negative (Negative) 10/20/22 Unknown Urine Urobilinogen Negative (Negative) 10/20/22 Unknown Ur Leukocyte Esterase Negative (Negative) 10/20/22 Unknown Urine WBC (Auto) 1-5 /hpf (0-5) 10/20/22 Unknown Urine RBC (Auto) 0-4 /hpf (0-4) 10/20/22 Unknown U Hyaline Cast (Auto) 1-5 /lpf (0-5) 10/20/22 Unknown U Epithel Cells (Auto) >30 /lpf (0-5) H 10/20/22 Unknown Urine Bacteria (Auto) Negative (Negative) 10/20/22 Unknown Enterobacterales (PCR) DETECTED (NotDetected) A 10/17/22 13:21 E. coli (PCR) DETECTED (NotDetected) A 10/17/22 13:21 SARS-CoV-2, RNA, NAAT NEGATIVE (NEGATIVE) 10/17/22 17:41 mcr-1 Colistin Res Gene PCR Not Detected (NotDetected) 10/17/22 13:21 blaIMP Car res Gene PCR Not Detected (NotDetected) 10/17/22 13:21 KPC-Carbap Res Gene PCR Not Detected (NotDetected) 10/17/22 13:21 blaNDM Car Res Gene PCR Not Detected (NotDetected) 10/17/22 13:21 OXA-48 Carbapenem Resis Gene (PCR) Not Detected (NotDetected) 10/17/22 13 :21 blaVIM Car Res Gene PCR Not Detected (NotDetected) 10/17/22 13:21 CTX-M Gene Resistance (PCR) Not Detected (NotDetected) 10/17/22 13:21 Bld Cult ID Panel PCR See PCR Comment (NotDetected) 10/17/22 13:21 Blood Type O Negative 10/17/22 14:00 Antibody Screen POSITIVE A 10/17/22 14:00 Antibody Identification Anti-D Anti-E 10/17/22 14:00 Antibody Identification Anti-D Anti-E 10/17/22 14:00 Antibody ID Comment 10/17/22 14:00 Impressions Chest X-Ray 10/17/22 13:31 XR chest 1V portable HISTORY: Sepsis COMPARISON: None. FINDINGS: The heart is enlarged. Rotated study. No pneumothorax. There are low lung volumes. Mild central pulmonary vascular congestion without overt edema. Bibasilar linear densities favor subsegmental atelectasis. IMPRESSION: 1. Mild central pulmonary vascular congestion without overt edema. 2. Cardiomegaly. 3. Low lung volumes with bibasilar linear densities. This favors subsegmental atelectasis. ACT 112: Negative or not required by law. Electronically signed by: Christiano Nieto M.D. 10/17/2022 2:55 PM Abdomen/Pelvis CT 10/17/22 13:[address] WITHOUT CONTRAST CT DOSE: HISTORY: Nausea. Vomiting. Abdominal pain. TECHNIQUE: Multiaxial CT images of the abdomen and pelvis were performed without contrast. A dose lowering technique was utilized adhering to the principles of ALARA. COMPARISON STUDY: None. FINDINGS: Bibasilar densities favor subsegmental atelectasis. No pneumop eritoneum. No pneumatosis. No acute fractures identified. The heart is mildly enlarged. There is a small hiatus hernia. There is a surgical clip within the proximal stomach. Hyperdense material within the proximal stomach favors ingested contents. Cholecystectomy. Hepatic steatosis. The unenhanced spleen, adrenal glands, and pancreas unremarkable. The common bile duct is mildly distended measuring up to 11 mm. Possible 7 mm hyperdense focus at the distal common bile duct on image 140. This raises the possibility of a distal common bile duct stone. Bilateral cortical renal atrophy is noted. No renal or ureteral calculi. No hydronephrosis. No retroperitoneal lymphadenopathy. Calcified plaque within the normal caliber abdominal aorta. Gas within the bladder. No bladder wall thickening. There is a small amount of gas within the vagina. The uterus and ovaries are within normal limits. No pelvic lymphadenopathy or pelvic free fluid. Colonic diverticulosis. No evidence for acute diverticulitis. Calcified nodule within the left lower quadrant adjacent to the proximal sigmoid colon. This is likely benign. No bowel wall thickening or obstruction. Normal appendix. IMPRESSION: 1. No bowel wall thickening or obstruction. 2. Possible 7 mm stone at the distal common bile duct. Correlation with LFTs recommended. Follow-up MRCP or ERCP could also be used for further evaluation. 3. Small hiatus hernia. 4. Colonic diverticulosis. No evidence for acute diverticulitis. 5. Normal appendix. 6. Gas within the bladder. This may be due to prior catheterization. 7. Additional findings as described above. ACT 112: Negative or not required by law. Electronically signed by: Christiano Nieto M.D. 10/17/2022 3:[address] 10/17/22 13:32 CT SCAN OF THE BRAIN WITHOUT IV CONTRAST CLINICAL HISTORY: Vomiting. Change in mental status. COMPARISON STUDY: CT of the brain dated 10/14/2020. TECHNIQUE: Unenhanced axial CT scan of the brain is performed from the vertex to the skull base. A dose lowering technique was utilized adhering to the principles of ALARA. FINDINGS: Brain parenchyma: There is age-related involutional change noting mild sub cortical and periventricular microangiopathic disease. There is no hemorrhage, mass effect, or evidence of acute territorial ischemia by CT criteria. Shell- white matter differentiation is preserved. No extra-axial fluid collection is seen. Ventricles, sulci, cisterns: Prominent secondary to involutional change. Intracranial vasculature: There is atherosclerotic calcification of the cavernous carotid and vertebral artery. Calvarium: Unremarkable. Sinuses and mastoids: There is a 1.6 cm retention cyst in the left maxillary antrum. The remaining paranasal sinuses are clear. The mastoid air cells are well pneumatized. Orbits: The bony orbits are grossly intact. There are bilateral ocular lens implants. IMPRESSION: There is no hemorrhage, mass effect, or evidence of acute territori al ischemia by CT criteria. ACT 112: Negative or not required by law. Electronically signed by: Andrew Sanders M.D. 10/17/2022 2:[address] 10/17/22 13:45 CT chest diagnostic wo con CLINICAL HISTORY: abn cxr, ams TECHNIQUE: Multidetector row helical CT of the chest was performed. Coronal and sagittal reformations were obtained. Automated dose lowering techniques and/or adjustment according to patient size were utilized for this exam. CT DOSE: 2837.45 mGy.cm Comparison: Comparison is made to chest radiograph 10/17/2022 FINDINGS: Lungs and pleura: Atelectasis versus scarring is seen in the dependent portions of the lungs. Heart and pericardium: Mitral enlargement is seen. Calcifications are noted. Vessels: Severe atherosclerotic changes in the aorta and coronary arteries. Mediastinum and sara: Unremarkable. Chest wall and lower neck: Unremarkable. Abdomen: For findings below the diaphragm, please refer to CT of the abdomen dated the same. Bones: Degenerative changes in the thoracic spine. IMPRESSION: 1. Atelectasis is seen without evidence of consolidation. 2. Cardiomegaly with biatrial enlargement, mitral annular calcifications are seen. ACT 112: Negative or not required by law. Electronically signed by: Sandro Arora M.D. 10/17/2022 2:11 PM Ordered Studies 10/17/22 13:32 CT abd pelvis wo con Stat CT head/brain wo con Stat 10/17/22 13:45 CT chest diagnostic wo con Stat 10/18/22 13:45 FL ERCP biliary ductal Routine Hospital Course (1) Choledocholithiasis: (2) Acute metabolic encephalopathy: Patient presenting from home with reports of vomiting, confusion, generalized weakness.In ED, found to have transaminitis and CT ABD/pelvis showing 7 mm stone in the common bile duct. Noted prior history of laparoscopic cholecystectomy in 2020. Acute metabolic encephalopathy Acute Cholangitis-POA Gram-negative bacteremia Choledocholithiasis Transaminitis secondary to above --CT ABD:No bowel wall thickening or obstruction. Possible 7 mm stone at the distal common bile duct. Correlation with LFTs recommended. Follow-up MRCP or ERCP could also be used for further evaluation. Small hiatus hernia. Colonic diverticulosis. No evidence for acute diverticulitis. Normal appendix. Gas within the bladder. This may be due to prior catheterization. --CT head:There is no hemorrhage, mass effect, or evidence of acute territorial ischemia by CT criteria. -- Blood culture positive for gram-negative bacilli --BioFire: Enterobacter results, E. coli --S/P ERCP: Biliary sphincterotomy, prophylactic pancreatic stent placement, biliary stent placement after gallstone extraction by Dr. Marie on 10/18/2022 Continue IV Zosyn while hospitalized Repeat blood cultures: Negative to date Appreciate GI input Monitor LFTs--trending down Avoid hepatotoxic agents as able Mental status back to baseline Avoid aspirin, NSAIDs for 1 week Tolerating current diet Needs ERCP in 6 to 8 weeks for stent removal Plan to transition to levofloxacin, metronidazole upon discharge to complete the antibiotic course (3) Elevated troponin: Elevated troponin in setting of CKD stage IV Prolonged QT interval Moderate aortic stenosis Troponin elevation likely demand ischemia -- Patient denied any chest pain --ECHO: Mild concentric LVH. Left ventricle wall motion is normal. Left ventricle systolic function is normal. EF 55 to 60%. Right ventricle is normal in size and function. Moderate mitral annular calcification. Aortic valve is moderately calcified. Moderate aortic stenosis present. Grade 2 diastolic dysfunction. Mild tricuspid regurgitation. Avoid QTc prolonging meds Appreciate cardiology input May need outpatient pharmacological stress test Noted triglyceridemia on lipid panel Will need repeat lipid panel as outpatient Needs follow-up with cardiology upon discharge (4) Prolonged QT interval: Repeat EKG: QTc better Monitor (5) Moderate aortic stenosis: Moderate aortic stenosis Echo as outpatient (6) CKD (chronic kidney disease), stage IV: Creatinine 3.0 Follows with nephrology as outpatient (7) HTN (hypertension): Lisinopril reduced to 10 mg daily Monitor BP (8) DM type 2 (diabetes mellitus, type 2): Hgb A1c 6.1 Lantus NovoLog per protocol while hospitalized Monitor BGs (9) Anemia: Normocytic anemia Thrombocytopenia Likely anemia of chronic disease Continue iron supplements Monitor CBC (10) Postsurgical hypothyroidism: Continue levothyroxine (11) HLD (hyperlipidemia): Hold statin given elevated LFTs DVT Px SCDs Disposition Home Total Time Total Time Spent Total Time Spent (In Minutes): 64 minutes Discharge Plan Discharge Items Patient Disposition: Home - Self-Care Reason For Visit: CHOLEDOCHOLITHIASIS Discharge Diagnosis: Cholangitis Gram-negative bacteremia Acute metabolic encephalopathy Elevated troponin Activity: Per Instructions section Exercise/Sports: Wait until after follow-up appointment Non-emergency contact: Primary Care Provider, [employer] Call non-emergency contact if: you have any medication questions, your symptoms worsen, your pain is concerning for you and you have a fever Follow-up/Referrals: Ephraim Drummond [Primary Care Provider] - (Dr Drummond's office will be notified of your discharge. Please call the office if you are not notified of a hospital follow up appointment.) Brii Marie DO [Physician] - (The GI office will contact you with instructions for stent removal on 12/29/22.) Glory Crews PA-C [Physician [employer] External] - (Date & Time 12/01/2022 3:00 PM Provider Glory Crews PA-C Department Cardiology, [facility] ) Diet: Carb Consistent or DM2 and Low Fat Addtl Attending Provider Instructions: Follow-up with your fiberglass bonding machine tender Dr. Drummond in 1 week as advised Follow-up with your fresh foods cake decorator Dr. Marie for repeat ERCP and stent removal Follow-up with your fiberglass bonding machine tender Glory Crews PA-C scheduled --- Hold taking aspirin for 1 week as advised --- Hold taking iron supplements for 2 weeks until completion of antibiotic course. --- Complete antibiotic course levofloxacin (next dose 10/22/2022) , metronidazole (started from 10/20/2022) as prescribed --- Your lisinopril dose is decreased to 10 mg daily as recommended by your fiberglass bonding machine tender --- Final blood cultures are pending at the time of discharge. Follow-up with your physician for results. Seek immediate medical attention if your symptoms reoccur or worsen Please take all medications as instructed on discharge list below. Please call if you have any questions or problems. You can reach a [facility] hospitalist on duty at [facility] 24 hours a day by calling [phone] Pending Studies at Discharge: Yes Studies:: Blood Cultures Stand-Alone Forms: My [facility], Smoking Cessation Medications and DC Order Prescriptions: New levofloxacin 500 mg Tablet 500 mg PO Q2D@1400 Qty: 6 0RF Rx Instructions: Start from 10/22/22 metronidazole 500 mg tablet 500 mg PO TID 12 Days Qty: 36 0RF Continued furosemide 40 mg tablet 40 mg PO DAILY atorvastatin 40 mg tablet 40 mg PO QPM famotidine 20 mg tablet 20 mg PO BID levothyroxine 50 mcg tablet 50 mcg PO DAILY docusate sodium 100 mg capsule 100 mg PO BID PRN (Reason: Other) Levemir FlexTouch U100 Insulin 100 unit/mL (3 mL) insulin pen 11 unit SUBCUT HS Victoza 3-George 0.6 mg/0.1 mL (18 mg/3 mL) pen injector 1.8 mg SUBCUT QAM gabapentin 400 mg capsule 400 mg PO BID Rx Instructions: per grand daughter script is for three times a day, currently she takes 2 capsules. sodium bicarbonate 650 mg Tablet 650 mg PO BID PRN (Reason: Other) cholecalciferol (vitamin D3) 125 mcg (5,000 unit) capsule 125 mcg PO DAILY glipizide 2.5 mg Tablet Extended Release 24hr 2.5 mg PO DAILY calcitriol 0.25 mcg capsule 0.25 mcg PO DAILY loratadine [Allergy Relief (loratadine)] 10 mg tablet 10 mg PO DAILY ezetimibe 10 mg tablet 10 mg PO DAILY diclofenac sodium 1 % gel See Rx Instructions .ROUTE .COMPLEX PRN (Reason: Other) Rx Instructions: as directed Changed lisinopril 20 mg tablet 10 mg PO DAILY Qty: 30 0RF Held aspirin [Alberto Low Dose Aspirin] 81 mg Tablet,Delayed Release (Dr/Ec) 81 mg PO DAILY Hold Instructions: Hold for 1 week polysaccharide iron complex [iFerex 150] 150 mg iron capsule 150 mg PO BID Hold Instructions: Hold for 2 weeks until completion of antibiotic course Discharge Orders: Discharge Order (Routine); Ordered 10/20/22 Ordered By: Larry Alonzo Admission Data Admit Date/Time: 10/17/22 17:41 Attending Provider: Larry Alonzo Admit Provider: Heather Rodriguez Primary Care Provider: Ephraim Drummond Other Providers: Heather Rodriguez ; Lonnie Jones
[2022-10-21] MEDS ORDERED: LANTUS PER UNIT CHARGE SQ SCH (17:00)
[2022-10-22] MEDS ORDERED: levoFLOXacin 500 MG TAB PO SCH (14:00)
== END 2022-10-20 15:10 | disposition home or self-care (01) | DRG 444 ==
LOC: ED 13:12 → SUATTDRO 17:41 → 4W 17:41